=== PATIENT | male | born 1965 | race Caucasian/White ===

== ENCOUNTER 2016-12-25 21:51 | Inpatient (IN) | payer MEDICAID ==
[~2016-12-25] VITALS: Ht 170.2 cm; Wt 77.1 kg
--- NOTE | 2016-12-25 21:51 | NUR ---
Patient was BIBA and taken to bed 05 via gurney per EMS.
[2016-12-25 21:58] VITALS: BP 184/106
--- NOTE | 2016-12-25 22:07 | NUR ---
51Y/M BIBA W/C/O CHEST PAIN X 1 DAY. PER EMS; PT. HAS BEEN DRINKING FOR DAYS AND STATES STARTED HAVING PRESSURE CHEST PAIN THAT COMES AND GOES. ELEVATED BP 216/130, BS 377 ON SCENE. PT DENIES ANY MED HX.
--- NOTE | 2016-12-25 22:08 | NUR ---
ER MD NOTIFIED OF PT'S VS AND CONDITION. EKG DONE AT BEDSIDE.
[2016-12-25] MEDS ORDERED: ONDANSETRON 4 MG/2 ML VIAL IVP ONE (22:35)
[2016-12-25] MEDS ORDERED: NACL 0.9% 1,000 ML IV ONE (22:35)
[2016-12-25 22:49] LABS: HEMATOCRIT 46.5 % (36-52); HEMOGLOBIN 15.7 g/dL (12.0-18.0); MEAN CORPUSCULAR HEMOGLOBIN 31 pg (27-31); MEAN CORPUSCULAR HGB CONC 34 g/dL (33-37); MEAN CORPUSCULAR VOLUME 90 fL (80-94); PLATELET COUNT (AUTO) 308 K/uL (140-450); RED BLOOD CELL COUNT(AUTO) 5.16 MIL/uL (4.20-6.10); RED CELL DISTRIBUTION WIDTH 12.4 % (11.6-13.7); WHITE BLOOD COUNT (AUTO) 18.5 K/uL (4.8-10.8)
[2016-12-25] MEDS ORDERED: LORazepam 2 MG/ML VIAL IVP ONE (22:50)
[2016-12-25 22:52] LABS: ALBUMIN 2.6 g/dL (3.4-5.0); ANION GAP 16.8 (8-16); CALCIUM 6.9 mg/dL (8.5-10.1); CARBON DIOXIDE 22.2 mmol/L (21-32); CREATININE 1.1 mg/dL (0.7-1.3); TOTAL BILIRUBIN 1.9 mg/dL (0.0-1.0); TOTAL PROTEIN, SERUM 7.1 g/dL (6.4-8.2)
[2016-12-25 22:56] LABS: BAND % (MANUAL) 3 % (0-8); LYMPHOCYTES % (MANUAL) 7 % (20-46); MONOCYTES % (MANUAL) 3 % (5-12); NEUTROPHILS % (MANUAL) 87 (43-65)
--- NOTE | 2016-12-25 23:00 | NUR ---
NEW IN LINE 18 GH PLACED ON R FOREARM D/T IV DISLOGEMENT FRM L HAND. PT TOLERATED WELL.
[2016-12-25] MEDS ORDERED: ACETAMINOPHEN 325 MG TAB PO PRN (23:30)
[2016-12-25] MEDS ORDERED: MORPHINE SULFATE 2 MG/ML SYR IVP PRN (23:30)
[2016-12-25] MEDS ORDERED: HYDROcodone/APAP 5/325 MG 1 TAB TAB PO PRN (23:30)
[2016-12-25] MEDS ORDERED: DEXTROSE 50% 50 ML SYR IVP PRN (23:30)
--- NOTE | 2016-12-25 23:34 | NUR ---
Patient will be admitted to care of NIKOLAI. Admited to TELEMERY. Will go to [id number]. Belongings list completed. Report to CARYN FABIAN.
[2016-12-25 23:40] VITALS: BP 158/106
--- NOTE | 2016-12-25 23:40 | NUR ---
Admitted from ER, with chief complaint of CHEST PAIN, DX CHEST PAIN. 51 y/o, Male, DROWSY BUT AROUSABLE, ABLE TO VERBALIZE NEEDS. AOX2 TO NAME AND SITUATION. PT C/O DULL INTERMITTENT CHEST PAIN, REFUSES PAIN MED AT THIS TIME. COMPUTER GRAPHIC DESIGNER IN PLACE. SCDS IN PLACE. PT ABLE TO AMBULATE TO RESTROOM WITH STANDBY ASSIST. IV ACCESS TO RIGHT FOREARM 18G, WILL ADMINISTER IVF. oriented to call light, bed, phone,television, bathroom, smoking policy, visiting hours, procedures, ID bracelet on. Belongings list checked. ALL NEEDS MET. SAFETY MEASURES ENSURED. CALL LIGHT WITHIN REACH. WILL CONTINUE TO MONITOR.
[2016-12-26] VITALS (9 sets, daily range): BP systolic 109–173; BP diastolic 51–107
[2016-12-26] MEDS: NACL 0.9% 1,000 ML IV SCH ×3 (00:15→19:28)
[2016-12-26] MEDS: INSULIN LISPRO SLIDING SCALE 100 UNITS/ML VIAL SUBQ PRN ×2 (00:53→06:32)
--- NOTE | 2016-12-26 00:53 | NUR ---
BLOOD SUGAR 396, INSULIN COVERAGE ADMINISTERED WITH EDUCATION. PT VERBALIZED UNDERSTANDING, TOLERATED MED WELL. IVF INFUSING WELL. SAFETY MEASURES ENSURED. CALL LIGHT WITHIN REACH.
[2016-12-26] MEDS ORDERED: LOSARTAN 25 MG TAB PO SCH (03:53)
[2016-12-26] MEDS ORDERED: METOPROLOL 25 MG TAB PO SCH (03:53)
--- NOTE | 2016-12-26 03:54 | NUR ---
CALLED Dick JOHN MADE AWARE OF PT'S DX AND HX, AND CURRENT HIGH BP 166/107 AND 173/102, HR 92. MD ORDERED METOPROLOL 25MG BID PO WITH FIRST DOSE TO GIVE NOW AND LOSARTAN 50MG DAILY PO WITH FIRST DOSE TO GIVE NOW. ORDERS PENDING, WILL CARRY OUT.
[2016-12-26] MEDS: ONDANSETRON 4 MG/2 ML VIAL IVP PRN ×3 (04:17→19:57)
--- NOTE | 2016-12-26 04:17 | NUR ---
ADMINISTERED METOPROLOL 25MG PO NOW AND LOSARTAN 50MG PO NOW ORDERED DUE TO BP 173/102, HR 92. PT C/O PAIN. SEE PAIN ASSESSMENT. ADMINISTERED NORCO ORDERED. PT C/O NAUSEA. ADMINISTERED ZOFRAN WITH EDUCATION. PT VERBALIZED UNDERSTANDING, TOLERATED MEDS WELL. SAFETY MEASURES ENSURED. CALL LIGHT WITHIN REACH. WILL CONTINUE TO MONITOR.
[2016-12-26] MEDS: LORazepam 1 MG TAB PO SCH ×3 (05:18→20:12)
--- NOTE | 2016-12-26 05:18 | NUR ---
BP RECHECKED, 151/93 AND 158/100, HR 85. PT SITTING AT BEDSIDE, STATING "I FEEL BAD, I'M HAVING WITHDRAWALS." PT C/O RESTLESSNESS AND ANXIETY, MILD SHAKING AT HANDS NOTED. SCHEDULED ATIVAN PO ADMINISTERED WITH EDUCATION. PT VERBALIZED UNDERSTANDING, TOLERATED MED WELL. SAFETY MEASURES ENSURED. WILL CONTINUE TO MONITOR.
--- NOTE | 2016-12-26 05:25 | NUR ---
MADE AWARE BY FAST FOOD CASHIER THAT PT HAD VOMITING EPISODE AFTER ATIVAN PO WAS JUST ADMINISTERED. PT STILL RESTLESS AND FEELING ANXIOUS WITH MILD SHAKING. WILL ADMINISTER ATIVAN IV ORDERED.
[2016-12-26] MEDS: LORazepam 2 MG/ML VIAL IVP PRN ×2 (05:50→11:24)
[2016-12-26] MEDS: BLOOD GLUCOSE MONITORING 1 DEV DEV FS SCH ×4 (05:50→20:15)
--- NOTE | 2016-12-26 05:51 | NUR ---
PT STILL RESTLESS AND ANXIOUS, ADMINISTERED ATIVAN IV ORDERED. BLOOD SUGAR 210, WILL ADMINISTER INSULIN COVERAGE ORDERED.
[2016-12-26 06:27] LABS: HEMATOCRIT 41.8 % (36-52); HEMOGLOBIN 14.6 g/dL (12.0-18.0); MEAN CORPUSCULAR HEMOGLOBIN 31 pg (27-31); MEAN CORPUSCULAR HGB CONC 35 g/dL (33-37); MEAN CORPUSCULAR VOLUME 89 fL (80-94); PLATELET COUNT (AUTO) 248 K/uL (140-450); RED BLOOD CELL COUNT(AUTO) 4.68 MIL/uL (4.20-6.10); RED CELL DISTRIBUTION WIDTH 12.6 % (11.6-13.7); WHITE BLOOD COUNT (AUTO) 15.2 K/uL (4.8-10.8)
--- NOTE | 2016-12-26 06:38 | NUR ---
PATIENT HAS BEEN SCREENED AND CATEGORIZED HIGH NUTRITION RISK. PATIENT WILL BE SEEN WITHIN 1-2 DAYS OF ADMISSION. 12/25/16-12/26/16 ESDRAS BURNETT MS, RDN
--- NOTE | 2016-12-26 06:41 | NUR ---
PT SLEEPING BUT AROUSABLE. BLOOD SUGAR 210, INSULIN COVERAGE ADMINISTERED WITH EDUCATION. PT VERBALIZED UNDERSTANDING, TOLERATED MED WELL. BP RECHECKED, 144/95, HR 73. CONDITION STABLE. SAFETY MEASURES ENSURED. CALL LIGHT WITHIN REACH.
[2016-12-26 07:22] LABS: CALCIUM 6.8 mg/dL (8.5-10.1); CARBON DIOXIDE 23.8 mmol/L (21-32); POTASSIUM 3.8 mmol/L (3.5-5.1)
--- NOTE | 2016-12-26 07:26 | NUR ---
RECEIVED LAB RESULT FOR SODIUM 118. DR Dick BRAVO NOTIFIED. NO NEW ORDERS.
--- NOTE | 2016-12-26 07:32 | NUR ---
CONDITION STABLE. ENDORSED PLAN OF CARE TO AM NURSE.
--- NOTE | 2016-12-26 07:32 | NUR ---
RECEIVED PT REPORT AT BEDSIDE FROM NIGHT NURSE. PT IS DROWSY AND SHOWS NO S/S OF DISTRESS ON ROOM AIR. PT IS AOX3 AND DENIES PAIN AND SOB. PT SKIN IS INTACT. NOTED IV ON THE R FA WITH IVF'S INFUSING WELL. PT VERBALIZED UNDERSTANDING OF POC FOR TODAY. WILL REINFORCE POC SINCE PT IS DROWSY. PT AMB WITH ASSISTANCE TO THE RESTROOM. PT HAD A BM AND VOIDED. PT AMB WAS UNSTEADY. PT WAS EDUCATED ON USING THE CALL LIGHT IF HE NEEDED TO GET OOB TO USE THE RESTROOM. PT IS LAYING IN BED NOW WITH THE BED LOWERED AND CALL LIGHT WITHIN REACH. PT ON TELE MONITORING WELL.
[2016-12-26 07:36] LABS: NEUTROPHILS % (MANUAL) 86 (43-65)
[2016-12-26 07:37] LABS: BAND % (MANUAL) 4 % (0-8); EOSINOPHILS % (MANUAL) 1 % (0-4); LYMPHOCYTES % (MANUAL) 5 % (20-46); MONOCYTES % (MANUAL) 4 % (5-12)
--- NOTE | 2016-12-26 07:53 | NUR ---
RECEIVED LAB RESULTS OF TROPONIN 0.085. NOTIFIED Dick BRAVO. NO NEW ORDERS.
[2016-12-26 08:05] LABS: CREATINE KINASE MB 25.2 ng/mL (0-3.6)
[2016-12-26 08:59] LABS: MAGNESIUM 1.5 mg/dL (1.8-2.4); PHOSPHORUS 3.7 mg/dL (2.5-4.9)
[2016-12-26] MEDS: LOSARTAN 50 MG TAB PO SCH (09:05)
--- NOTE | 2016-12-26 09:05 | NUR ---
ADMINISTERED SCHEDULED MEDICATIONS. PT TOLERATED ACTIVITY WELL. PT C/O NAUSEA. ADMINISTERED PRN NAUSEA MEDICATION. PT IS IN BED AND SHOWS NO S/S OF DISTRESS ON ROOM AIR. WILL CONTINUE TO MONITOR.
[2016-12-26] MEDS: FOLIC ACID 1 MG TAB PO SCH (09:06)
[2016-12-26] MEDS: METOPROLOL 25 MG TAB PO SCH ×2 (09:06→20:15)
[2016-12-26] MEDS: THIAMINE 100 MG TAB PO SCH (09:06)
[2016-12-26] MEDS: MULTIVITAMIN 1 TAB PO SCH (09:06)
--- NOTE | 2016-12-26 10:16 | NUR ---
PT IS IN BED SLEEPING AND SHOWS NO S/S OF DISTRESS ON ROOM AIR.
--- NOTE | 2016-12-26 10:49 | NUR ---
12/26/16 RD INITIAL ASSESSMENT COMPLETED PLEASE REFER TO NUTRITION ASSESSMENT UNDER CARE ACTIVITY FOR ESTIMATED NUTRITIONAL NEEDS. RD RECOMMENDATIONS: 1. CONTINUE ON CURRENT DIET TOLERATED BY PT. 2. CONSULT RDN PRN. 3. RD WILL F/U 2-3 DAYS; HIGH RISK. ESDRAS BURNETT, MS, RDN
--- NOTE | 2016-12-26 10:49 | NUR ---
NOTIFIED DR. Dick BRAVO OF MAGNESIUM LEVEL 1.5. AWAITING ORDERS.
--- NOTE | 2016-12-26 11:41 | NUR ---
PT STATED HE DOES NOT FEEL WELL. PT STATED HE IS "SHAKY". ADMINISTERED ATIVAN 2 MG IVP. PT SHOWS NO S/S OF DISTRESS WILL CONTINUE TO MONITOR.
[2016-12-26] MEDS ORDERED: MAG SULF 2000 MG/WATER PREMIX 50 ML IV SCH (12:00)
[2016-12-26 13:13] LABS: BILIRUBIN,URINE NEGATIVE (NEGATIVE); BLOOD, URINE 3+ (NEGATIVE); COLOR,URINE YELLOW (YELLOW); LEUKOCYTE ESTERASE ,URINE NEGATIVE (NEGATIVE); NITRITE, URINE NEGATIVE (NEGATIVE); PH,URINE 6.5 (5.0-9.0); PROTEIN,URINE 3+ (NEGATIVE); UGLUCOSE 2+ (NEGATIVE); UROBILINOGEN,URINE 0.2 EU/dL (0.2 - 1)
[2016-12-26 13:19] LABS: AMPHETAMINE, URINE NEG. ng/ml (NEG <=1000); BARBITURATE, URINE NEG. ng/ml (NEG <=200); BENZODIAZEPINE, URINE NEG. ng/mL (NEG <=200); CANNABINOID, URINE NEG. ng/mL (NEG <=50); COCAINE, URINE NEG. ng/mL (NEG <=300); OPIATE, URINE NEG. ng/mL (NEG <=2000); PHENCYCLIDINE SCREEN,URINE NEG. ng/mL (NEG <=25)
[2016-12-26 13:22] LABS: APPEARANCE,URINE SLIGHTLY HAZY (CLEAR)
[2016-12-26 13:23] LABS: BACTERIA,URINE OCCASSIONAL /HPF (None Seen); RBC,URINE 3-10 (FEW) /HPF (0-5); SQUAMOUS EPITHELIAL CELL,UR 0-3 (FEW) /LPF (0-3 (FEW)); WBC,URINE 0-5 (RARE) /HPF (0-5)
--- NOTE | 2016-12-26 14:00 | NUR ---
ADMINISTERED SCHEDULED MEDICATIONS. PT IS AAOX4 AND SHOWS NO S/S OF DISTRESS ON ROOM AIR.
--- NOTE | 2016-12-26 15:31 | NUR ---
RECEIVED CRITICAL LAB RESULTS FOR TROPONIN 0.086 DR Dick BRAVO IS AWARE OF TRENDING DOWN TROPONIN LEVEL STATED NO NEED TO CONTACT HIM OF 0.001 DIFFERENCES. WILL CONTINUE TO MONITOR PT.
[2016-12-26 15:39] LABS: CREATINE KINASE MB 15.7 ng/mL (0-3.6)
--- NOTE | 2016-12-26 16:30 | NUR ---
PT IS IN ROOM AND STATES HE HAS NO PAIN AND SOB. PT STATES HE IS FEELING BETTER. PT'S BED IS LOWERED WITH CALL LIGHT WITHIN REACH. WILL CONTINUE TO MONITOR.
--- NOTE | 2016-12-26 17:35 | NUR ---
PT IS IN BED SLEEPING AND SHOWS NO S/S OF DISTRESS ON ROOM AIR. WILL CONTINUE TO MONITOR.
--- NOTE | 2016-12-26 19:28 | NUR ---
GAVE REPORT TO NIGHT NURSE AT BEDSIDE. PT ENDORSED IN STABLE CONDITION.
--- NOTE | 2016-12-26 19:29 | NUR ---
PATIENT IS CURRENTLY AWAKE ALERT ORIENTED RESTING IN BED DENIES ANY CHEST PAIN AT THIS TIME,PATIENT COMPLAINS OF FEELING UPSET STOMACH AND NAUSEATED WHEN HE SEES HIS FOOD.PATIENT DIDN'T EAT HIS DINNER TONIGHT.IVF INFUSING WELL IV SITE PATENT.PATIENT ABLE TO MAKE NEEDS KNOWN.CALL LIGHT WITHIN REACH.
--- NOTE | 2016-12-26 19:51 | NUR ---
FAMILY AT BEDSIDE WITH THE PATIENT.PATIENT RESTING IN BED.
--- NOTE | 2016-12-26 20:03 | NUR ---
Patient's Plan of Care was discussed and reviewed with BAIL ATTACHER: KALEB PAZ
[2016-12-26 22:33] LABS: CREATINE KINASE MB 10.5 ng/mL (0-3.6)
[2016-12-27] VITALS: BP 152/85
--- NOTE | 2016-12-27 00:02 | NUR ---
PATIENT IS CURRENTLY RESTING IN BED NO COMPLAINS OF CHEST PAIN NO COMPLAINS OF N/V AT THIS TIME.PATIENT REQUESTED FOR A BLANKET AND IT WAS GIVEN TO THE PATIENT ORDERED.WILL CONTINUE TO MONITOR.
[2016-12-27] MEDS: NACL 0.9% 1,000 ML IV SCH ×2 (00:29→16:15)
--- NOTE | 2016-12-27 02:57 | NUR ---
PATIENT SLEEPING COMFORTABLY IN BED IN NO DISTRESS WILL CONTINUE TO MONITOR.
[2016-12-27 04:54] VITALS: BP 151/75
[2016-12-27] MEDS: LORazepam 1 MG TAB PO SCH ×3 (05:26→20:33)
--- NOTE | 2016-12-27 05:27 | NUR ---
PT IS CURRENTLY RESTING IN BED WAS MEDICATED WITH ATIVAN.PATIENT DENIES CHEST PAIN, PATIENT DENIES SOB.NEEDS MET WILL CONTINUE TO MONITOR.
[2016-12-27] MEDS: BLOOD GLUCOSE MONITORING 1 DEV DEV FS SCH ×4 (05:52→20:33)
[2016-12-27] MEDS: INSULIN LISPRO SLIDING SCALE 100 UNITS/ML VIAL SUBQ PRN ×4 (05:54→22:13)
--- NOTE | 2016-12-27 06:23 | NUR ---
PATIENT STABLE RESTING IN BED IN NO DISTRESS.WILL CONTINUE TO MONITOR.
[2016-12-27 06:51] LABS: ANION GAP 8.6 (8-16); CALCIUM 6.7 mg/dL (8.5-10.1); CARBON DIOXIDE 25.7 mmol/L (21-32); CREATININE 0.9 mg/dL (0.7-1.3); HEMATOCRIT 40.2 % (36-52); HEMOGLOBIN 14.2 g/dL (12.0-18.0); MEAN CORPUSCULAR HEMOGLOBIN 32 pg (27-31); MEAN CORPUSCULAR HGB CONC 35 g/dL (33-37); MEAN CORPUSCULAR VOLUME 89 fL (80-94); PLATELET COUNT (AUTO) 178 K/uL (140-450); POTASSIUM 3.3 mmol/L (3.5-5.1); RED BLOOD CELL COUNT(AUTO) 4.51 MIL/uL (4.20-6.10); RED CELL DISTRIBUTION WIDTH 12.7 % (11.6-13.7)
[2016-12-27 06:53] LABS: CREATINE KINASE, TOTAL 421 U/L (39-308)
[2016-12-27 07:06] LABS: MAGNESIUM 2.1 mg/dL (1.8-2.4)
[2016-12-27 07:07] LABS: PHOSPHORUS 2.4 mg/dL (2.5-4.9)
--- NOTE | 2016-12-27 07:10 | NUR ---
PATIENT STABLE REPORT ENDORSED TO CARYN MCGRATH AT BEDSIDE.SHE WILL RESUME CARE OF THE PATIENT.
--- NOTE | 2016-12-27 07:10 | NUR ---
RECEIVED PT REPORT AT BEDSIDE FROM NIGHT NURSE. PT IS AAOX4 AND SHOWS NO S/S OF DISTRESS ON ROOM AIR. IV NOTED ON THE R FA WITH IVF'S INFUSING WELL. PT SKIN IS INTACT. PT STATED HE HAD A BM THIS MORNING. PT DENIES PAIN AND SOB. PT DENIES CHEST PAIN. PT IS WAS EDUCATED ON POC FOR TODAY AND VERBALIZED UNDERSTANDING. WILL CONTINUE TO MONITOR.
[2016-12-27 07:24] LABS: BAND % (MANUAL) 5 % (0-8); BASOPHILS % (MANUAL) 0 % (0-2); EOSINOPHILS % (MANUAL) 0 % (0-4); LYMPHOCYTES % (MANUAL) 6 % (20-46); MONOCYTES % (MANUAL) 5 % (5-12); NEUTROPHILS % (MANUAL) 84 (43-65); PLATELET ESTIMATE ADEQUATE
[2016-12-27 07:55] VITALS: BP 138/89
--- NOTE | 2016-12-27 08:08 | NUR ---
SPOKE WITH DR Lorenzo BRAVO REGARDING POTASSIUM 3.3. RECEIVED ORDERS 40 MEQ POTASSIUM PO ONCE.
[2016-12-27] MEDS ORDERED: POTASSIUM CHLORIDE 10 MEQ TABER PO SCH ×2 (08:10→11:00)
[2016-12-27] MEDS: ONDANSETRON 4 MG/2 ML VIAL IVP PRN ×3 (08:10→17:48)
[2016-12-27] MEDS: LORazepam 2 MG/ML VIAL IVP PRN ×2 (08:10→17:48)
[2016-12-27] MEDS: MULTIVITAMIN 1 TAB PO SCH (08:10)
[2016-12-27] MEDS: THIAMINE 100 MG TAB PO SCH (08:10)
[2016-12-27] MEDS: FOLIC ACID 1 MG TAB PO SCH (08:10)
[2016-12-27] MEDS: METOPROLOL 25 MG TAB PO SCH ×2 (08:11→20:34)
[2016-12-27] MEDS: LOSARTAN 50 MG TAB PO SCH (08:11)
--- NOTE | 2016-12-27 08:11 | NUR ---
PT IS SITTING UP AND C/O NAUSEA. PT WAS GIVEN PRN NAUSEA MEDICATION. PT ALSO C/O FEELING AGITATED. PT HAS PRN MEDICATION FOR AGITATION. WILL ADMINISTER. SCHEDULED MEDICATIONS WERE ADMINISTERED WELL. PT TOLERATED ACTIVITY WELL. WILL CONTINUE TO MONITOR.
--- NOTE | 2016-12-27 10:13 | NUR ---
PT IS WATCHING TV WITH NO C/O PAIN, CHEST PAIN, OR SOB. PT BED IS LOWERED WITH CALL LIGHT WITHIN REACH WILL CONTINUE TO MONITOR.
[2016-12-27] MEDS ORDERED: POTASSIUM PHOSPHATE 15 MM in NACL 0.9% 250 ML IV SCH (11:00)
[2016-12-27 12:00] VITALS: BP 149/92
--- NOTE | 2016-12-27 12:04 | NUR ---
ADMINISTERED SCHEDULED MEDICATIONS. PT TOLERATED ACTIVITY WELL. PT C/O NAUSEA WILL ADMINISTER PRN NAUSEA MEDICATION.
--- NOTE | 2016-12-27 14:00 | NUR ---
PT HAS FAMILY AT BEDSIDE. PT IS AAOX2 AND SHOWS NO S/S OF DISTRESS ON ROOM AIR. ADMINISTERED SCHEDULED MEDICATIONS. PT TOLERATED WELL. PT BED IS LOWERED WITH CALL LIGHT WITHIN REACH. WILL CONTINUE TO MONITOR. Addendum: 12/27/16 at 1657 by Blanca Barron RN WRONG PT
--- NOTE | 2016-12-27 15:50 | NUR ---
PT IS SLEEPING AND SHOWS NO S/S OF DISTRESS ON ROOM AIR.
[2016-12-27 16:00] VITALS: BP 150/90
--- NOTE | 2016-12-27 17:30 | NUR ---
PT IS EATING DINNER AND TOLERATING WELL. PT SHOWS NO S/S OF DISTRESS ON ROOM AIR.
--- NOTE | 2016-12-27 19:20 | NUR ---
GAVE PT REPORT AT BEDSIDE. PT ENDORSED IN STABLE CONDITION.
--- NOTE | 2016-12-27 19:30 | NUR ---
RECEIVED REPORT FROM DAY RN AT BEDSIDE, PATIENT IS AAOX4 ON ROOM AIR, NO SOB OR SIGN OF DISTRESS AT THIS TIME, IV TO RIGHT FA GOT TAKEN OUT AT PATIENT AMBULATED TO THE RESTROOM. TIP OF CATHETER WAS INTACT. WILL INSERT NEW IV. PT DENIES PAIN AT THIS TIME, SKIN INTACT, DISCUSSED PLAN OF CARE WITH PATIENT, PATIENT VERBALIZED UNDERSTANDING, CALL LIGHT WITHIN REACH. WILL CONTINUE TO MONITOR.
[2016-12-27 20:00] VITALS: BP 167/96
--- NOTE | 2016-12-27 20:36 | NUR ---
PM MEDS ADMINISTERED, PT TOLERATED WELL, CALL LIGHT WITHIN REACH. WILL CONTINUE TO MONITOR.
--- NOTE | 2016-12-27 20:55 | NUR ---
NEW IV STARTED TO LEFT HAND 22G PATENT AND INTACT, PATIENT TOLERATED WELL, CALL LIGHT WITHIN REACH. WILL CONTINUE TO MONITOR
--- NOTE | 2016-12-27 22:30 | NUR ---
PT SLEEPING, NO SOB OR SIGN OF DISTRESS, CALL LIGHT WITHIN REACH. WILL CONTINUE TO MONITOR.
[2016-12-28] VITALS: BP 150/95
--- NOTE | 2016-12-28 00:15 | NUR ---
VITAL SIGNS STABLE, NO SOB OR SIGN OF DISTRESS, CALL LIGHT WITHIN REACH. WILL CONTINUE TO MONITOR.
[2016-12-28] MEDS: NACL 0.9% 1,000 ML IV SCH (01:43)
--- NOTE | 2016-12-28 02:15 | NUR ---
PT SLEEPING, NO SIGN OF DISTRESS, WILL CONTINUE TO MONITOR.
[2016-12-28 04:00] VITALS: BP 150/96
--- NOTE | 2016-12-28 05:15 | NUR ---
VITAL SIGNS STABLE, NO SIGN OF DISTRESS, CALL LIGHT WITHIN REACH. WILL CONTINUE TO MONITOR.
[2016-12-28] MEDS: LORazepam 1 MG TAB PO SCH (05:25)
[2016-12-28 05:48] LABS: BASOPHILS # (AUTO) 0.1 K/uL (0.00-0.22); EOSINOPHILS # (AUTO) 0.1 K/uL (0-0.4); EOSINOPHILS % (AUTO) 1.5 % (0.0-4.0); HEMATOCRIT 40.4 % (36-52); HEMOGLOBIN 14.1 g/dL (12.0-18.0); LYMPHOCYTES # (AUTO) 1.1 K/uL (2.0-11.5); LYMPHOCYTES % (AUTO) 14.2 % (20.5-51.1); MEAN CORPUSCULAR HEMOGLOBIN 32 pg (27-31); MEAN CORPUSCULAR HGB CONC 35 g/dL (33-37); MEAN CORPUSCULAR VOLUME 90 fL (80-94); MONOCYTES # (AUTO) 0.7 K/uL (0.8-1.0); NEUTROPHILS % (AUTO) 74.3 % (42.2-75.2); PLATELET COUNT (AUTO) 177 K/uL (140-450); RED BLOOD CELL COUNT(AUTO) 4.48 MIL/uL (4.20-6.10); RED CELL DISTRIBUTION WIDTH 12.8 % (11.6-13.7)
[2016-12-28 06:13] LABS: ANION GAP 10.3 (8-16); CALCIUM 7.1 mg/dL (8.5-10.1); CARBON DIOXIDE 24.5 mmol/L (21-32); CREATININE 0.9 mg/dL (0.7-1.3); POTASSIUM 3.8 mmol/L (3.5-5.1)
[2016-12-28 06:19] LABS: MAGNESIUM 2.1 mg/dL (1.8-2.4); PHOSPHORUS 2.8 mg/dL (2.5-4.9)
[2016-12-28] MEDS: BLOOD GLUCOSE MONITORING 1 DEV DEV FS SCH (06:33)
--- NOTE | 2016-12-28 07:30 | NUR ---
ENDORSED PATIENT TO DAY RN AT BEDSIDE, PATIENT IN STABLE CONDITION
--- NOTE | 2016-12-28 07:30 | NUR ---
RECEIVED PT REPORT AT BEDSIDE FROM NIGHT NURSE. PT IS AAOX4 AND SHOWS NO S/S OF DISTRESS ON ROOM AIR. IV NOTED ON THE R H WITH IVF'S INFUSING WELL. PT SKIN IS INTACT. PT STATED HE HAD A BM THIS MORNING. PT DENIES PAIN AND SOB. PT DENIES CHEST PAIN. PT IS WAS EDUCATED ON POC FOR TODAY AND VERBALIZED UNDERSTANDING. WILL CONTINUE TO MONITOR.
[2016-12-28 08:00] VITALS: BP 182/100
--- NOTE | 2016-12-28 08:00 | NUR ---
PT BP IS 182/100 HR 78 PT DENIES CHEST PAIN AND SOB. PT STATES DIZZINESS AND NAUSEA AND FEELING AGITATED. WILL ADMINISTER SCHEDULE MEDICATIONS AND MEDICATION FOR NAUSEA AND AGITATION. PAGED DR Lorenzo BRAVO REGARDING PT BP.
[2016-12-28 08:30] VITALS: BP 188/120
--- NOTE | 2016-12-28 08:30 | NUR ---
PT BP WAS REASSESS PT BP WAS TAKE ON THE L ARM IT WAS 188/120. MD Lorenzo BRAVO WAS PAGED AGAIN.
--- NOTE | 2016-12-28 08:45 | NUR ---
ADMINISTERED SCHEDULED MEDICATIONS AND PRN NAUSEA AND PRN AGITATION MEDICATION. WILL REASSESS BP IN 15 MIN.
[2016-12-28] MEDS: LOSARTAN 50 MG TAB PO SCH (08:47)
[2016-12-28] MEDS: METOPROLOL 25 MG TAB PO SCH (08:49)
[2016-12-28] MEDS: THIAMINE 100 MG TAB PO SCH (08:49)
[2016-12-28] MEDS: FOLIC ACID 1 MG TAB PO SCH (08:49)
[2016-12-28] MEDS: MULTIVITAMIN 1 TAB PO SCH (08:49)
[2016-12-28] MEDS: LORazepam 2 MG/ML VIAL IVP PRN (08:50)
[2016-12-28] MEDS: ONDANSETRON 4 MG/2 ML VIAL IVP PRN (08:50)
[2016-12-28 09:00] VITALS: BP 162/103
--- NOTE | 2016-12-28 09:00 | NUR ---
REASSESSED BP WAS 162/103 HR 87. PT STATES HE FEELS WORSE THAN WHEN HE CAME IN. PT DENIES CHEST PAIN AND SOB. DR Lorenzo BRAVO IS ON UNIT AND AWARE OF BP AND PT CONTINUOUS SYMPTOMS. MD ORDERED NEW MEDICATIONS TO GIVE. WILL CONTINUE TO MONITOR.
[2016-12-28] MEDS ORDERED: LOSA50TA1 PO (09:14)
[2016-12-28] MEDS ORDERED: FOLI1TAB90 PO (09:14)
[2016-12-28] MEDS ORDERED: THIA-8 PO (09:14)
[2016-12-28] MEDS ORDERED: MULT-405 PO (09:14)
[2016-12-28] MEDS ORDERED: METO25TA PO (09:14)
[2016-12-28 09:15] VITALS: BP 171/102
--- NOTE | 2016-12-28 09:15 | NUR ---
ADMINISTERED NEW ORDERED MEDICATION PER DR. Lorenzo BRAVO. PT BP IS 171/102. MD Lorenzo BRAVO AWARE OF PT BP. PT DENIES CHEST PAIN AND SOB. PT SHOWS NO S/S OF DISTRESS ON ROOM AIR. PT BED IS LOWERED WITH CALL LIGHT WITHIN REACH. WILL REASSESS PT BP.
[2016-12-28] MEDS ORDERED: HYDROCHLOROTHIAZIDE 25 MG TAB PO SCH (09:25)
--- NOTE | 2016-12-28 11:11 | NUR ---
PATIENT BP CHECKED, BP-176/105, NOTIFIED MD. PATIENT INSISTED THAT HE WANTS TO GO HOME AND WILL SIGN AMA, DR. Lorenzo BRAVO MADE AWARE AND GIVE PRESCRIPTION. EXPLAINED TO THE PATIENT THE RISK AND CONSEQUENCES AND VERBALIZED UNDERSTANDING. NO C/O CHEST PAIN, DIZZINESS AND HEADACHE.
--- NOTE | 2016-12-28 11:20 | NUR ---
PER NHAN AQUINO RN PT WOULD LIKE TO GO HOME AND SIGN PAPERWORK FOR AMA. PT IS AWARE OF THE BENEFITS OF STAYING AT [facility] AND THE RISKS OF LEAVING THE HOSPITAL WITHOUT CONTINUATION OF CARE UNDER MD ORDERS. PT STATES HE DOES FEEL WORSE BEING AT THE HOSPITAL AND WOULD LIKE TO GO HOME. PT SIGNED AMA PAPERWORK. REMOVED IV ON THE RH WITH CANNULA STILL INTACT. REMOVED WRISTBANDS AND TELE BOX. PT LEFT UNIT IN WHEELCHAIR.
[2016-12-28] MEDS ORDERED: LOSARTAN 50 MG TAB PO SCH (21:00)
[2016-12-29] MEDS ORDERED: HYDROCHLOROTHIAZIDE 25 MG TAB PO SCH (09:00)
== END 2016-12-28 11:20 | disposition left against medical advice (07) | DRG 203 ==
LOC: MED 21:51 → MTU 23:37
PROVIDERS: ADMIT Internal Medicine Cardiovascular Disease; ATTEND Internal Medicine Cardiovascular Disease
DX: M94.0 Chondrocostal junction syndrome [Tietze] (principal); E43 Unspecified severe protein-calorie malnutrition; M62.82 Rhabdomyolysis; E87.1 Hypo-osmolality and hyponatremia; E83.39 Other disorders of phosphorus metabolism; E83.51 Hypocalcemia; I10 Essential (primary) hypertension; E11.9 Type 2 diabetes mellitus without complications; D72.829 Elevated white blood cell count, unspecified; F10.129 Alcohol abuse with intoxication, unspecified; E87.6 Hypokalemia; Z53.21 Procedure and treatment not carried out due to patient leaving prior to being seen by health care provider; Y90.9 Presence of alcohol in blood, level not specified
CPT/HCPCS: 36415; 71010; 80048; 80053; 80305; 81001; 82550; 82553; 82948; 83735; 84100; 84484; 85025; 85651; 86140; 87040; 87081; 87086; 93005; 96361; 96374; 96375; 99285; G0482; J1815; J2060; J2405; J3475; J7030; Q0092

== ENCOUNTER 2018-07-19 08:06 | Inpatient (IN) | payer MEDICAID, OTHER ==
[~2018-07-19] VITALS: Ht 167.6 cm; Wt 82.1 kg
[~2018-07-19 08:06] MED LIST: FOLI1TAB90 PO; LOSA50TA1 PO; METO25TA PO; MULT-405 PO; THIA-34 PO
[2018-07-19 08:21] VITALS: BP 166/84
--- NOTE | 2018-07-19 08:27 | NUR ---
C/O PROGRESSIVE ANXIETY OVER LAST 3 DAYS. HX--HTN, BPH, CHF, ANXIETY RX--NORVASC 10MG QD, CLONIDINE 0.3MG BID, ASA 81 QD, NIFEDIPINE 60MG BID, LISINOPRIL-HCTZ 20MG-25MG QD, VITAMIN B 0.8 HS, VITAMIN D3. DENIES N/V/D; SKIN IS PINK/WARM/DRY; AAOX4 WITH EVEN AND STEADY GAIT; LUNGS CLEAR BL; HR EVEN AND REGULAR; PT DENIES ANY FEVER, CP, SOB, OR COUGH AT THIS TIME; PATIENT STATES PAIN OF 0/10 AT THIS TIME. PATIENT POSITIONED FOR COMFORT; HOB ELEVATED; BEDRAILS UP X2; BED DOWN. ER MD MADE AWARE OF PT STATUS.
--- NOTE | 2018-07-19 08:57 | NUR ---
VITAL SIGNS ARE WITHIN NORMAL LIMITS. SPOKE WITH DR BAHENA. SODIUM 123L. NEW ORDERS FOR NS AT 75ML/HR. ALBUMIN 25% 25GM Q 8H FOR 24HR. Addendum: 07/19/18 at 2205 by Chanel Jurado RN WRONG TIME 2056
--- NOTE | 2018-07-19 09:53 | NUR ---
EKG AT BEDSIDE.
--- NOTE | 2018-07-19 09:56 | NUR ---
LAB AT BEDSIDE.
[2018-07-19 10:20] LABS: BASOPHILS % (AUTO) 0.5 % (0.0-2.0); EOSINOPHILS % (AUTO) 0.3 % (0.0-4.0); HEMATOCRIT 27.3 % (36-52); HEMOGLOBIN 9.6 g/dL (12.0-18.0); LYMPHOCYTES # (AUTO) 0.6 K/uL (2.0-11.5); LYMPHOCYTES % (AUTO) 7.9 % (20.5-51.1); MEAN CORPUSCULAR HEMOGLOBIN 30 pg (27-31); MEAN CORPUSCULAR HGB CONC 35 g/dL (33-37); MEAN CORPUSCULAR VOLUME 85.2 fL (80-94); MONOCYTES # (AUTO) 0.4 K/uL (0.8-1.0); MONOCYTES % (AUTO) 6.1 % (1.7-9.3); NEUTROPHILS # (AUTO) 5.9 K/uL (1.8-7.7); NEUTROPHILS % (AUTO) 85.2 % (42.2-75.2); PLATELET COUNT (AUTO) 183 K/uL (140-450); RED BLOOD CELL COUNT(AUTO) 3.21 MIL/uL (4.20-6.10); RED CELL DISTRIBUTION WIDTH 12.2 % (11.6-13.7)
[2018-07-19 10:34] LABS: ALBUMIN 2.5 g/dL (3.4-5.0); ANION GAP 14.8 (8-16); CARBON DIOXIDE 20.1 mmol/L (21-32); CREATININE 3.9 mg/dL (0.7-1.3); POTASSIUM 3.9 mmol/L (3.5-5.1); TOTAL BILIRUBIN 0.5 mg/dL (0.0-1.0)
[2018-07-19] MEDS ORDERED: NACL 0.9% 1,000 ML IV SCH (11:01)
[2018-07-19] MEDS ORDERED: ONDA4TAB PO (11:04)
[2018-07-19] MEDS ORDERED: ACETAMINOPHEN 325 MG TAB PO PRN (11:05)
[2018-07-19] MEDS ORDERED: HYDROcodone/APAP 7.5/325 MG 1 TAB PO PRN (11:05)
[2018-07-19] MEDS ORDERED: MORPHINE SULFATE 2 MG/ML SYR IVP PRN (11:05)
[2018-07-19] MEDS ORDERED: CLON0.3T23 PO (11:06)
[2018-07-19] MEDS ORDERED: AMLO10TA PO (11:07)
[2018-07-19] MEDS ORDERED: VITA1TAB44 PO (11:08)
[2018-07-19] MEDS ORDERED: TAMS0.4C96 PO (11:09)
--- NOTE | 2018-07-19 11:20 | NUR ---
PT TAKEN TO TELE FLOOR BY CARYN REEVES
[2018-07-19 11:35] VITALS: BP 184/93
--- NOTE | 2018-07-19 11:35 | NUR ---
RECEIVED BEDSIDE REPORT FROM COMMERCIAL UNDERWRITER NURSE. PATIENT IS AWAKE, ALERT AND ORIENTEDX4. NO SIGNS OF DISTRESS ON RA. PATIENT IS AMBULATORY. GAIT IS STEADY. SKIN IS INTACT BUT HAS DISCOLORATION THROUGHOUT BODY, STATES HE THOUGHT IT WAS BUG BITES AND THE DISCOLORATION STAYED. IV ON L WRIST 20G SL. CLEAN, DRY AND INTACT. ADMISSION QUESTIONS ANSWERED AT THIS TIME. MRSA SWAB DONE. TELE MONITOR IN PLACE. BED IN LOW POSITION. CALL LIGHT WITHIN REACH. WILL CONTINUE TO MONITOR
--- NOTE | 2018-07-19 11:41 | NUR ---
Patient will be admitted to care of DR RANDOLPH. Admited to TELE. Will go to room 107A. Belongings list completed. Report to IVAN RUBIN.
[2018-07-19] MEDS ORDERED: amLODIPine 5 MG TAB PO SCH (11:46)
[2018-07-19] MEDS ORDERED: cloNIDine 0.1 MG TAB PO SCH (11:47)
[2018-07-19 12:13] LABS: APPEARANCE,URINE CLEAR (CLEAR); BILIRUBIN,URINE NEGATIVE (NEGATIVE); BLOOD, URINE 2+ (NEGATIVE); COLOR,URINE YELLOW (YELLOW); LEUKOCYTE ESTERASE ,URINE NEGATIVE (NEGATIVE); NITRITE, URINE NEGATIVE (NEGATIVE); UGLUCOSE 1+ (NEGATIVE)
[2018-07-19 12:17] LABS: RBC,URINE 3-10 (FEW) /HPF (0-5); WBC,URINE 0-5 (RARE) /HPF (0-5)
[2018-07-19 12:18] LABS: COARSE GRANULAR CASTS,URINE 0-10 /LPF (None Seen)
[2018-07-19] MEDS ORDERED: LORazepam 0.5 MG TAB PO PRN (12:20)
[2018-07-19 12:21] LABS: BARBITURATE, URINE NEG. ng/ml (NEG <=200); BENZODIAZEPINE, URINE NEG. ng/mL (NEG <=200); CANNABINOID, URINE NEG. ng/mL (NEG <=50); COCAINE, URINE NEG. ng/mL (NEG <=300); OPIATE, URINE NEG. ng/mL (NEG <=2000); PHENCYCLIDINE SCREEN,URINE NEG. ng/mL (NEG <=25)
[2018-07-19 12:23] LABS: PROTHROMBIN TIME 9.7 secs (10.8-13.4)
[2018-07-19] MEDS ORDERED: LORazepam 0.5 MG TAB PO SCH (12:30)
[2018-07-19 12:31] LABS: CHOL/HDL RATIO 2.2 (1-4.5); MAGNESIUM 1.7 mg/dL (1.8-2.4); PHOSPHORUS 4.5 mg/dL (2.5-4.9); THYROID STIMULATING HORMONE 2.93 uIU/mL (0.34-3.74)
--- NOTE | 2018-07-19 12:50 | NUR ---
ADMINISTERED PRN ANXIETY MEDS. PATIENT TOLERATED WELL. WILL CONTINUE TO MONITOR
[2018-07-19] MEDS: cloNIDine 0.1 MG TAB PO SCH ×2 (13:00→21:39)
--- NOTE | 2018-07-19 13:00 | NUR ---
DR DE LA GARZA SAID OK TO HOLD B/P MED B/P 150/82
--- NOTE | 2018-07-19 13:07 | NUR ---
PATIENT HAS BEEN SCREENED AND CATEGORIZED HIGH NUTRITION RISK. PATIENT WILL BE SEEN WITHIN 1-2 DAYS OF ADMISSION. 07/19/18-07/20/[address]
[2018-07-19 13:32] VITALS: BP 150/82
--- NOTE | 2018-07-19 14:25 | NUR ---
HIM SENT TO [facility].
--- NOTE | 2018-07-19 14:44 | NUR ---
GAVE PATIENT NEW URINAL FOR ANOTHER URINE SAMPLE. PATIENT WILL TELL ME WHEN HE HAS URINE TO SEND TO LAB
[2018-07-19 15:05] LABS: ANION GAP 12.3 (8-16); CARBON DIOXIDE 22.1 mmol/L (21-32); CREATININE 3.8 mg/dL (0.7-1.3); POTASSIUM 4.4 mmol/L (3.5-5.1)
[2018-07-19] MEDS ORDERED: LORazepam 1 MG TAB PO SCH (15:40)
[2018-07-19] MEDS: TAMSULOSIN 0.4 MG CAP PO SCH (15:53)
--- NOTE | 2018-07-19 15:55 | NUR ---
URINE SAMPLE COLLECT. ADMINISTER MEDS ORDERED. WILL CONTINUE TO MONITOR. FAMILY AT BEDSIDE
[2018-07-19 16:00] VITALS: BP 147/78
[2018-07-19] MEDS ORDERED: MAGNESIUM OXIDE 400 MG TAB PO SCH (16:00)
--- NOTE | 2018-07-19 16:54 | NUR ---
PATIENT IS SLEEPING. NO SIGNS OF DISTRESS. WILL CONTINUE TO MONITOR THE PATIENT
--- NOTE | 2018-07-19 18:10 | NUR ---
PATIENT IS SLEEPING. NOT EATING HIS DINNER AT THIS TIME. WILL CONTINUE TO MONITOR THE PATIENT
--- NOTE | 2018-07-19 19:17 | NUR ---
GAVE BEDSIDE REPORT TO INFORMATION CLERK BROKERAGE NURSE. PATIENT ENDORSED IN STABLE CONDITION
--- NOTE | 2018-07-19 19:18 | NUR ---
RECEIVED BEDSIDE REPORT FROM IVAN RUBIN. PT IN STABLE CONDITION. A&OX4. FAMILY IS AT BEDSIDE. PT FLUID RESTRICTION OF 500ML. PT AWARE. SIGN ON DOOR. IV ON L WRIST 20 G INFUSING IVF PER ORDERS. SKIN INTACT HAS SOME DISCOLORATION ON BODY. NO OPEN WOUNDS. PT ABLE TO AMBULATE PER NURSE. ORDERS FROM DR BAHENA TO CALL IF SODIUM DECREASES AND HOLD FLUIDS. PT IS GETTING BMP Q 4H. FAMILY AT BEDSIDE PT NOT EATING DINNER. PLAN OF CARE WAS DISCUSSED. WILL CONTINUE TO MONITOR.
--- NOTE | 2018-07-19 19:35 | NUR ---
PER DAY SHIFT RN. PT HAD BMP DRAWN JUST NOW. AND SPOKE WITH DR BAHENA TO PAGED HIM WITH RESULTS.
[2018-07-19 19:49] LABS: ANION GAP 14.4 (8-16); CARBON DIOXIDE 20.6 mmol/L (21-32); CREATININE 3.8 mg/dL (0.7-1.3)
[2018-07-19 20:00] VITALS: BP 156/82
--- NOTE | 2018-07-19 20:57 | NUR ---
REPORTED SODIUM LEVEL [address] CALL[address] WILL CARRY OUT NEW ORDERS.
[2018-07-19] MEDS ORDERED: ALBUMIN HUMAN 25% 50 ML IV SCH (21:00)
[2018-07-19] MEDS: ALBUMIN HUMAN 25% 100 ML IV SCH (21:38)
--- NOTE | 2018-07-19 21:39 | NUR ---
VITAL SIGNS ARE WITHIN NORMAL LIMITS. DUE MEDICATIONS GIVEN. PT TOLERATED WELL.
[2018-07-19] MEDS: NACL 0.9% 1,000 ML IV SCH (21:40)
[2018-07-20] VITALS: BP 139/83
--- NOTE | 2018-07-20 | NUR ---
PT SLEEPING COMFORTABLY IN BED. IS EASILY AROUSABLE. VITAL SIGNS ARE WITHIN NORMAL LIMITS. ALL NEEDS MET AT THIS TIME.
[2018-07-20 00:46] LABS: ANION GAP 9.9 (8-16); CARBON DIOXIDE 21.9 mmol/L (21-32); CREATININE 3.9 mg/dL (0.7-1.3); POTASSIUM 3.8 mmol/L (3.5-5.1)
--- NOTE | 2018-07-20 00:53 | NUR ---
REPORTED SODIUM LEVEL OF [address] CALL[address] N0 CHANGE IN ORDERS. EXCEPT CALL HIM IF NEXT LEVEL IS LESS THAN 123 OR GREATER THAN 129. WILL CONTINUE TO MONITOR.
--- NOTE | 2018-07-20 03:04 | NUR ---
PT SLEEPING COMFORTABLY IN BED. NO S/S OF DISTRESS. CALL LIGHT WITHIN REACH.
[2018-07-20 04:11] VITALS: BP 141/81
[2018-07-20] MEDS: cloNIDine 0.1 MG TAB PO SCH ×3 (04:13→20:28)
[2018-07-20] MEDS: NACL 0.9% 1,000 ML IV SCH ×3 (04:17→16:20)
[2018-07-20] MEDS: ALBUMIN HUMAN 25% 100 ML IV SCH ×3 (04:19→21:15)
--- NOTE | 2018-07-20 04:30 | NUR ---
VITAL SIGNS ARE WITHIN NORMAL LIMITS. ALL NEEDS MET AT THIS TIME. WILL CONTINUE TO MONITOR.
[2018-07-20 04:36] LABS: ANION GAP 11.2 (8-16); CARBON DIOXIDE 21.7 mmol/L (21-32); CREATININE 3.9 mg/dL (0.7-1.3); POTASSIUM 3.9 mmol/L (3.5-5.1)
--- NOTE | 2018-07-20 06:17 | NUR ---
SPOKE DR BAHENA ABOUT PTS SODIUM LEVEL 125. NEW ORDER TO INCREASE IVF TO NS AT 100ML/HR. WILL FOLLOW THROUGH.
[2018-07-20 06:20] LABS: T4 (THYROXINE) 9.6 ug/dL (4.5-12.0)
--- NOTE | 2018-07-20 07:36 | NUR ---
ENDORSED TO DAY SHIFT RN. PT IS IN STABLE CONDITION.
--- NOTE | 2018-07-20 07:40 | NUR ---
RECEIVED PT FROM ROLL CHANGER NURSE, PT TIS AWAKE AND SEATED ON THE BED WITH SIDE RAILS UP AND CALL LIGHT WITHIN REACH, PT HAS AN IV LINE ON THE LEFT WRIST G.20 WITH NS AT 100ML/HR INFUSING. PT DENIES PAIN AND NO SIGN OF DISTRESS NOTED. WILL CONTINUE TO MONITOR PT.
[2018-07-20 08:00] VITALS: BP 142/85
[2018-07-20] MEDS: ONDANSETRON 4 MG/2 ML VIAL IM/IVP PRN (08:49)
[2018-07-20] MEDS: VIT-B COMP/VIT-C/FOLIC ACID 1 TAB PO SCH (08:49)
[2018-07-20] MEDS: amLODIPine 5 MG TAB PO SCH (08:50)
[2018-07-20] MEDS: LORazepam 1 MG TAB PO PRN (08:50)
--- NOTE | 2018-07-20 09:03 | NUR ---
PT IS AWAKE AND VERBALIZED SOB, O2 WAS PLACED AT 2L, DR. DE LA GARZA INFORMED, VITAL SIGNS TAKEN AND [id number] NORMAL LIMITS, ORAL AND IV MEDICATIONS WERE GIVEN AND PT TOLERATED IT. WILL MONITOR PT.
[2018-07-20 10:26] LABS: ANION GAP 13.1 (8-16); CARBON DIOXIDE 18.8 mmol/L (21-32); CREATININE 3.9 mg/dL (0.7-1.3); POTASSIUM 3.9 mmol/L (3.5-5.1)
[2018-07-20] MEDS ORDERED: FUROSEMIDE 20 MG/2 ML VIAL IVP SCH (11:30)
[2018-07-20 12:00] VITALS: BP 145/79
[2018-07-20 12:36] LABS: ANION GAP 11.1 (8-16); CREATININE 3.9 mg/dL (0.7-1.3); POTASSIUM 4.1 mmol/L (3.5-5.1)
--- NOTE | 2018-07-20 12:51 | NUR ---
07/20/18 RD INITIAL ASSESSMENT COMPLETED PLEASE REFER TO NUTRITION ASSESSMENT UNDER CARE ACTIVITY FOR ESTIMATED NUTRITIONAL NEEDS. 1. RECOMMEND 60 [address] PROTEIN DIET 2. RD PROVIDED RENAL DIET EDUCATION 3. RD TO FOLLOW-UP 3-5 DAYS, MODERATE RISK WARD BRITO, RD
--- NOTE | 2018-07-20 13:40 | NUR ---
PT IS AWAKE WITH SON ON THE BEDSIDE, ORAL MEDICATION GIVEN, V/S CHECKED, ALBUMIN IVPB GIVEN. NO SIGN OF DISTRESS NOTED, WILL MONITOR PT.
--- NOTE | 2018-07-20 15:20 | NUR ---
PT WAS CLEANED AND REPOSITIONED NOW AND MADE COMFORTABLE ON THE BED.
--- NOTE | 2018-07-20 15:23 | NUR ---
CM NOTE RECEIVED ORDER TO SCHEDULE PATIENT FOR OUTPATIENT FOLLOW UP APPOINTMENT WITH DR. BAHENA. PER FLORECITA OF DR. BAHENA'S CLINIC, THE PATIENT IS SET UP FOR OUTPATIENT FOLLOW UP APPOINTMENT ON JULY 27, 2018 3:15 PM AT THE CLINIC [place] [address] [place] [address] [place] [address]. FLORECITA REQUESTED FOR FACESHEET, H&P, NEPHRO CONSULT, LAB RESULTS AND LIST OF MEDS BE FAXED TO HER IN DR. BAHENA'S CLINIC [phone]. FAXED INFO. DR. DE LA GARZA MADE AWARE. I GAVE PATIENT A COPY OF HIS OUTPATIENT FOLLOW UP APPOINTMENT WITH DR. BAHENA. Addendum: 07/21/18 at 0857 by Nancy Romo PER FLORECITA OF DR. BAHENA'S CLINIC, DR. BAHENA WILL NOT BE IN THE CLINIC ON JULY 29, 2018 AND THERE IS NO AVAILABLE APPOINTMENT FOR JULY 28, 2018. DR DE LA GARZA MADE AWARE AND HE SAID THAT JULY 27, 2018 APPOINTMENT IS GOOD.
[2018-07-20 16:00] VITALS: BP 148/73
[2018-07-20] MEDS: TAMSULOSIN 0.4 MG CAP PO SCH (16:37)
--- NOTE | 2018-07-20 16:38 | NUR ---
PT IS ASLEEP, AWAKEN AND VITAL SIGN TAKEN AND IS WITHIN NORMAL LIMIT. ORAL MEDICATION WAS GIVEN AND PT TOLERATED IT. NO SIGN OF DISTRESS NOTED AND WILL CONTINUE TO MONITOR PT.
[2018-07-20 18:51] LABS: ANION GAP 10.5 (8-16); CARBON DIOXIDE 20.6 mmol/L (21-32); POTASSIUM 4.1 mmol/L (3.5-5.1)
[2018-07-20] MEDS: ALBUTEROL SULFATE/IPRATROPIU 3 ML SOL IH SCH (18:57)
--- NOTE | 2018-07-20 19:05 | NUR ---
RECEIVED ENDORSEMENT FROM REESE GROVES; PATIENT IS A&Ox4, ABLE TO MAKE NEEDS KNOWN. NO SOB OR DISTRESS NOTED. IV ON L WRIST, 20 GAUGE, INFUSING IVF PER ORDERS. SKIN INTACT. PT ABLE TO AMBULATE PER NURSE. PT IS GETTING BMP Q6H. FAMILY AT BEDSIDE. PLAN OF CARE WAS DISCUSSED. BED IN THE LOWEST POSITION, CALL LIGHT WITHIN REACH. INITIAL ASSESSMENT DONE, ALL SAFETY PRECAUTIONS MET. WILL CONTINUE TO MONITOR.
--- NOTE | 2018-07-20 19:15 | NUR ---
ENDORSED PT TO CARD CUTTER HELPER NURSE, TRUONG AND FRANK, FOR CONTINUITY OF CARE. PT IS STABLE AT THIS TIME.
[2018-07-20 20:00] VITALS: BP 139/81
--- NOTE | 2018-07-20 20:03 | NUR ---
GIVEN DUE MEDS, NO S/SX OF SOB OR DISTRESS NOTED. TOLERATED WELL, WILL CONTINUE TO MONITOR.
[2018-07-20] MEDS: FUROSEMIDE 20 MG/2 ML VIAL IVP SCH (21:14)
--- NOTE | 2018-07-20 22:11 | NUR ---
ROUNDS DONE. PATIENT ASLEEP, EYES CLOSED, VISIBLE CHEST RISE AND FALL NOTED. WILL CONTINUE TO MONITOR.
[2018-07-21] VITALS: BP 133/77
--- NOTE | 2018-07-21 00:12 | NUR ---
ROUNDS MADE. PATIENT ASLEEP, EYES CLOSED, VISIBLE CHEST RISE AND FALL NOTED. WILL CONTINUE TO MONITOR.
--- NOTE | 2018-07-21 01:55 | NUR ---
PT STATED HAVING SOB, PT SATURATION 86%, PUT PT ON 2LPM O2 VIA NC, SAT WENT UP TO 90% NOTIFIED DR. NATE DR ORDERED BREATHING TREATMENT, WILL CONTINUE WITH ORDERS AND MONITOR PT
[2018-07-21] MEDS: ALBUTEROL SULFATE/IPRATROPIU 3 ML SOL IH PRN ×2 (02:19→02:29)
[2018-07-21] MEDS: NACL 0.9% 1,000 ML IV SCH ×2 (02:20→12:20)
[2018-07-21] MEDS: LORazepam 1 MG TAB PO PRN ×2 (02:50→15:58)
[2018-07-21 04:00] VITALS: BP 127/72
--- NOTE | 2018-07-21 04:00 | NUR ---
VITALS DONE, ALL WITHIN NORMAL LIMITS. WILL CONTINUE TO MONITOR.
[2018-07-21 04:34] LABS: ALBUMIN 3.1 g/dL (3.4-5.0); ANION GAP 11.7 (8-16); CARBON DIOXIDE 21.2 mmol/L (21-32); MAGNESIUM 1.9 mg/dL (1.8-2.4); PHOSPHORUS 4.8 mg/dL (2.5-4.9); POTASSIUM 3.9 mmol/L (3.5-5.1); TOTAL BILIRUBIN 0.4 mg/dL (0.0-1.0)
[2018-07-21 04:48] LABS: CREATININE 4.3 mg/dL (0.7-1.3)
--- NOTE | 2018-07-21 04:48 | NUR ---
LAB CALLED FOR CRITICAL LAB VALUE CREATININE 4.3. MD SULLIVAN MADE AWARE, NO NEW ORDERS. WILL CONTINUE TO MONITOR.
[2018-07-21] MEDS: cloNIDine 0.1 MG TAB PO SCH ×3 (05:15→22:00)
[2018-07-21] MEDS: FUROSEMIDE 20 MG/2 ML VIAL IVP SCH (05:15)
[2018-07-21 05:40] LABS: EOSINOPHILS # (AUTO) 0.1 K/uL (0-0.4); EOSINOPHILS % (AUTO) 1.7 % (0.0-4.0); LYMPHOCYTES # (AUTO) 0.7 K/uL (2.0-11.5); MONOCYTES # (AUTO) 0.5 K/uL (0.8-1.0); RED BLOOD CELL COUNT(AUTO) 2.35 MIL/uL (4.20-6.10); WHITE BLOOD COUNT (AUTO) 8.4 K/uL (4.8-10.8)
[2018-07-21 06:16] LABS: BASOPHILS # (AUTO) 0.1 K/uL (0.00-0.22); BASOPHILS % (AUTO) 0.7 % (0.0-2.0); HEMOGLOBIN 7.1 g/dL (12.0-18.0); LYMPHOCYTES % (AUTO) 8.8 % (20.5-51.1); MEAN CORPUSCULAR HEMOGLOBIN 30 pg (27-31); MEAN CORPUSCULAR HGB CONC 35 g/dL (33-37); MEAN CORPUSCULAR VOLUME 86.9 fL (80-94); NEUTROPHILS % (AUTO) 82.8 % (42.2-75.2); PLATELET COUNT (AUTO) 143 K/uL (140-450); RED CELL DISTRIBUTION WIDTH 12.4 % (11.6-13.7)
--- NOTE | 2018-07-21 07:02 | NUR ---
LAB CALLED FOR CRITICAL LAB HEMATOCRIT 20.4, HEMOGLOBIN 7.1. DR. SULLIVAN MADE AWARE, NO NEW ORDERS.
[2018-07-21 07:03] LABS: HEMATOCRIT 20.4 % (36-52)
--- NOTE | 2018-07-21 07:05 | NUR ---
ENDORSED PATIENT TO AM SHIFT ZAINAB; PATIENT IN STABLE CONDITION.
--- NOTE | 2018-07-21 07:06 | NUR ---
RECEIVED BEDSIDE REPORT FROM RN FRANK AND TRUONG. PT STABLE, AWAKE, AND ALERT. DENIES PAIN. NO SOB OR ANY OTHER SIGNS OF DISTRESS NOTED. NO REDNESS, SWELLING, OR INFLAMMATION NOTED ON IV SITE, SALINE LOCKED. IV FLUIDS ON HOLD PER MD ORDER. BED IN LOW POSITION. CALL [facility] WITHIN REACH. SAFETY MEASURES IN PLACE. PLAN OF CARE REVIEWED.
--- NOTE | 2018-07-21 07:56 | NUR ---
AWAKE AND ALERT VERBALLY RESPONSIVE NO SOB NOTED ON SUPPLEMENTAL OXYGEN PATIENT WITH BREAKFAST TRAY REQUEST HHN THERAPY AT A LATER TIME
[2018-07-21 08:00] VITALS: BP 122/73
[2018-07-21] MEDS: ALBUTEROL SULFATE/IPRATROPIU 3 ML SOL IH SCH ×2 (08:21→19:36)
--- NOTE | 2018-07-21 08:21 | NUR ---
SATURATION 98% ON SUPPLEMENTAL OXYGEN AT 3 LPM VIA NC POST HHN THERAPY TITRATED FIO2 TO 2 LPM SHAHLA/RN NOTIFIED
[2018-07-21] MEDS: VIT-B COMP/VIT-C/FOLIC ACID 1 TAB PO SCH (08:49)
[2018-07-21] MEDS: amLODIPine 5 MG TAB PO SCH (08:49)
--- NOTE | 2018-07-21 08:49 | NUR ---
ADMINISTERED SCHEDULED MEDICATIONS. PT TOLERATED WELL. NO OTHER NEEDS AT THIS TIME.
--- NOTE | 2018-07-21 09:25 | NUR ---
DR. BAHENA AT THE BEDSIDE.
[2018-07-21] MEDS ORDERED: FUROSEMIDE 40 MG/4 ML VIAL IVP SCH ×2 (10:00→22:00)
[2018-07-21] MEDS ORDERED: FUROSEMIDE 100 MG in DEXTROSE 5% 100 ML IV SCH (11:30)
--- NOTE | 2018-07-21 12:50 | NUR ---
SPOKE WITH DR. BAHENA REGARDING PLAN OF CARE FOR PT.
[2018-07-21 13:26] LABS: BASOPHILS % (AUTO) 0.5 % (0.0-2.0); EOSINOPHILS % (AUTO) 0.2 % (0.0-4.0); HEMATOCRIT 22.8 % (36-52); HEMOGLOBIN 7.9 g/dL (12.0-18.0); LYMPHOCYTES # (AUTO) 0.5 K/uL (2.0-11.5); LYMPHOCYTES % (AUTO) 6.2 % (20.5-51.1); MEAN CORPUSCULAR HEMOGLOBIN 30 pg (27-31); MEAN CORPUSCULAR HGB CONC 35 g/dL (33-37); MEAN CORPUSCULAR VOLUME 87.2 fL (80-94); MONOCYTES # (AUTO) 0.4 K/uL (0.8-1.0); MONOCYTES % (AUTO) 5.7 % (1.7-9.3); NEUTROPHILS # (AUTO) 6.5 K/uL (1.8-7.7); NEUTROPHILS % (AUTO) 87.4 % (42.2-75.2); PLATELET COUNT (AUTO) 178 K/uL (140-450); RED BLOOD CELL COUNT(AUTO) 2.61 MIL/uL (4.20-6.10); RED CELL DISTRIBUTION WIDTH 12.3 % (11.6-13.7); WHITE BLOOD COUNT (AUTO) 7.4 K/uL (4.8-10.8)
--- NOTE | 2018-07-21 13:40 | NUR ---
ADMINISTERED SCHEDULED MEDICATIONS. PT TOLERATED WELL. NO OTHER NEEDS AT THIS TIME. FAMILY AT THE BEDSIDE.
[2018-07-21 13:48] LABS: ANION GAP 11.4 (8-16); CARBON DIOXIDE 22.6 mmol/L (21-32)
[2018-07-21 13:51] LABS: CREATININE 4.4 mg/dL (0.7-1.3)
[2018-07-21 14:14] VITALS: BP 131/78
[2018-07-21] MEDS ORDERED: FERROUS SULFATE 325 MG TABEC PO SCH (15:30)
[2018-07-21] MEDS: TAMSULOSIN 0.4 MG CAP PO SCH (15:57)
[2018-07-21 16:00] VITALS: BP 145/82
[2018-07-21] MEDS ORDERED: ACETAMINOPHEN 325 MG TAB PO SCH ×2 (16:00)
--- NOTE | 2018-07-21 16:00 | NUR ---
ADMINISTERED SCHEDULED MEDICATIONS. PT TOLERATED WELL. NO OTHER NEEDS AT THIS TIME.
--- NOTE | 2018-07-21 17:10 | NUR ---
INSERTED CONDOM CATHETER PER MD ORDER. PT TOLERATED WELL. NO OTHER NEEDS AT THIS TIME.
--- NOTE | 2018-07-21 18:20 | NUR ---
STARTED 1 UNIT OF PRBCS, VS WNL. INSTRUCTED PT ON REACTIONS TO OBSERVE DURING BLOOD TRANSFUSION. PT VERBALIZED UNDERSTANDING. FAMILY AT THE BEDSIDE.
--- NOTE | 2018-07-21 18:43 | NUR ---
NO BLOOD TRANSFUSION REACTION NOTED, VS WNL. PT DENIES ANY DISTRESS. NO OTHER NEEDS AT THIS TIME.
--- NOTE | 2018-07-21 19:25 | NUR ---
ENDORSED PT TO CARYN BARRAGAN FOR CONTINUITY OF CARE. PT STABLE, AWAKE, AND ALERT. FAMILY AT THE BEDSIDE.
--- NOTE | 2018-07-21 19:30 | NUR ---
PATIENT IS AWAKE, ALERT, RESPIRATION EVEN AND UNLABOR ON 2L OF O2 VIA NC. DENIES PAIN AND DISCOMFORT. IV IS PATENT AND INTACT. CONDOM CATHETER IS NOTED. SKIN IS WARM AND DRY. PLAN OF CARE WAS DISCUSS. BED IS IN LOW POSITION. CALL LIGHT WITHIN REACH.
[2018-07-21 20:00] VITALS: BP 137/76
--- NOTE | 2018-07-21 21:30 | NUR ---
DR. CUTLER PERFORMED DALTON CATH PLACEMENT AT BEDSIDE. PATIENT TOLERATED WELL. WILL CONTINUE TO MONITOR
--- NOTE | 2018-07-21 21:35 | NUR ---
PATIENT IS AWAKE, ALERT, RESPIRATION EVEN AND UNLABORED ON 2L OF O2. DENIES PAIN AND DISCOMFORT. VITAL SIGNS WITHIN THE NORMAL RANGE. BLOOD TRANSFUSION ENDED NO ADVERSE REACTION NOTED. BED IS IN LOW POSITION. CALL LIGHT WITHIN REACH.
--- NOTE | 2018-07-21 21:55 | NUR ---
HEPARIN GIVEN BY DR CUTLER FOR PROCEDURE JATINDER CATH INSERTION.
--- NOTE | 2018-07-21 22:00 | NUR ---
MEDS WERE GIVEN PER ORDER. PATIENT IS STABLE AT THIS MOMENT. CALL LIGHT WITHIN REACH.
[2018-07-22] VITALS: BP 141/60
--- NOTE | 2018-07-22 | NUR ---
PATIENT IS SLEEPING COMFORTABLY RESPIRATION EVEN AND UNLABORED ON 2L OF O2. NO DISTRESS NOTED. VITAL SIGNS WITHIN THE NORMAL RANGE. CALL LIGHT WITHIN REACH.
[2018-07-22 00:31] LABS: ANION GAP 8.7 (8-16); CARBON DIOXIDE 23.4 mmol/L (21-32); POTASSIUM 4.1 mmol/L (3.5-5.1)
[2018-07-22 00:56] LABS: CREATININE 4.5 mg/dL (0.7-1.3)
[2018-07-22 04:00] VITALS: BP 149/81
[2018-07-22] MEDS: cloNIDine 0.1 MG TAB PO SCH ×3 (04:23→20:23)
--- NOTE | 2018-07-22 04:23 | NUR ---
MEDS WERE GIVEN PER ORDER. VITAL SIGNS WITHIN THE NORMAL RANGE. NO DISTRESS NOTED. CALL LIGHT WITHIN REACH.
[2018-07-22 06:25] LABS: BASOPHILS % (AUTO) 0.4 % (0.0-2.0); EOSINOPHILS # (AUTO) 0.3 K/uL (0-0.4); HEMATOCRIT 23.6 % (36-52); HEMOGLOBIN 8.2 g/dL (12.0-18.0); LYMPHOCYTES # (AUTO) 0.7 K/uL (2.0-11.5); LYMPHOCYTES % (AUTO) 7.8 % (20.5-51.1); MEAN CORPUSCULAR HEMOGLOBIN 31 pg (27-31); MEAN CORPUSCULAR HGB CONC 35 g/dL (33-37); MEAN CORPUSCULAR VOLUME 87.5 fL (80-94); MONOCYTES # (AUTO) 0.7 K/uL (0.8-1.0); MONOCYTES % (AUTO) 7.5 % (1.7-9.3); NEUTROPHILS # (AUTO) 7.5 K/uL (1.8-7.7); NEUTROPHILS % (AUTO) 81.3 % (42.2-75.2); PLATELET COUNT (AUTO) 147 K/uL (140-450); RED CELL DISTRIBUTION WIDTH 12.1 % (11.6-13.7); WHITE BLOOD COUNT (AUTO) 9.2 K/uL (4.8-10.8)
[2018-07-22 06:32] LABS: ANION GAP 10.6 (8-16); CARBON DIOXIDE 21.9 mmol/L (21-32); POTASSIUM 4.5 mmol/L (3.5-5.1)
--- NOTE | 2018-07-22 07:10 | NUR ---
RECEIVED PT REPORT AT BEDSIDE FROM MANAGER PRACTICE NURSE. PT IS ASLEEP AT THIS TIME, NO S/S OF ACUTE DISTRESS, SOB, OE C/C OF PAIN NOTED. PT IS NOTED TO BE ON 2 L O2 NC. SKIN IS INTACT. LE'S ARE NOT EDEMATOUS AT THIS TIME. DALTON CATH NOTED ON THE R SIDE NECK. IV SITE NOTED ON THE R FA 20 G, SALINE LOCK. PT IS ON 800 ML/DAY FLUID RESTRICTION. PT IS AWARE ABOUT PROVIDING STOOL SAMPLE FOR OCCULT BLOOD TEST. FALL PRECAUTIONS IN PLACE, CALL LIGHT WITHIN REACH. WILL CONT TO MONITOR PT.
[2018-07-22 07:16] LABS: CREATININE 4.5 mg/dL (0.7-1.3)
[2018-07-22] MEDS: LORazepam 1 MG TAB PO PRN ×2 (07:18→15:25)
--- NOTE | 2018-07-22 07:18 | NUR ---
PT STATED FEELING ANXIOUS AND RESTLESS, ATIVAN ORDERED ADMINISTER, PT TOLERATED WELL, NO DISTRESS NOTED, CALL LIGHT WITHIN REACH, WILL CONTINUE TO MONITOR.
--- NOTE | 2018-07-22 07:33 | NUR ---
ENDORSED PATIENT TO AM NURSE FOR CONTINUITY OF CARE. PATIENT IS STABLE AT THIS TIME
[2018-07-22 08:00] VITALS: BP 146/82
[2018-07-22 08:25] LABS: FERRITIN 408 ng/mL (30-400); FOLIC ACID > 20.00 ng/mL (>3.0)
[2018-07-22] MEDS: ALBUTEROL SULFATE/IPRATROPIU 3 ML SOL IH SCH ×2 (08:38→21:04)
[2018-07-22 09:10] LABS: HEPATITIS A ANTIBODY IGM Negative (Negative); HEPATITIS B CORE AB TOTAL Negative (Negative); HEPATITIS B SURFACE ANTIBODY Non Reactive (.); HEPATITIS B SURFACE ANTIGEN Negative (Negative)
[2018-07-22 09:10] LABS: ANTI DOUBLE STRANDED DNA AB 7 IU/mL (0-9)
[2018-07-22] MEDS: FERROUS SULFATE 325 MG TABEC PO SCH (09:23)
[2018-07-22] MEDS: amLODIPine 5 MG TAB PO SCH (09:24)
[2018-07-22] MEDS: VIT-B COMP/VIT-C/FOLIC ACID 1 TAB PO SCH (09:24)
--- NOTE | 2018-07-22 09:46 | NUR ---
DIALYSIS NURSE SANTOSH RECEIVED UPDATED DIALYSIS ORDER FROM DR MENARD FOR TODAY AND TOMORROW. WILL FOLLOW UP.
[2018-07-22 10:09] LABS: TRANSFERRIN 129 mg/dL (200-370)
[2018-07-22 10:09] LABS: ANTI-NUCLEAR ANTIBODY,DIRECT Positive (Negative)
--- NOTE | 2018-07-22 11:06 | NUR ---
PT RECEIVING DIALYSIS AT THIS TIME.
[2018-07-22 11:38] VITALS: BP 148/81
--- NOTE | 2018-07-22 12:48 | NUR ---
5000 UNITS OF HEPARIN FLUSHED THROUGH EACH DALTON CATH PORT.
[2018-07-22 13:08] LABS: CARBON DIOXIDE 29.7 mmol/L (21-32); CREATININE 3.2 mg/dL (0.7-1.3); POTASSIUM 3.7 mmol/L (3.5-5.1)
[2018-07-22 16:00] VITALS: BP 158/85
[2018-07-22] MEDS: FUROSEMIDE 40 MG TAB PO SCH (16:26)
[2018-07-22] MEDS: TAMSULOSIN 0.4 MG CAP PO SCH (16:27)
--- NOTE | 2018-07-22 16:38 | NUR ---
PT'S TEMP IS NOTED TO BE 100.2. COOLING MEASURES IN PLACE. COOLING THE ROOM DOWN, PLACED ONE SHEET OVER THE PATIENT FOR COMFORT. WILL NOTIFY MD AND CONTINUE TO MONITOR PT.
--- NOTE | 2018-07-22 17:18 | NUR ---
TEMP IS 100.3 AT THIS TIME. ADMINISTERED PRN TYLENOL 650 MG FOR FEVER Addendum: 07/22/18 at 1737 by Sheyla Henley RN MD IS AWARE OF PT'S ELEVATED TEMP.
--- NOTE | 2018-07-22 18:26 | NUR ---
RECHECKED PT'S TEMP, 99.5 AT THIS TIME (ORAL TEMP)
[2018-07-22 18:56] LABS: ANION GAP 3.2 (8-16); CARBON DIOXIDE 30.8 mmol/L (21-32); CREATININE 3.5 mg/dL (0.7-1.3)
--- NOTE | 2018-07-22 19:15 | NUR ---
PT ENDORSED TO PAN RECLAIM PROCESSOR IN STABLE CONDITION.
--- NOTE | 2018-07-22 19:40 | NUR ---
PATIENT IS AWAKE, ALERT, RESPIRATION EVEN AND UNLABORED ON O2 2L VIA NC. NO DISTRESS NOTED. DENIES PAIN. SKIN IS WARM AND DRY. FAMILY IS AT BEDSIDE. ON CONTINUE FLUID RESTRICTION 800ML/DAY PATIENT IS AWARE. PLAN OF CARE WAS DISCUSSED. BED IS IN LOW POSITION. CALL LIGHT WITHIN REACH. WILL CONTINUE TO MONITOR.
[2018-07-22 20:00] VITALS: BP 158/88
--- NOTE | 2018-07-22 20:25 | NUR ---
PATIENT IS AWAKE, ALERT, RESPIRATION EVEN AND UNLABORED ON O2 2L VIA NC. DENIES PAIN. VITAL SIGNS WITHIN THE NORMAL RANGE. MEDS WERE GIVEN PER ORDER. FAMILY AT BEDSIDE. CALL LIGHT WITHIN REACH. WILL CONTINUE TO MONITOR.
[2018-07-22] MEDS: DOCUSATE SODIUM 100 MG GELCAP PO PRN (20:27)
[2018-07-22] MEDS ORDERED: PNEUMOCOCCAL VACCINE 23 MCG/0.5 ML VIAL IMVAC SCH (22:45)
[2018-07-22] MEDS ORDERED: INFLUENZA VIRUS VACCINE QUAD 0.5 ML SYR IMVAC PRN (22:45)
[2018-07-23] VITALS: BP 148/87
--- NOTE | 2018-07-23 | NUR ---
PATIENT IS SLEEPING COMFORTABLY. NO DISTRESS NOTED. VITAL SINGS STABLE. CALL LIGHT WITHIN REACH. WILL CONTINUE TO MONITOR.
[2018-07-23 04:00] VITALS: BP 155/85
[2018-07-23] MEDS: cloNIDine 0.1 MG TAB PO SCH ×3 (04:58→21:16)
[2018-07-23] MEDS: ALBUTEROL SULFATE/IPRATROPIU 3 ML SOL IH SCH ×2 (07:03→18:55)
--- NOTE | 2018-07-23 07:31 | NUR ---
ENDORSED PATIENT TO [facility] NURSE FOR CONTINUITY OF CARE. PATIENT IS STABLE IS AT THIS TIME.
--- NOTE | 2018-07-23 07:33 | NUR ---
RECEIVED BEDSIDE REPORT FROM PRESIDENT COMMERCIAL BANK NURSE. PATIENT IS AOX4. DENIES OF PAIN. C/O DRY MOUTH. ICE CHIPS PROVIDED. NO SIGNS OF DISTRESS WITH 2L/MIN VIA NC. IV ON R FA 20G SALINE LOCK, NO INFUSING AT THIS TIME. IV SITE DRY AND CLEAN. PATIENT IS ABLE TO AMBULATE. URANAL PROVIDED. SKIN INTACT, DRY AND CLEAN. PATIENT IS ON RENAL DIET WITH 800ML/DAY FLUID RESTRICTION. RESPIRATION IS EVEN AND UNLABORED, CLEAR ON AUSCULTATION. REVIEW PLAN OF CARE WITH PATIENT, PATIENT VERBALIZED UNDERSTANDING. WILL CONTINUE TO MONITOR.
[2018-07-23 07:37] LABS: BASOPHILS # (AUTO) 0.1 K/uL (0.00-0.22); BASOPHILS % (AUTO) 0.6 % (0.0-2.0); EOSINOPHILS # (AUTO) 0.5 K/uL (0-0.4); LYMPHOCYTES # (AUTO) 0.8 K/uL (2.0-11.5); LYMPHOCYTES % (AUTO) 7.1 % (20.5-51.1); MEAN CORPUSCULAR HEMOGLOBIN 30 pg (27-31); MEAN CORPUSCULAR HGB CONC 35 g/dL (33-37); MEAN CORPUSCULAR VOLUME 87.2 fL (80-94); MONOCYTES # (AUTO) 0.8 K/uL (0.8-1.0); MONOCYTES % (AUTO) 7.6 % (1.7-9.3); NEUTROPHILS # (AUTO) 8.6 K/uL (1.8-7.7); NEUTROPHILS % (AUTO) 79.7 % (42.2-75.2); PLATELET COUNT (AUTO) 179 K/uL (140-450); RED BLOOD CELL COUNT(AUTO) 2.64 MIL/uL (4.20-6.10); RED CELL DISTRIBUTION WIDTH 12.1 % (11.6-13.7); WHITE BLOOD COUNT (AUTO) 10.7 K/uL (4.8-10.8)
[2018-07-23 07:51] LABS: ALBUMIN 2.6 g/dL (3.4-5.0); ANION GAP 7.9 (8-16); CARBON DIOXIDE 29.2 mmol/L (21-32); CREATININE 3.8 mg/dL (0.7-1.3); MAGNESIUM 1.8 mg/dL (1.8-2.4); PHOSPHORUS 4.2 mg/dL (2.5-4.9); POTASSIUM 4.1 mmol/L (3.5-5.1); TOTAL BILIRUBIN 0.5 mg/dL (0.0-1.0)
[2018-07-23 08:00] VITALS: BP 153/82
--- NOTE | 2018-07-23 08:11 | NUR ---
DIALYSIS MILA POLLACK RN NOTIFIED THAT DIALYSIS ORDER HAS BEEN PLACED FOR PATIENT.
--- NOTE | 2018-07-23 08:12 | NUR ---
DR RAYO AT BEDSIDE AND TALKED TO THE PATIENT.
[2018-07-23] MEDS: FERROUS SULFATE 325 MG TABEC PO SCH (08:38)
[2018-07-23] MEDS: VIT-B COMP/VIT-C/FOLIC ACID 1 TAB PO SCH (08:39)
[2018-07-23] MEDS: SPIRONOLACTONE 25 MG TAB PO SCH ×2 (08:42→16:00)
[2018-07-23] MEDS: FUROSEMIDE 40 MG TAB PO SCH ×2 (08:43→16:00)
[2018-07-23] MEDS: amLODIPine 5 MG TAB PO SCH ×2 (08:44→15:59)
[2018-07-23] MEDS: METOLAZONE 5 MG TAB PO SCH ×2 (08:44→16:00)
--- NOTE | 2018-07-23 08:47 | NUR ---
ADMINISTERED MEDS PER MD ORDER. HELD BP MEDS AND SPIRONLACTONE, LASIX, AND METOLOZONE DUE TO DIALYSIS. PATIENT TOLERATED MEDS WELL. PATIENT IS EATING HIS BREAKFAST AT THIS TIME.
--- NOTE | 2018-07-23 10:55 | NUR ---
DIALYSIS NURSE AT BEDSIDE.
[2018-07-23 12:00] VITALS: BP 168/86
--- NOTE | 2018-07-23 12:20 | NUR ---
PATIENT IS DOING DIALYSIS.
[2018-07-23] MEDS: LORazepam 1 MG TAB PO PRN (15:59)
[2018-07-23 16:00] VITALS: BP 164/86
[2018-07-23] MEDS: TAMSULOSIN 0.4 MG CAP PO SCH (16:01)
--- NOTE | 2018-07-23 16:07 | NUR ---
PER DR MONSALVE, OK TO GIVE AM BP MEDS NOW FOR CONTINUING INCREASED BP. MEDS GIVEN NOW, ATIVAN ALSO GIVEN FOR C/O ANXIETY, PT SITTING QUIETLY TALKING WITH SON, WILL CONTINUE TO MONIOTOR.
--- NOTE | 2018-07-23 18:15 | NUR ---
PATIENT IS SITTING UP ON BED EATING DINNER AND FAMILY AT BEDSIDE. NO SIGNS OF DISTRESS NOTED. WILL CONTINUE TO MONITOR.
--- NOTE | 2018-07-23 19:10 | NUR ---
ENDORSED PATIENT TO PROMOTIONS ASSISTANT SALES MARKETING NURSE FOR CONTINUITY OF CARE. PATIENT IS IN STABLE CONDITION. SON IS AT BEDSIDE AT THIS TIME.
--- NOTE | 2018-07-23 19:11 | NUR ---
RECEIVED REPORT FROM SHIFT RN. PT IS A&OX4. RESPIRATIONS ARE EQUAL AND UNLABORED. DENIES ANY PAIN. IV ON R FA 20G. R DALTON CATH HM TODAY 1000ML WAS REMOVED PER NURSE. PLAN OF CARE WAS DISCUSSED WITH PT AND SON. ALL QUESTIONS ANSWERED. SAFETY MEASURES IN PLACE. FLUID RESTRICTION OF 800ML/DAY. CALL LIGHT WITHIN REACH. WILL CONTINUE TO MONITOR.
--- NOTE | 2018-07-23 21:16 | NUR ---
DUE MEDICATIONS ADMINISTERED. WILL CONTINUE TO MONITOR.
[2018-07-23 23:48] VITALS: BP 157/94
--- NOTE | 2018-07-24 | NUR ---
VS WITHIN NORMAL LIMITS. ALL NEEDS MET AT THIS TIME. WILL CONTINUE TO MONITOR
--- NOTE | 2018-07-24 02:16 | NUR ---
PT SLEEPING. RESPIRATIONS ARE EQUAL AND UNLABORED. CALL LIGHT WITHIN REACH.
[2018-07-24] MEDS: cloNIDine 0.1 MG TAB PO SCH ×3 (04:13→20:04)
--- NOTE | 2018-07-24 04:13 | NUR ---
DUE MEDICATION ADMINISTERED. PT TOLERATED WELL. ALL NEEDS MET AT THIS TIME. CALL LIGHT WITHIN REACH
[2018-07-24] MEDS: ALBUTEROL SULFATE/IPRATROPIU 3 ML SOL IH SCH ×2 (06:48→18:20)
--- NOTE | 2018-07-24 06:48 | NUR ---
PT REFUSED BREATHING TX PT STATED HE WANTED TO SLEEP NO SIGNS OF DISTRESS AT THIS TIME TOLD PT TO CALL WHEN HE WANTED A BREATHING TX
[2018-07-24 07:16] LABS: ANION GAP 7.5 (8-16); CARBON DIOXIDE 30.5 mmol/L (21-32); CREATININE 3.4 mg/dL (0.7-1.3)
--- NOTE | 2018-07-24 07:20 | NUR ---
ENDORSED TO DAY SHIFT RN. PT IS IN STABLE CONDITION.
[2018-07-24 07:28] LABS: MAGNESIUM 1.7 mg/dL (1.8-2.4); PHOSPHORUS 3.5 mg/dL (2.5-4.9)
[2018-07-24 07:48] LABS: BASOPHILS # (AUTO) 0.1 K/uL (0.00-0.22); BASOPHILS % (AUTO) 0.7 % (0.0-2.0); EOSINOPHILS # (AUTO) 0.5 K/uL (0-0.4); EOSINOPHILS % (AUTO) 5.5 % (0.0-4.0); HEMATOCRIT 24.7 % (36-52); HEMOGLOBIN 8.6 g/dL (12.0-18.0); LYMPHOCYTES # (AUTO) 0.7 K/uL (2.0-11.5); LYMPHOCYTES % (AUTO) 8.2 % (20.5-51.1); MEAN CORPUSCULAR HEMOGLOBIN 31 pg (27-31); MEAN CORPUSCULAR HGB CONC 35 g/dL (33-37); MONOCYTES # (AUTO) 0.8 K/uL (0.8-1.0); MONOCYTES % (AUTO) 8.4 % (1.7-9.3); NEUTROPHILS % (AUTO) 77.2 % (42.2-75.2); PLATELET COUNT (AUTO) 163 K/uL (140-450)
[2018-07-24 08:00] VITALS: BP 154/89
[2018-07-24] MEDS: ONDANSETRON 4 MG/2 ML VIAL IM/IVP PRN (08:14)
[2018-07-24] MEDS: METOLAZONE 5 MG TAB PO SCH (08:18)
[2018-07-24] MEDS: FUROSEMIDE 40 MG TAB PO SCH ×2 (08:18→16:44)
[2018-07-24] MEDS: VIT-B COMP/VIT-C/FOLIC ACID 1 TAB PO SCH (08:19)
[2018-07-24] MEDS: FERROUS SULFATE 325 MG TABEC PO SCH (08:19)
[2018-07-24] MEDS: SPIRONOLACTONE 25 MG TAB PO SCH (08:19)
[2018-07-24] MEDS: amLODIPine 5 MG TAB PO SCH (08:19)
[2018-07-24] MEDS: DOCUSATE SODIUM 100 MG GELCAP PO PRN (08:20)
--- NOTE | 2018-07-24 09:45 | NUR ---
PATIENT ASLEEP IN BED. NO S/S OF DISTRESS NOTED
[2018-07-24] MEDS ORDERED: MAGNESIUM OXIDE 400 MG TAB PO SCH (10:30)
--- NOTE | 2018-07-24 11:15 | NUR ---
PATIENT AMBULATED AROUND THE UNIT. NO S/S OF DISTRESS NOTED
[2018-07-24] MEDS ORDERED: PANTOPRAZOLE 40 MG TABEC PO SCH (12:30)
[2018-07-24 16:00] VITALS: BP 145/81
[2018-07-24] MEDS: TAMSULOSIN 0.4 MG CAP PO SCH (16:45)
[2018-07-24] MEDS: NYSTATIN POW 100 MU/GM 15 GM BTL TP SCH ×2 (16:45→20:04)
[2018-07-24] MEDS ORDERED: MINERAL OIL 135 ML ENEM RC PRN (16:55)
--- NOTE | 2018-07-24 17:00 | NUR ---
MADE DR MONSALVE AWARE OF PATIENT'S C/O FEELING FULL. ORDERS RECEIVED
[2018-07-24] MEDS ORDERED: BISACODYL 10 MG SUPP RC ONE (18:19)
[2018-07-24] MEDS ORDERED: BISACODYL 10 MG SUPP RC SCH (18:30)
--- NOTE | 2018-07-24 19:20 | NUR ---
PATIENT REPORT GIVEN AT BEDSIDE. PATIENT ENDORSED IN STABLE CONDITION. PATIENT'S SON AT BEDSIDE
--- NOTE | 2018-07-24 19:21 | NUR ---
RECEIVED REPORT FROM DAY SHIFT RN. PT IS A&OX4. RESPIRATIONS ARE EQUAL AND UNLABORED. DENIES ANY PAIN. IV ON R FA 20G SALINE LOCK.. R DALTON CATH HD Y ON 07/23 1000ML WAS REMOVED PER NURSE. PLAN OF CARE WAS DISCUSSED WITH PT AND SON. ALL QUESTIONS ANSWERED. SAFETY MEASURES IN PLACE. FLUID RESTRICTION OF 800ML/DAY. PT HAS COMPLAIN OF CONSTIPATION. WILL F/U WITH MINERAL ENEMA. CALL LIGHT WITHIN REACH. WILL CONTINUE TO MONITOR.
[2018-07-24] MEDS: PANTOPRAZOLE 40 MG TABEC PO SCH (20:03)
--- NOTE | 2018-07-24 20:06 | NUR ---
DUE MEDICATIONS GIVEN. ENEMA ADMINISTERED. PT TOLERATED WELL. INFORMED PT OF NEED FOR STOOL SAMPLE. HE VERBALIZED UNDERSTANDING. CALL LIGHT WITHIN REACH. ALL SAFETY MEASURES ARE IN PLACE. WILL CONTINUE TO MONITOR.
[2018-07-24] MEDS ORDERED: NYSTATIN POW 100 MU/GM 15 GM BTL TP SCH (21:00)
--- NOTE | 2018-07-24 22:48 | NUR ---
PT SLEEPING. NO S/S OF DISTRESS. HE HAD ONE BM: SMALL BROWN STOOL EARLIER. WILL CONTINUE TO MONITOR.
[2018-07-24 23:35] VITALS: BP 138/80
--- NOTE | 2018-07-24 23:36 | NUR ---
VITAL SIGNS ARE WITHIN NORMAL LIMITS. ALL NEEDS MET AT THIS TIME. WILL CONTINUE TO MONITOR.
[2018-07-25] MEDS: LORazepam 1 MG TAB PO PRN (00:29)
--- NOTE | 2018-07-25 00:29 | NUR ---
PT WITH SMALL HARD BOWEL MOVEMENT. STOOL OCCULT SENT TO LAB. ATIVAN ADMINISTERED FOR ANXIETY. CALL LIGHT WITHIN REACH. WILL CONTINUE TO MONITOR.
--- NOTE | 2018-07-25 02:00 | NUR ---
PT SLEEPING. NO S/S OF DISTRESS. CALL LIGHT WITHIN REACH.
--- NOTE | 2018-07-25 03:39 | NUR ---
1900 PT REFUSED HHNTX AT THIS TIME. PT HAS CLEAR BREATH SOUNDS. NO SOB NOTED
[2018-07-25] MEDS: cloNIDine 0.1 MG TAB PO SCH ×3 (04:16→21:16)
--- NOTE | 2018-07-25 04:16 | NUR ---
DUE MEDICATIONS GIVEN. PT TOLERATED WELL. WILL CONTINUE TO MONITOR.
[2018-07-25] MEDS: ALBUTEROL SULFATE/IPRATROPIU 3 ML SOL IH SCH ×2 (06:55→19:30)
--- NOTE | 2018-07-25 06:55 | NUR ---
PT REFUSED BREATHING TX NO SIGNS OF DISTRESS NOTED TOLD PT IF HE WANTED TX TO CALL FOR RT
--- NOTE | 2018-07-25 07:13 | NUR ---
ENDORSED TO DAY SHIFT RN. PT IS IN STABLE CONDITION. CALL LIGHT WITHIN REACH.
[2018-07-25 07:15] LABS: BASOPHILS # (AUTO) 0.1 K/uL (0.00-0.22); BASOPHILS % (AUTO) 0.7 % (0.0-2.0); EOSINOPHILS # (AUTO) 0.6 K/uL (0-0.4); EOSINOPHILS % (AUTO) 8.7 % (0.0-4.0); HEMATOCRIT 23.6 % (36-52); HEMOGLOBIN 8.2 g/dL (12.0-18.0); LYMPHOCYTES # (AUTO) 0.7 K/uL (2.0-11.5); LYMPHOCYTES % (AUTO) 9.6 % (20.5-51.1); MEAN CORPUSCULAR HEMOGLOBIN 30 pg (27-31); MEAN CORPUSCULAR HGB CONC 35 g/dL (33-37); MEAN CORPUSCULAR VOLUME 87.6 fL (80-94); MONOCYTES # (AUTO) 0.7 K/uL (0.8-1.0); NEUTROPHILS # (AUTO) 5.4 K/uL (1.8-7.7); PLATELET COUNT (AUTO) 158 K/uL (140-450); RED CELL DISTRIBUTION WIDTH 11.9 % (11.6-13.7); WHITE BLOOD COUNT (AUTO) 7.5 K/uL (4.8-10.8)
[2018-07-25 07:27] LABS: ANION GAP 11.2 (8-16); CARBON DIOXIDE 28.8 mmol/L (21-32)
[2018-07-25 07:28] LABS: MAGNESIUM 1.7 mg/dL (1.8-2.4); PHOSPHORUS 3.9 mg/dL (2.5-4.9)
[2018-07-25 07:36] LABS: CREATININE 4.4 mg/dL (0.7-1.3)
[2018-07-25 08:00] VITALS: BP 152/80
--- NOTE | 2018-07-25 08:14 | NUR ---
SPOKE WITH DR MENARD. PER DR MENARD, PATIENT NEEDS TO HAVE DIALYSIS TODAY. DR BOB PUT IN ORDERS. DR MENARD WANTED TO KNOW IF DR CUTLER WILL BE PLACING TUNNELLED CATH SINCE PATIENT IS STILL IN THE HOSPITAL. ATTENDING NOTIFIED.
--- NOTE | 2018-07-25 08:27 | NUR ---
SPOKE WITH ALAN FROM [facility]. TEL [phone]. PER ALAN, PATIENT'S DOCUMENTS NEED TO BE SENT VIA FAX TO START ADMISSION. FAX NUMBER [phone]. JACKSPOOLER ROXANNA ESTEVEZ
--- NOTE | 2018-07-25 08:28 | NUR ---
SPOKE WITH HD NURSE, MILA POLLACK AND INFORMED HER ABOUT THE DIALYSIS ORDERED FOR THE PATIENT
[2018-07-25] MEDS: METOLAZONE 5 MG TAB PO SCH (09:00)
[2018-07-25] MEDS: amLODIPine 5 MG TAB PO SCH (09:00)
[2018-07-25] MEDS: NYSTATIN POW 100 MU/GM 15 GM BTL TP SCH ×2 (09:00→21:00)
[2018-07-25] MEDS: FUROSEMIDE 40 MG TAB PO SCH ×2 (09:00→17:00)
[2018-07-25] MEDS: SPIRONOLACTONE 25 MG TAB PO SCH (09:00)
[2018-07-25] MEDS ORDERED: MAGNESIUM OXIDE 400 MG TAB PO SCH (09:52)
[2018-07-25] MEDS ORDERED: ceFAZolin 1,000 MG VIAL ONE (10:40)
[2018-07-25] MEDS ORDERED: LIDOCAINE/EPI 1% 1:100000 20 ML VIAL INJ ONE (10:40)
[2018-07-25] MEDS ORDERED: BUPIVACAINE-MPF 0.5% 30 ML VIAL INJ ONE (10:41)
[2018-07-25] MEDS ORDERED: BUPIVACAINE-MPF/EPI 0.5% 30 ML VIAL INJ ONE (10:45)
[2018-07-25] MEDS ORDERED: LIDOCAINE 1% 500 MG/50 ML VIAL ONE (10:45)
[2018-07-25] MEDS ORDERED: MIDAZOLAM 2 MG/2 ML VIAL ONE (10:46)
[2018-07-25] MEDS ORDERED: fentaNYL 0.05 MG/ML VIAL ONE (10:47)
[2018-07-25] MEDS ORDERED: NACL 0.9% 1,000 ML IV SCH (11:06)
[2018-07-25] MEDS ORDERED: ONDANSETRON 4 MG/2 ML VIAL IVP PRN (11:10)
[2018-07-25] MEDS ORDERED: MORPHINE SULFATE 2 MG/ML SYR IVP PRN (11:45)
[2018-07-25] MEDS ORDERED: HYDROmorphone 1 MG/ML AMP IVP PRN (11:45)
[2018-07-25] MEDS ORDERED: HYDROcodone/APAP 5/325 MG 1 TAB TAB PO PRN (11:45)
[2018-07-25] MEDS ORDERED: MORPHINE SULFATE 4 MG/ML SYR IV PRN (11:45)
[2018-07-25] MEDS ORDERED: ONDANSETRON 4 MG/2 ML VIAL IV PRN (11:45)
--- NOTE | 2018-07-25 12:10 | NUR ---
PT BACK IN THE UNIT S/P TUNNELED CATHETER PLACEMENT. CATHETER NOTED ON THE RIGHT UPPER CHEST. DRESSING CLEAN DRY AND INTACT. NO S/S OF DISTRESS. TEMP 97.4 BP 150/82 HR 80 O2 SAT 93% ON ROOM AIR
--- NOTE | 2018-07-25 12:33 | NUR ---
SPOKE WITH OMER FROM [facility], . SHE ASKED ME TO FAX THE INFORMATION TO HER, AND TO MARYSE TANGIER [phone], WHICH I DID.
[2018-07-25] MEDS: FERROUS SULFATE 325 MG TABEC PO SCH (12:56)
[2018-07-25] MEDS: VIT-B COMP/VIT-C/FOLIC ACID 1 TAB PO SCH (12:56)
[2018-07-25] MEDS: PANTOPRAZOLE 40 MG TABEC PO SCH ×2 (12:57→21:15)
[2018-07-25] MEDS: SODIUM PHOS / POTASSIUM PHOS 1 PKT PDR PO SCH ×2 (12:57→21:16)
[2018-07-25] MEDS: DOCUSATE SODIUM 100 MG GELCAP PO PRN (12:57)
--- NOTE | 2018-07-25 14:11 | NUR ---
07/25/18 RD INITIAL ASSESSMENT COMPLETED PLEASE REFER TO NUTRITION ASSESSMENT UNDER CARE ACTIVITY FOR ESTIMATED NUTRITIONAL NEEDS. 1. CONTINUE RENAL DIET 2. CONTINUE NEPRO WITH MEALS 3. RD FOLLOWED UP ON RENAL DIET EDUCATION 4. RD TO FOLLOW-UP 5-7 DAYS, LOW RISK WARD BRITO, RD
[2018-07-25] MEDS: TAMSULOSIN 0.4 MG CAP PO SCH (16:30)
--- NOTE | 2018-07-25 19:30 | NUR ---
RECEIVED BEDSIDE REPORT FROM DAY SHIFT RN. PATIENT IN BED, HD NURSE AT BEDSIDE, PATIENT RECEIVING HD. FAMILY AT BEDSIDE, QUESTIONS ANSWERED BP 186/92. WILL GIVE CLONIDINE. NYSTATIN POWDER NOT AVAILABLE. EXPLAINED TO PATIENT, PATIENT STATED OKAY, CHARGE NURSE ANN ESTEVEZ. ALL DUE MEDICATIONS GIVEN BY DAY SHIFT NURSE EXCEPT BP MEDS DUE TO HD. PATIENT C/O HAVING DIFFICULTY HAVING BM, EXPLAINED COLACE WAS ALREADY GIVEN AND CAN HAVE AGAIN TOMORROW IF WANTED. OFFERED PRUNE JUICE PATIENT STATED OKAY. WILL CONTINUE TO MONITOR.
--- NOTE | 2018-07-25 21:15 | NUR ---
1.5 OUTPUT FROM HD, TUNNELED CATH DRESSING CHANGED. RIGHT FA 20G IV DRESSING CLEAN.
--- NOTE | 2018-07-25 21:30 | NUR ---
DUE MEDICATIONS GIVEN PATIENT TOLERATED WELL. GAVE PRUNE JUICE.
[2018-07-25 23:59] VITALS: BP 150/88
--- NOTE | 2018-07-26 | NUR ---
V/S TAKEN BP 150/88 HR 69. PT AMBULATED TO RESTROOM, STEADY GAIT.
--- NOTE | 2018-07-26 01:45 | NUR ---
PATIENT SLEEPING IN BED, NO SIGNS OF DISTRESS, CALL LIGHT WITHIN REACH, WILL CONTINUE TO MONITOR.
[2018-07-26] MEDS: LORazepam 1 MG TAB PO PRN (03:04)
--- NOTE | 2018-07-26 03:04 | NUR ---
PATIENT C/O ANXIETY, MEDICATED WITH ATIVAN. V/S STABLE.
--- NOTE | 2018-07-26 04:20 | NUR ---
PATIENT SLEEPING IN BED, NO SIGNS OF ANXIETY, CALL LIGHT WITHIN REACH, WILL CONTINUE TO MONITOR.
--- NOTE | 2018-07-26 04:49 | NUR ---
SPOKE WITH DR MONSALVE REGARDING DIET ORDER, DR STATED SHE WILL ASK THE DAY SHIFT TEAM TO PUT IN ORDER. DR AWARE THAT PATIENT RECEIVED A RENAL TRY FOR DINNER.
--- NOTE | 2018-07-26 05:30 | NUR ---
BP 155/95 HR 77. DUE CLONIDINE GIVEN WILL REASSESS BP.
[2018-07-26] MEDS: cloNIDine 0.1 MG TAB PO SCH ×3 (05:34→21:32)
[2018-07-26 07:01] LABS: BASOPHILS % (AUTO) 0.4 % (0.0-2.0); EOSINOPHILS # (AUTO) 0.4 K/uL (0-0.4); EOSINOPHILS % (AUTO) 4.5 % (0.0-4.0); HEMOGLOBIN 8.3 g/dL (12.0-18.0); LYMPHOCYTES # (AUTO) 0.6 K/uL (2.0-11.5); LYMPHOCYTES % (AUTO) 6.7 % (20.5-51.1); MEAN CORPUSCULAR HEMOGLOBIN 30 pg (27-31); MEAN CORPUSCULAR HGB CONC 35 g/dL (33-37); MEAN CORPUSCULAR VOLUME 87.4 fL (80-94); MONOCYTES # (AUTO) 0.6 K/uL (0.8-1.0); MONOCYTES % (AUTO) 7.1 % (1.7-9.3); NEUTROPHILS # (AUTO) 6.8 K/uL (1.8-7.7); NEUTROPHILS % (AUTO) 81.3 % (42.2-75.2); PLATELET COUNT (AUTO) 162 K/uL (140-450); RED BLOOD CELL COUNT(AUTO) 2.74 MIL/uL (4.20-6.10); RED CELL DISTRIBUTION WIDTH 11.7 % (11.6-13.7); WHITE BLOOD COUNT (AUTO) 8.3 K/uL (4.8-10.8)
[2018-07-26] MEDS: ALBUTEROL SULFATE/IPRATROPIU 3 ML SOL IH SCH ×2 (07:22→19:30)
[2018-07-26 07:23] LABS: ALBUMIN 2.3 g/dL (3.4-5.0); CREATININE 3.3 mg/dL (0.7-1.3); MAGNESIUM 1.7 mg/dL (1.8-2.4); PHOSPHORUS 2.7 mg/dL (2.5-4.9); TOTAL BILIRUBIN 0.4 mg/dL (0.0-1.0)
--- NOTE | 2018-07-26 07:26 | NUR ---
ENDORSED PATIENT TO DAY SHIFT NURSE, PATIENT STABLE.
--- NOTE | 2018-07-26 07:30 | NUR ---
RECEIVED REPORT FROM NURSE ANGUIANO. PT AWAKE ALERT ORIENTED, ABLE TO COMMUNICATE NEEDS. PT DENIES SOB, PAIN, N/V , NO S/S OF ACUTE DISTRESS NOTED. CALL LIGHT AND SAFETY MEASURES IN PLACE, WILL CONTINUE TO MONITOR.
[2018-07-26 08:00] VITALS: BP 161/86
[2018-07-26] MEDS ORDERED: BISACODYL 10 MG SUPP RC SCH (08:18)
[2018-07-26 08:19] LABS: ANION GAP 8.9 (8-16); CARBON DIOXIDE 29.5 mmol/L (21-32); POTASSIUM 3.4 mmol/L (3.5-5.1)
[2018-07-26] MEDS: FERROUS SULFATE 325 MG TABEC PO SCH (08:35)
[2018-07-26] MEDS: SPIRONOLACTONE 25 MG TAB PO SCH (08:36)
[2018-07-26] MEDS: FUROSEMIDE 40 MG TAB PO SCH ×2 (08:37→16:14)
[2018-07-26] MEDS: SODIUM PHOS / POTASSIUM PHOS 1 PKT PDR PO SCH ×2 (08:38→21:33)
[2018-07-26] MEDS: amLODIPine 5 MG TAB PO SCH (08:38)
[2018-07-26] MEDS: MAGNESIUM OXIDE 400 MG TAB PO SCH ×2 (08:38→21:32)
[2018-07-26] MEDS: VIT-B COMP/VIT-C/FOLIC ACID 1 TAB PO SCH (08:38)
[2018-07-26] MEDS: METOLAZONE 5 MG TAB PO SCH (08:39)
[2018-07-26] MEDS: PANTOPRAZOLE 40 MG TABEC PO SCH ×2 (08:39→21:33)
[2018-07-26] MEDS: NYSTATIN POW 100 MU/GM 15 GM BTL TP SCH ×2 (08:42→21:33)
--- NOTE | 2018-07-26 09:53 | NUR ---
RECEIVED A CALL FROM OMER FROM [facility]. THE PATIENT HAS A CHAIR TIME. WEDNESDAY, WEDNESDAY AND WEDNESDAY AT 2P.M. AT [facility] [address] [facility] [address] PHONE [phone] Deangelo MENARD. PATIENT TO START THIS Wednesday07/28/18 . TO BE THERE AT 1P.M. TO FILL OUT FORMS. PATIENT TO BRING ID AND INSURANCE CARD. I INFORM DR. DAVID
[2018-07-26] MEDS ORDERED: MAGNESIUM OXIDE 400 MG TAB PO SCH (10:21)
[2018-07-26] MEDS ORDERED: POTASSIUM CHLORIDE 10 MEQ TABER PO SCH (10:22)
--- NOTE | 2018-07-26 10:30 | NUR ---
PT REMAINS ALERT ORIENTED, ABLE TO COMMUNICATE NEEDS. PT TOLERATED BREAKFAST, DENIES SOB, PAIN, N/V , NO S/S OF ACUTE DISTRESS NOTED. CALL LIGHT AND SAFETY MEASURES IN PLACE, WILL CONTINUE TO MONITOR.
--- NOTE | 2018-07-26 10:41 | NUR ---
GAVE PATIENT SCHEDULE FOR HD. AT [facility].
[2018-07-26] MEDS ORDERED: TAMS0.4C96 PO (11:02)
[2018-07-26] MEDS ORDERED: FURO40TA9 PO (11:02)
[2018-07-26] MEDS ORDERED: SPIR25TA PO (11:02)
[2018-07-26] MEDS ORDERED: METO5TAB9 PO (11:02)
[2018-07-26] MEDS ORDERED: CLON0.1T42 PO (11:04)
[2018-07-26] MEDS ORDERED: AMLO5TAB6 PO (11:04)
[2018-07-26] MEDS ORDERED: FER325 PO (11:04)
[2018-07-26] MEDS ORDERED: ASCO500T45 PO (11:05)
--- NOTE | 2018-07-26 13:30 | NUR ---
PT REMAINS AWAKE ALERT ORIENTED, ABLE TO COMMUNICATE NEEDS. PT DENIES SOB, PAIN, NV, TOLERATED LUNCH WELL. NO S/S OF ACUTE DISTRESS NOTED. CALL LIGHT AND SAFETY MEASURES IN PLACE, WILL CONTINUE TO MONITOR.
[2018-07-26 14:54] LABS: ANION GAP 4.8 (8-16); CARBON DIOXIDE 31.9 mmol/L (21-32); CREATININE 3.6 mg/dL (0.7-1.3); POTASSIUM 3.7 mmol/L (3.5-5.1)
--- NOTE | 2018-07-26 15:37 | NUR ---
SPOKE WITH PATIENT EARLIER. HE SEEMED CONCERNED ABOUT THE MEDICAL. I CALLED ALAN AT [facility] AND ASKED HER IF THEY CHECKED THE MEDICAL ELIGIBILITY. SHE CHECK AND CALLED ME BACK AND SAID THAT THE PATIENT HAD NO MEDICAL ELIGIBILITY. I CALLED [facility] IN ADMITTING TO CHECK. SHE SAID THERE WAS NO ELIGIBILTIY FOR MEDICAL FOR THIS PATIENT AT THIS TIME, BUT HE DID HAVE [facility]ICAL [facility]P [facility] IN JUNE. I INFORMED DR. DURON. I DID TELL THE PATIENT HE WILL NOT BE DISCHARGED UNTIL THE MEDICAL IS CONFIRMED. I SPOKE WITH ALAN AT [facility], , AND SHE SAID ALL THEY NEED IS THE CASE NUMBER FOR MEDICAL FOR THEM TO ACCEPT THE PATIENT.
[2018-07-26 16:00] VITALS: BP 152/83
--- NOTE | 2018-07-26 16:09 | NUR ---
CALLED [facility] AND CANCELED THE APPOINTMENT FOR TOMORROW, Jul. NEW APPOINTMENT MADE FOR Jul AT 3:15P.M. AT [address] [facility] [place] [address] PHONE [phone]. GAVE APPOINTMENT TO PATIENT.
[2018-07-26] MEDS: TAMSULOSIN 0.4 MG CAP PO SCH (16:13)
--- NOTE | 2018-07-26 16:30 | NUR ---
PT REMAINS AWAKE ALERT ORIENTED, ABLE TO COMMUNICATE NEEDS. FAMILY AT BEDSIDE. PT DENIES SOB, PAIN, NV. NO S/S OF ACUTE DISTRESS NOTED. CALL LIGHT AND SAFETY MEASURES IN PLACE, WILL CONTINUE TO MONITOR.
--- NOTE | 2018-07-26 19:15 | NUR ---
RELIEVED BEDSIDE REPORT FROM DAY SHIFT RN, PATIENT IN BED, SLEEPING, ON RA, NO SIGNS OF ACUTE DISTRESS.
--- NOTE | 2018-07-26 19:17 | NUR ---
PT REMAINS AWAKE ALERT ORIENTED, ABLE TO COMMUNICATE NEEDS. PT DENIES SOB, PAIN, NV. NO S/S OF ACUTE DISTRESS NOTED TOLERATED DINNER WELL. CALL LIGHT AND SAFETY MEASURES IN PLACE REPORT ENDORSED TO ONCOMING NURSE ANNMARIE.
--- NOTE | 2018-07-26 20:10 | NUR ---
PATIENT STATED HE FEELS GOOD AND DOES NOT WANT HHN TREATMENT. NO SIGNS OF RESP. DISTRESS NOTED
--- NOTE | 2018-07-26 21:32 | NUR ---
BP 151/81 DUE MEDICATIONS GIVEN. PATIENT REQUESTED COLACE TO HAVE A SOFTER BM, MEDICATED WITH COLACE.
[2018-07-26] MEDS: DOCUSATE SODIUM 100 MG GELCAP PO PRN (21:33)
--- NOTE | 2018-07-26 22:00 | NUR ---
ENDORSED PATIENT TO YASMEEN ANDINO FOR CONTINUITY OF CARE. Patient's Plan of Care was discussed and reviewed with ISABEL andino
--- NOTE | 2018-07-26 22:01 | NUR ---
RECD. RESTING IN BED, AWAKE, A/OX4. RESPIRATION EVEN AND UNLABORED. IV SALINE LOCK AT THE RIGHT FOREARM G22, PATENT AND INTACT. DIALYSIS TUNNELED CATH AT THE RIGHT UPPER CHEST WITH DRESSING DRY AND INTACT. DENIES PAIN 0/10.
[2018-07-27] VITALS: BP 151/83
--- NOTE | 2018-07-27 | NUR ---
SLEEPING COMFORTABLY IN BED.
[2018-07-27] MEDS: cloNIDine 0.1 MG TAB PO SCH ×4 (05:36→21:10)
[2018-07-27 06:08] LABS: BASOPHILS % (AUTO) 0.7 % (0.0-2.0); EOSINOPHILS # (AUTO) 0.7 K/uL (0-0.4); EOSINOPHILS % (AUTO) 9.7 % (0.0-4.0); HEMATOCRIT 22.8 % (36-52); HEMOGLOBIN 7.9 g/dL (12.0-18.0); LYMPHOCYTES # (AUTO) 0.8 K/uL (2.0-11.5); LYMPHOCYTES % (AUTO) 11.1 % (20.5-51.1); MEAN CORPUSCULAR HEMOGLOBIN 30 pg (27-31); MEAN CORPUSCULAR HGB CONC 35 g/dL (33-37); MEAN CORPUSCULAR VOLUME 87.2 fL (80-94); MONOCYTES # (AUTO) 0.6 K/uL (0.8-1.0); MONOCYTES % (AUTO) 8.6 % (1.7-9.3); NEUTROPHILS # (AUTO) 5.1 K/uL (1.8-7.7); NEUTROPHILS % (AUTO) 69.9 % (42.2-75.2); PLATELET COUNT (AUTO) 154 K/uL (140-450); RED BLOOD CELL COUNT(AUTO) 2.61 MIL/uL (4.20-6.10); RED CELL DISTRIBUTION WIDTH 11.9 % (11.6-13.7); WHITE BLOOD COUNT (AUTO) 7.3 K/uL (4.8-10.8)
[2018-07-27 06:19] LABS: ANION GAP 4.8 (8-16); POTASSIUM 3.8 mmol/L (3.5-5.1)
[2018-07-27 06:25] LABS: MAGNESIUM 1.8 mg/dL (1.8-2.4); PHOSPHORUS 3.3 mg/dL (2.5-4.9)
[2018-07-27] MEDS: ALBUTEROL SULFATE/IPRATROPIU 3 ML SOL IH SCH ×2 (07:30→19:30)
--- NOTE | 2018-07-27 07:30 | NUR ---
ABLE TO SLEEP WELL, ENDORSED TO AM SHIFT NURSE FOR CONTINUITY OF CARE.
--- NOTE | 2018-07-27 07:41 | NUR ---
AWAKE AND ALERT NO SOB NOTED GOOD CHEST RISE ASSESSMENT DONE REFUSED HHN THERAPY PATIENT STATES "I'M FINE I DON'T NEED IT" YANG/RN NOTIFIED
[2018-07-27 08:00] VITALS: BP 159/85
[2018-07-27] MEDS: FUROSEMIDE 40 MG TAB PO SCH ×2 (09:00→17:27)
[2018-07-27] MEDS: amLODIPine 5 MG TAB PO SCH (09:00)
[2018-07-27] MEDS: METOLAZONE 5 MG TAB PO SCH (09:00)
[2018-07-27] MEDS: SPIRONOLACTONE 25 MG TAB PO SCH (09:00)
[2018-07-27] MEDS: MAGNESIUM OXIDE 400 MG TAB PO SCH ×2 (09:00→13:59)
[2018-07-27] MEDS: VIT-B COMP/VIT-C/FOLIC ACID 1 TAB PO SCH ×2 (09:48→13:59)
[2018-07-27] MEDS: PANTOPRAZOLE 40 MG TABEC PO SCH ×2 (09:48→21:11)
[2018-07-27] MEDS: DOCUSATE SODIUM 100 MG GELCAP PO PRN ×2 (09:48→13:59)
[2018-07-27] MEDS: FERROUS SULFATE 325 MG TABEC PO SCH ×2 (09:48→13:58)
[2018-07-27] MEDS: SODIUM PHOS / POTASSIUM PHOS 1 PKT PDR PO SCH ×3 (09:49→21:08)
--- NOTE | 2018-07-27 09:52 | NUR ---
PATIENT REFUSES TO TAKE SCHEDULED MEDICATIONS AT THIS TIME. PATIENT REQUESTS TO TAKE HIS MEDICATIONS AFTER HEMODIALYSIS
--- NOTE | 2018-07-27 11:17 | NUR ---
HEMODIALYSIS IN PROGRESS. PATIENT AWAKE IN BED. NO S/S OF DISTRESS NOTED
--- NOTE | 2018-07-27 13:30 | NUR ---
HD DONE. 1500ML OUTPUT. PATIENT AWAKE IN BED. NO S/S OF DISTRESS NOTED. WILL CONTINUE TO MONITOR
--- NOTE | 2018-07-27 14:22 | NUR ---
YASMIN NOTE RECEIVED FAX OF PATIENT INSURABILITY ASSESSMENT FORM FROM [facility]. [facility] PH# [phone] REQUESTED TO ASK PATIENT REGARDING QUESTIONS ON THE PATIENT INSURABILITY ASSESSMENT FORM AND TO HAVE PATIENT ANSWER IN THE BEST OF HIS ABILITY AND TO FAX THE PATIENT INSURABILITY ASSESSMENT FORM BACK TO [facility]. FAXED PATIENT INSURABILITY ASSESSMENT FORM BACK TO [facility] ATTN: ALAN. YASMIN ESTEVEZ.
[2018-07-27] MEDS: NYSTATIN POW 100 MU/GM 15 GM BTL TP SCH ×2 (17:24→21:12)
[2018-07-27] MEDS: TAMSULOSIN 0.4 MG CAP PO SCH (17:26)
[2018-07-27 17:32] VITALS: BP 155/86
--- NOTE | 2018-07-27 19:20 | NUR ---
PATIENT REPORT GIVEN AT BEDSIDE. PATIENT ENDORSED IN STABLE CONDITION
--- NOTE | 2018-07-27 20:00 | NUR ---
Patient's Plan of Care was discussed and reviewed with PATENT LEATHER SORTER: THU MATUTE LVN.
--- NOTE | 2018-07-27 21:10 | NUR ---
MEDICATED WITH CATAPRES 0.2 MG. PO ORDERED, BP -160/86, HR -78.
--- NOTE | 2018-07-27 22:40 | NUR ---
BP CHECKED - 166/90, HR -74. INFORMED DR. ANDRADE. ADVISED TO CHECK BP AGAIN AFTER AND HOUR AND INFORM HER.
[2018-07-27] MEDS ORDERED: SIMETHICONE 80 MG TAB.CHEW PO PRN (22:45)
[2018-07-28] VITALS: BP 160/66
--- NOTE | 2018-07-28 01:30 | NUR ---
CHECKED PATIENT, SLEEPING COMFORTABLY IN BED.
[2018-07-28] MEDS: cloNIDine 0.1 MG TAB PO SCH ×3 (05:16→20:02)
[2018-07-28] MEDS: LORazepam 1 MG TAB PO PRN (05:17)
--- NOTE | 2018-07-28 05:17 | NUR ---
WITH ANXIETY, MEDICATED WITH ATIVAN 1 MG. PO ORDERED.
--- NOTE | 2018-07-28 06:40 | NUR ---
AWAKE, NO ANXIETY. BP CHECKED - 175/89, HR -71, INFORMED DR. KILGORE AND DR. DAVID, PATIENT BP IS NOT RESPONDING TO CATAPRES GIVEN AT 0512. NO NEW ORDER MADE, STATED BP OF PATIENT HAS BEEN LIKE THAT ALL THE TIME. WILL ENDORSE TO AM NURSE FOR MONITORING.
--- NOTE | 2018-07-28 07:14 | NUR ---
SLEEPING IN BED, ENDORSED TO AM SHIFT NURSE FOR MONITORING OF BP AND CONTINUITY OF CARE.
--- NOTE | 2018-07-28 07:15 | NUR ---
RECEIVED BEDSIDE REPORT FROM CARYN ANDINO. PT SLEEPING, BUT EASILY AROUSABLE. NO SIGNS OF DISTRESS NOTED. NO REDNESS, SWELLING, OR INFLAMMATION NOTED ON IV SITE. CALL DE LUNA WITHIN REACH. SAFETY MEASURES IN PLACE. PLAN OF CARE REVIEWED.
[2018-07-28 07:29] LABS: BASOPHILS # (AUTO) 0.1 K/uL (0.00-0.22); BASOPHILS % (AUTO) 0.7 % (0.0-2.0); EOSINOPHILS # (AUTO) 0.3 K/uL (0-0.4); EOSINOPHILS % (AUTO) 4.5 % (0.0-4.0); HEMATOCRIT 24.6 % (36-52); HEMOGLOBIN 8.6 g/dL (12.0-18.0); LYMPHOCYTES # (AUTO) 0.7 K/uL (2.0-11.5); LYMPHOCYTES % (AUTO) 9.5 % (20.5-51.1); MEAN CORPUSCULAR HEMOGLOBIN 30 pg (27-31); MEAN CORPUSCULAR HGB CONC 35 g/dL (33-37); MEAN CORPUSCULAR VOLUME 87.1 fL (80-94); MONOCYTES # (AUTO) 0.5 K/uL (0.8-1.0); MONOCYTES % (AUTO) 6.9 % (1.7-9.3); NEUTROPHILS # (AUTO) 5.7 K/uL (1.8-7.7); NEUTROPHILS % (AUTO) 78.4 % (42.2-75.2); PLATELET COUNT (AUTO) 173 K/uL (140-450); RED BLOOD CELL COUNT(AUTO) 2.82 MIL/uL (4.20-6.10); RED CELL DISTRIBUTION WIDTH 12.1 % (11.6-13.7); WHITE BLOOD COUNT (AUTO) 7.3 K/uL (4.8-10.8)
[2018-07-28] MEDS: ALBUTEROL SULFATE/IPRATROPIU 3 ML SOL IH SCH (07:30)
--- NOTE | 2018-07-28 07:55 | NUR ---
RECEIVED PATIENT ON ROOM AIR, PULSE OX SAT 98%. PATIENT REFUSED BREATHING TX. PATIENT STATES TO BE "FEELING FINE. HAVING NO TROUBLE BREATHING AND DOES NOT NEED A BREATHING TREATMENT." BREATH SOUNDS CLEAR. NO SOB NOTED. NO RESPIRATORY DISTRESS AT THIS TIME. WILL CONTINUE TO MONITOR.
[2018-07-28 08:00] VITALS: BP 171/74
[2018-07-28 08:11] LABS: ANION GAP 8.5 (8-16); POTASSIUM 3.5 mmol/L (3.5-5.1)
[2018-07-28 08:15] LABS: MAGNESIUM 1.7 mg/dL (1.8-2.4); PHOSPHORUS 2.5 mg/dL (2.5-4.9)
--- NOTE | 2018-07-28 08:33 | NUR ---
Called Susan from [facility] and informed her that insurance is still pending. Susan requesting a copy of the pt's green card.
--- NOTE | 2018-07-28 08:36 | NUR ---
Informed pt that [facility] is requesting a copy of his green card. Pt stated "my green card is already ". Pt will tell his sister to bring a copy of his green card".
--- NOTE | 2018-07-28 08:39 | NUR ---
Informed Susan from [employer] that the pt's green card is already . We will fax a copy of the green card to Susan once we get it from the pt.
[2018-07-28] MEDS: amLODIPine 5 MG TAB PO SCH (08:46)
[2018-07-28] MEDS: VIT-B COMP/VIT-C/FOLIC ACID 1 TAB PO SCH (08:46)
[2018-07-28] MEDS: SODIUM PHOS / POTASSIUM PHOS 1 PKT PDR PO SCH ×2 (08:47→20:03)
[2018-07-28] MEDS: METOLAZONE 5 MG TAB PO SCH (08:47)
[2018-07-28] MEDS: FERROUS SULFATE 325 MG TABEC PO SCH (08:47)
[2018-07-28] MEDS: FUROSEMIDE 40 MG TAB PO SCH ×2 (08:48→17:27)
[2018-07-28] MEDS: PANTOPRAZOLE 40 MG TABEC PO SCH ×2 (08:48→20:03)
[2018-07-28] MEDS: MAGNESIUM OXIDE 400 MG TAB PO SCH (08:48)
[2018-07-28] MEDS: SPIRONOLACTONE 25 MG TAB PO SCH (08:49)
[2018-07-28] MEDS: NYSTATIN POW 100 MU/GM 15 GM BTL TP SCH ×2 (08:50→20:04)
--- NOTE | 2018-07-28 08:50 | NUR ---
BP DOWN TO 168/89. ADMINISTERED SCHEDULED MEDICATIONS. PT TOLERATED WELL. WILL RECHECK BP.
--- NOTE | 2018-07-28 09:45 | NUR ---
RECHECKED BP DOWN TO 154/86, HR 75. PT STABLE, AWAKE, AND ALERT.
--- NOTE | 2018-07-28 12:23 | NUR ---
ADMINISTERED SCHEDULED MEDICATION. PT TOLERATED WELL. NO OTHER NEEDS AT THIS TIME.
--- NOTE | 2018-07-28 15:40 | NUR ---
PT STABLE, AWAKE, AND ALERT. FAMILY AT THE BEDSIDE. NO OTHER NEEDS AT THIS TIME.
[2018-07-28 16:00] VITALS: BP 138/78
[2018-07-28] MEDS: TAMSULOSIN 0.4 MG CAP PO SCH (17:26)
--- NOTE | 2018-07-28 17:26 | NUR ---
ADMINISTERED SCHEDULED MEDICATIONS. PT TOLERATED WELL. NO OTHER NEEDS AT THIS TIME.
[2018-07-28] MEDS ORDERED: POLYETHYLENE GLYCOL 17 GM/PKT PO SCH (18:00)
[2018-07-28] MEDS ORDERED: BISACODYL 10 MG SUPP RC SCH (18:00)
--- NOTE | 2018-07-28 19:20 | NUR ---
RECEIVED BEDSIDE REPORT FROM RN SHAHLA LAMB, PATIENT IN BED, FAMILY AT BEDSIDE. UPPER RIGHT ARM TUNNELED CATH, DRESSING INTACT, RIGHT FA 20G, SL, DRESSING INTACT. PATIENT AAOX4, NO SIGNS OF ACUTE DISTRESS. PATIENT REQUESTED COLACE FOR RECENT HARD STOOLS. WILL GIVE COLACE WILL SCHEDULED MEDICATIONS. BP 168/90 HR 84. WILL GIVE CLONIDINE. FAMILY AT BEDSIDE QUESTIONS ANSWERED WILL CONTINUE TO MONITOR.
--- NOTE | 2018-07-28 19:20 | NUR ---
ENDORSED PT TO RN SUMMER FOR CONTINUITY OF CARE. PT STABLE, AWAKE, AND ALERT.
[2018-07-28] MEDS: DOCUSATE SODIUM 100 MG GELCAP PO PRN (20:03)
--- NOTE | 2018-07-28 20:03 | NUR ---
DUE MEDICATIONS GIVEN, PATIENT TOLERATED WELL. WILL CONTINUE TO MONITOR BP.
[2018-07-28] MEDS ORDERED: ENALAPRILAT 2.5 MG/2 ML VIAL IVP ONE (23:10)
--- NOTE | 2018-07-28 23:25 | NUR ---
SPOKE WITH RESIDENTS, EXPLAINED BP 180/90 HR 64. WILL GIVE VASOTEC ACCORDING TO MD ORDER.
[2018-07-29] VITALS: BP 180/90
--- NOTE | 2018-07-29 00:30 | NUR ---
RE CHECKED BP 180/90 HR 64 WILL GIVE LABETALOL 10 MG. PATIENT ON TELE MONITOR. DR STATED ALSO OKAY TO GIVE ATIVAN.
[2018-07-29] MEDS ORDERED: LABETALOL 100 MG/20 ML VIAL IV ONE (00:50)
[2018-07-29] MEDS ORDERED: LABETALOL 100 MG/20 ML VIAL ONE (01:08)
[2018-07-29] MEDS: LORazepam 1 MG TAB PO PRN (01:13)
--- NOTE | 2018-07-29 02:14 | NUR ---
BP 168/88 HR 70 WILL CONTINUE TO MONITOR.
--- NOTE | 2018-07-29 04:00 | NUR ---
PATIENT ASLEEP IN BED NO SIGNS OF DISTRESS, WILL CONTINUE TO MONITOR.
[2018-07-29] MEDS: cloNIDine 0.1 MG TAB PO SCH ×3 (05:26→20:42)
--- NOTE | 2018-07-29 05:28 | NUR ---
DUE CLONIDINE GIVEN BP 168/88 WILL REASSESS BP
[2018-07-29 06:12] LABS: BASOPHILS % (AUTO) 0.4 % (0.0-2.0); EOSINOPHILS # (AUTO) 0.1 K/uL (0-0.4); EOSINOPHILS % (AUTO) 1.2 % (0.0-4.0); HEMATOCRIT 23.4 % (36-52); HEMOGLOBIN 8.1 g/dL (12.0-18.0); LYMPHOCYTES # (AUTO) 0.6 K/uL (2.0-11.5); LYMPHOCYTES % (AUTO) 5.6 % (20.5-51.1); MEAN CORPUSCULAR HEMOGLOBIN 30 pg (27-31); MEAN CORPUSCULAR HGB CONC 35 g/dL (33-37); MEAN CORPUSCULAR VOLUME 86.8 fL (80-94); MONOCYTES # (AUTO) 0.6 K/uL (0.8-1.0); MONOCYTES % (AUTO) 5.4 % (1.7-9.3); NEUTROPHILS # (AUTO) 9.3 K/uL (1.8-7.7); NEUTROPHILS % (AUTO) 87.4 % (42.2-75.2); PLATELET COUNT (AUTO) 176 K/uL (140-450); RED CELL DISTRIBUTION WIDTH 11.8 % (11.6-13.7); WHITE BLOOD COUNT (AUTO) 10.7 K/uL (4.8-10.8)
[2018-07-29 06:38] LABS: ANION GAP 4.8 (8-16); CARBON DIOXIDE 31.8 mmol/L (21-32); CREATININE 3.9 mg/dL (0.7-1.3); POTASSIUM 3.6 mmol/L (3.5-5.1)
[2018-07-29 06:44] LABS: MAGNESIUM 1.8 mg/dL (1.8-2.4); PHOSPHORUS 3.2 mg/dL (2.5-4.9)
--- NOTE | 2018-07-29 07:05 | NUR ---
RECEIVED BEDSIDE REPORT FROM RN SUMMER. PT SLEEPING BUT EASILY AROUSABLE. NO SIGNS OF DISTRESS NOTED. NO REDNESS, SWELLING, OR INFLAMMATION NOTED ON IV SITE, SALINE LOCKED. CALL DE LU[facility] WITHIN REACH. SAFETY MEASURES IN PLACE. PLAN OF CARE REVIEWED.
--- NOTE | 2018-07-29 07:15 | NUR ---
ENDORSED PATIENT TO DAY SHIFT NURSE, PATIENT STABLE.
[2018-07-29 08:00] VITALS: BP 170/91
[2018-07-29] MEDS: FERROUS SULFATE 325 MG TABEC PO SCH (08:00)
[2018-07-29] MEDS: SPIRONOLACTONE 25 MG TAB PO SCH ×2 (09:00→11:07)
[2018-07-29] MEDS: VIT-B COMP/VIT-C/FOLIC ACID 1 TAB PO SCH (09:00)
[2018-07-29] MEDS: amLODIPine 5 MG TAB PO SCH ×2 (09:00→11:08)
[2018-07-29] MEDS: PANTOPRAZOLE 40 MG TABEC PO SCH ×2 (09:00→20:42)
[2018-07-29] MEDS: FUROSEMIDE 40 MG TAB PO SCH ×2 (09:00→17:00)
[2018-07-29] MEDS: METOLAZONE 5 MG TAB PO SCH (09:00)
[2018-07-29] MEDS: SODIUM PHOS / POTASSIUM PHOS 1 PKT PDR PO SCH ×3 (09:00→20:42)
[2018-07-29] MEDS: MAGNESIUM OXIDE 400 MG TAB PO SCH ×2 (09:00→11:07)
--- NOTE | 2018-07-29 09:30 | NUR ---
SCHEDULED MEDICATIONS NON-ADMINISTERED D/T HEMODIALYSIS.
--- NOTE | 2018-07-29 11:10 | NUR ---
ADMINISTERED SCHEDULED AMLODIPINE , ALDACTONE, MAGNESIUM OXIDE, AND PHOSNAK. PER DIALYSIS NURSE OLYA, BP UP TO 180/88 HR 83.
[2018-07-29] MEDS: BISACODYL 10 MG SUPP RC SCH ×2 (11:30→14:10)
--- NOTE | 2018-07-29 12:48 | NUR ---
HEMODIALYSIS DONE, PER DIALYSIS NURSE OLYA, 1.7L FLUIDS TAKEN OUT. BP 166/85, SCHEDULED CLONIDINE ADMINISTERED. PT TOLERATED WELL.
--- NOTE | 2018-07-29 14:16 | NUR ---
RECHECKED BP AFTER CLONIDINE WAS ADMINISTERED, BP DOWN TO 156/78, HR 85.
--- NOTE | 2018-07-29 15:50 | NUR ---
SPOKE WITH DIRECTOR REVENUE NELI REGARDING PT'S PLAN OF CARE.
[2018-07-29 16:00] VITALS: BP 157/86
--- NOTE | 2018-07-29 16:28 | NUR ---
LATE ENTRY CALLED ALAN SERRA, AT [phone]. I ASKED ABOUT WHETHER THE PATIENT WAS OKAY TO BE DISCHARGED AND TO START OP DIALYSIS. SHE SAID THAT SHE WAS WAITING TO HEAR FROM MAURICIO AT [facility], . I SAW THE PATIENT TODAY AND FAXED THE NEW FACE SHEET AND COPY OF SOCIAL SECURITY CARE, DRIVERS LICENSE AND RESIDENT CARD TO BOTH ALAN AT [facility], AND TO [facility], . I CALLED LATER AND SPOKE WITH MAURICIO, AND SHE SAID SHE WOULD LOOK AT THE INFORMATION. I ALSO INFORMED HER THAT THIS PATIENT HAD HCLS. SHE SAID THEY DON'T HAVE ANYONE OVER THE WEEKEND AND SHE WOULD SEE WHAT SHE COULD DO TODAY. I CALLED ALAN AT [facility] AND SAID IF EVERYTHING IS SET, TO CALL THE FLOOR . ALAN SAID THERE IS NOTHING SHE COULD DO UNTIL SHE HEARS FROM [facility]. Addendum: 07/29/18 at 1640 by Marily De La Rosa CM I ALSO CALLED [facility] THIS MORNING ABOUT THIS PATIENT, ASKING ABOUT THE STATUS OF INSURANCE. Addendum: 07/29/18 at 1648 by Marily De La Rosa CM I CALLED EDWIN FROM [facility] ABOUT THE PATIENT'S SOCIAL SECURITY CARD, ID,ETC. HE SAID TO CALL THE SISTER, Nupur DAVIS, OR OFFICE, . I CALLED AND LEFT SEVERAL MESSAGES, NO CALL BACK. I CALLED [facility] EARLY THIS AM [facility]
[2018-07-29] MEDS: TAMSULOSIN 0.4 MG CAP PO SCH (16:59)
--- NOTE | 2018-07-29 17:02 | NUR ---
ADMINISTERED SCHEDULED MEDICATIONS. PT TOLERATED WELL. NO OTHER NEEDS AT THIS TIME.
--- NOTE | 2018-07-29 19:26 | NUR ---
ENDORSED PT TO CARYN JUAREZ FOR CONTINUITY OF CARE. PT STABLE, AWAKE, AND ALERT.
--- NOTE | 2018-07-29 19:27 | NUR ---
RECEIVED REPORT FROM SHAHLA LAMB FOR CONTINUITY OF CARE, PT IN STABLE CONDITION.
--- NOTE | 2018-07-29 20:00 | NUR ---
PT IN BED RESTING WITH EYES CLOSED, BUT AROUSABLE TO NAME. PT HAS INTACT DALTON CATH ON RIGHT SUB-CLAVICAL. PT HAS R F/A 20 GUAGE INTACT AND SALINE LOCKED. PT IS ON STRICT I AND O. V/S FOLLOWS T 99.6 P 83 R 18 B/P 159/86 02 96% ON R/A. PT DENIES PAIN. PT HAD A BM, BUT HE SAID THAT HE STILL FEELS CONSTIPATED. PT REMINDED THAT HE WAS GIVEN COLACE ORDERED AND THAT HE HAS TO ALLOW TIME FOR THE MEDICATION TO WORK. PT ALSO HAS 4 0Z PRUNE JUICE AT BEDSIDE. PT REMINDED THAT HE IS ON RESTRICTION BUT THAT HE MAY HAVE THE PRUNE JUICE IF HE WANTS . PT ENCOURAGE TO USE URINAL SO THAT I AND O COULD BE MORE ACCURATE.
--- NOTE | 2018-07-29 21:00 | NUR ---
PT GIVEN DUE BLOOD PRESSURE PILLS AND NUTRA-PHOS IN 8 0Z GLASS OF WATER. WILL REASSESS THE B/P FOR EFFECTIVENESS.
--- NOTE | 2018-07-29 23:30 | NUR ---
PT IN BED NO S/S OF PAIN OR DISTRESS NOTED. PT DENIES PAIN AT THIS TIME. RE-EVALUATION OF B/P WAS P 84 B/P 162/91. DR. DELACRUZ MADE AWARE OF PT BLOOD PRESSURE, AND SHE SAID TO CONTINUE TO MONITOR B/P.
[2018-07-30] VITALS: BP 162/91
--- NOTE | 2018-07-30 | NUR ---
PT IN BED NO S/S OF PAIN OR DISTRESS NOTED. PT DID NOT CONSUME PRUNE JUICE HE SAID THAT HE DIDNT NEED IT. PT DID C/O OF DRY MOUTH AND WAS GIVEN 1/2 CUP OF ICE CHIP. V/S FOLLOWS T 97.8 P 78 R 20 B/P 162/91 02 95% ON R/A. DR. DELACRUZ MADE AWARE OF B/P REASSESSMENT, NO NEW ORDERS BUT TO CONTINUE TO MONITOR B/P DURING SHIFT. WILL RE-EVALUATE B/P LATER.
--- NOTE | 2018-07-30 05:00 | NUR ---
CLONIDINE 0.3MG DUE AT THIS TIME. GIVEN TO PT AND WILL REEVALUATE B/P BEFORE THE END OF SHIFT.
[2018-07-30] MEDS: cloNIDine 0.1 MG TAB PO SCH ×3 (05:10→20:24)
--- NOTE | 2018-07-30 06:50 | NUR ---
REASSESSMENT OF B/P IS 163/89. WILL ENDORSE TO NEXT SHIFT.
[2018-07-30 07:18] LABS: BASOPHILS % (AUTO) 0.7 % (0.0-2.0); EOSINOPHILS # (AUTO) 0.1 K/uL (0-0.4); EOSINOPHILS % (AUTO) 2.4 % (0.0-4.0); HEMATOCRIT 23.6 % (36-52); LYMPHOCYTES # (AUTO) 0.8 K/uL (2.0-11.5); LYMPHOCYTES % (AUTO) 14.4 % (20.5-51.1); MEAN CORPUSCULAR HEMOGLOBIN 30 pg (27-31); MEAN CORPUSCULAR HGB CONC 34 g/dL (33-37); MEAN CORPUSCULAR VOLUME 87.2 fL (80-94); MONOCYTES # (AUTO) 0.6 K/uL (0.8-1.0); MONOCYTES % (AUTO) 10.7 % (1.7-9.3); NEUTROPHILS % (AUTO) 71.8 % (42.2-75.2); PLATELET COUNT (AUTO) 168 K/uL (140-450); RED CELL DISTRIBUTION WIDTH 11.8 % (11.6-13.7); WHITE BLOOD COUNT (AUTO) 5.6 K/uL (4.8-10.8)
--- NOTE | 2018-07-30 07:20 | NUR ---
ENDORSED CARE TO SHAHLA LAMB RN AT BEDSIDE FOR CONTINUITY OF CARE, PT IN STABLE CONDITION.
--- NOTE | 2018-07-30 07:21 | NUR ---
RECEIVED BEDSIDE REPORT FROM CARYN JUAREZ. PT STABLE, AWAKE, AND ALERT. NO SIGNS OF DISTRESS NOTED. NO REDNESS SWELLING OR INFLAMMATION NOTED ON IV SITE. DENIES PAIN. CALL DE LUNA WITHIN REACH. SAFETY MEASURES IN PLACE. PLAN OF CARE REVIEWED.
[2018-07-30 07:23] LABS: ANION GAP 2.9 (8-16); CARBON DIOXIDE 32.4 mmol/L (21-32); CREATININE 3.2 mg/dL (0.7-1.3); POTASSIUM 3.3 mmol/L (3.5-5.1)
[2018-07-30 07:30] LABS: MAGNESIUM 1.6 mg/dL (1.8-2.4); PHOSPHORUS 2.9 mg/dL (2.5-4.9)
[2018-07-30 08:00] VITALS: BP 160/85
[2018-07-30] MEDS: amLODIPine 5 MG TAB PO SCH (08:24)
[2018-07-30] MEDS: METOLAZONE 5 MG TAB PO SCH (08:24)
[2018-07-30] MEDS: VIT-B COMP/VIT-C/FOLIC ACID 1 TAB PO SCH (08:24)
[2018-07-30] MEDS: SODIUM PHOS / POTASSIUM PHOS 1 PKT PDR PO SCH ×2 (08:24→20:24)
[2018-07-30] MEDS: SPIRONOLACTONE 25 MG TAB PO SCH (08:25)
[2018-07-30] MEDS: FUROSEMIDE 40 MG TAB PO SCH ×2 (08:25→16:27)
--- NOTE | 2018-07-30 08:25 | NUR ---
ADMINISTERED SCHEDULED MEDICATIONS. PT TOLERATED WELL. NO OTHER NEEDS AT THIS TIME.
[2018-07-30] MEDS: PANTOPRAZOLE 40 MG TABEC PO SCH ×2 (08:26→20:24)
[2018-07-30] MEDS: FERROUS SULFATE 325 MG TABEC PO SCH (08:26)
[2018-07-30] MEDS: MAGNESIUM OXIDE 400 MG TAB PO SCH (08:26)
--- NOTE | 2018-07-30 10:15 | NUR ---
PT STABLE, AWAKE, AND ALERT. NO NEEDS AT THIS TIME. FAMILY AT THE BEDSIDE.
[2018-07-30] MEDS ORDERED: MAG SULF 2000 MG/WATER PREMIX 50 ML IV SCH (11:00)
--- NOTE | 2018-07-30 12:44 | NUR ---
ADMINISTERED SCHEDULED CLONIDINE, BP 136/74 HR 75. WILL RE-CHECK BP AND HR.
--- NOTE | 2018-07-30 13:58 | NUR ---
RE-INSERTED PERIPHERAL IV ON LEFT HAND 22G. IV PATENT, INTACT, NO REDNESS, SWELLING, OR INFLAMMATION NOTED.
--- NOTE | 2018-07-30 14:14 | NUR ---
RECHECKED BP AFTER CLONIDINE ADMIN., BP DOWN TO 126/84 HR 74.
[2018-07-30 16:00] VITALS: BP 148/79
[2018-07-30] MEDS: TAMSULOSIN 0.4 MG CAP PO SCH (16:26)
--- NOTE | 2018-07-30 16:29 | NUR ---
ADMINISTERED SCHEDULED MEDICATIONS. PT TOLERATED WELL. NO OTHER NEEDS AT THIS TIME.
--- NOTE | 2018-07-30 19:10 | NUR ---
ENDORSED PATIENT TO ASSISTANT HAIRSTYLIST NURSE FOR CONTINUITY OF CARE. PT STABLE, AWAKE, AND ALERT.
--- NOTE | 2018-07-30 19:11 | NUR ---
RECD. RESTING IN BED, AWAKE, A/OX4. RESPIRATION EVEN AND UNLABORED. IV SALINE LOCK AT THE LEFT HAND G22, PATENT AND INTACT. DIALYSIS CATH AT THE RIGHT UPPER CHEST COVERED WITH DRESSING, DRY AND INTACT. PLAN OF CARE FOR THE SHIFT DISCUSSED. VERBALIZED UNDERSTANDING. DENIES PAIN 0/10.
--- NOTE | 2018-07-30 20:25 | NUR ---
DUE PO MEDICATIONS GIVEN.
--- NOTE | 2018-07-30 21:16 | NUR ---
COMPLAINT OF UNABLE TO PASS GAS COMPLETELY, FEEL BLOATED, MEDICATED WITH MYLICON ORDERED.
--- NOTE | 2018-07-30 23:30 | NUR ---
STILL AWAKE, SEEMS WORRIED BUT REFUSED TO TAKE ATIVAN PO, STATED "I WILL TRY TO SLEEP, I DON'T WANT TO GET USED TO TAKING PILLS".
[2018-07-31] VITALS: BP 146/84
--- NOTE | 2018-07-31 01:00 | NUR ---
STATED HE WAS ABLE TO PASSED GAS WHEN HE AMBULATED TO BR TO VOID.
--- NOTE | 2018-07-31 03:00 | NUR ---
SLEEPING COMFORTABLY IN BED.
[2018-07-31] MEDS: cloNIDine 0.1 MG TAB PO SCH ×3 (04:58→21:12)
--- NOTE | 2018-07-31 07:15 | NUR ---
ENDORSED TO AM NURSE FOR CONTINUITY OF CARE.
--- NOTE | 2018-07-31 07:16 | NUR ---
RECEIVED BEDSIDE REPORT FROM HUMAN PROJECTILE NURSE. PATIENT IS AWAKE, ALERT AND ORIENTEDX4. NO SIGNS OF DISTRESS ON RA. PATIENT IS AMBULATORY. SKIN IS INTACT. DALTON CATH ON RU CHEST. CLEAN, DRY AND INTACT. IV ON L HAND 22G SL. CLEAN, DRY AND INTACT. FLUID RESTRICTIONS IN PLACE. PATIENT CONTINENT. BED IN LOW POSITION. CALL LIGHT WITHIN REACH. WILL CONTINUE TO MONITOR THE PATIENT.
[2018-07-31 08:00] VITALS: BP 159/86
[2018-07-31 08:04] LABS: BASOPHILS % (AUTO) 0.4 % (0.0-2.0); EOSINOPHILS # (AUTO) 0.4 K/uL (0-0.4); EOSINOPHILS % (AUTO) 4.4 % (0.0-4.0); HEMATOCRIT 23.8 % (36-52); HEMOGLOBIN 8.3 g/dL (12.0-18.0); LYMPHOCYTES # (AUTO) 0.7 K/uL (2.0-11.5); MEAN CORPUSCULAR HEMOGLOBIN 30 pg (27-31); MEAN CORPUSCULAR HGB CONC 35 g/dL (33-37); MEAN CORPUSCULAR VOLUME 85.7 fL (80-94); MONOCYTES # (AUTO) 0.6 K/uL (0.8-1.0); MONOCYTES % (AUTO) 6.8 % (1.7-9.3); NEUTROPHILS # (AUTO) 6.9 K/uL (1.8-7.7); NEUTROPHILS % (AUTO) 80.4 % (42.2-75.2); PLATELET COUNT (AUTO) 186 K/uL (140-450); RED BLOOD CELL COUNT(AUTO) 2.78 MIL/uL (4.20-6.10); RED CELL DISTRIBUTION WIDTH 12.1 % (11.6-13.7); WHITE BLOOD COUNT (AUTO) 8.6 K/uL (4.8-10.8)
[2018-07-31 08:15] LABS: ANION GAP 5.2 (8-16); CARBON DIOXIDE 31.2 mmol/L (21-32); POTASSIUM 3.4 mmol/L (3.5-5.1)
[2018-07-31 08:17] LABS: CREATININE 4.1 mg/dL (0.7-1.3)
[2018-07-31 08:18] LABS: MAGNESIUM 1.9 mg/dL (1.8-2.4); PHOSPHORUS 3.5 mg/dL (2.5-4.9)
[2018-07-31] MEDS: FERROUS SULFATE 325 MG TABEC PO SCH (10:00)
[2018-07-31] MEDS: amLODIPine 5 MG TAB PO SCH (10:00)
[2018-07-31] MEDS: FUROSEMIDE 40 MG TAB PO SCH ×2 (10:00→17:11)
[2018-07-31] MEDS: METOLAZONE 5 MG TAB PO SCH (10:01)
[2018-07-31] MEDS: PANTOPRAZOLE 40 MG TABEC PO SCH ×2 (10:01→21:12)
[2018-07-31] MEDS: VIT-B COMP/VIT-C/FOLIC ACID 1 TAB PO SCH (10:01)
[2018-07-31] MEDS: MAGNESIUM OXIDE 400 MG TAB PO SCH (10:01)
[2018-07-31] MEDS: SODIUM PHOS / POTASSIUM PHOS 1 PKT PDR PO SCH ×2 (10:02→21:12)
[2018-07-31] MEDS: SPIRONOLACTONE 25 MG TAB PO SCH (10:02)
--- NOTE | 2018-07-31 10:05 | NUR ---
ADMINISTERED MEDS. PATIENT TOLERATED WELL. WILL CONTINUE TO MONITOR THE PATIENT
[2018-07-31] MEDS ORDERED: POTASSIUM CHLORIDE 10 MEQ TABER PO SCH (11:00)
--- NOTE | 2018-07-31 12:03 | NUR ---
ADMINISTERED MEDS. PATIENT TOLERATED WELL. NO SIGNS OF DISTRESS. BED IN LOW POSITION. CALL LIGHT WITHIN REACH.
[2018-07-31 13:30] VITALS: BP 141/83
--- NOTE | 2018-07-31 14:00 | NUR ---
PATIENT FAMILY AT BEDSIDE. NO SIGNS OF DISTRESS. WILL CONTINUE TO MONITOR
[2018-07-31 16:00] VITALS: BP 142/79
--- NOTE | 2018-07-31 16:00 | NUR ---
VITALS WNL. WILL CONTINUE TO MONITOR
[2018-07-31] MEDS: TAMSULOSIN 0.4 MG CAP PO SCH (17:11)
[2018-07-31] MEDS: DOCUSATE SODIUM 100 MG GELCAP PO PRN (17:13)
--- NOTE | 2018-07-31 17:13 | NUR ---
ADMINISTERED MEDS. PATIENT TOLERATED WELL. NO SIGNS OF DISTRESS. GAVE PRN CONSTIPATION MED. PATIENT TOLERATED WELL.
--- NOTE | 2018-07-31 19:00 | NUR ---
GAVE BEDSIDE REPORT FROM MANAGER RENEWABLE ENERGY NURSE. PATIENT ENDORSED IN STABLE CONDITION
--- NOTE | 2018-07-31 19:01 | NUR ---
RECD. RESTING IN BED, AWAKE, A/OX4. WATCHING TV. RESPIRATION EVEN AND UNLABORED. IV SALINE LOCK AT THE LEFT HAND G22, PATENT AND INTACT. WITH RIGHT UPPER CHEST TUNNEL CATHETER FOR DIALYSIS, DRESSING DRY AND INTACT. PLAN OF CARE FOR THE SHIFT DISCUSSED. VERBALIZED UNDERSTANDING. DENIES PAIN 0/10.
--- NOTE | 2018-07-31 20:00 | NUR ---
Patient's Plan of Care was discussed and reviewed with HEBREW TEACHER: THU MATUTE
--- NOTE | 2018-07-31 21:30 | NUR ---
SLEEPING COMFORTABLY IN BED.
[2018-08-01] VITALS: BP 158/88
--- NOTE | 2018-08-01 04:00 | NUR ---
MADE AWARE OF DIALYSIS TODAY. VERBALIZED UNDERSTANDING.
[2018-08-01] MEDS: cloNIDine 0.1 MG TAB PO SCH ×3 (05:40→20:47)
--- NOTE | 2018-08-01 06:00 | NUR ---
VOIDING WELL, NO BM, LAST IS 07/29/18. INFORMED DR. NATE KISER IS NOT WORKING FOR PATIENT. OPRUNE JUICE GIVEN. WILL ENDORSE TO AM NURSE FOR CONTINUITY OF CARE.
[2018-08-01 07:20] LABS: BASOPHILS % (AUTO) 0.5 % (0.0-2.0); EOSINOPHILS # (AUTO) 0.4 K/uL (0-0.4); EOSINOPHILS % (AUTO) 4.8 % (0.0-4.0); HEMATOCRIT 22.7 % (36-52); LYMPHOCYTES # (AUTO) 0.8 K/uL (2.0-11.5); LYMPHOCYTES % (AUTO) 10.2 % (20.5-51.1); MEAN CORPUSCULAR HEMOGLOBIN 30 pg (27-31); MEAN CORPUSCULAR HGB CONC 35 g/dL (33-37); MEAN CORPUSCULAR VOLUME 85.5 fL (80-94); MONOCYTES # (AUTO) 0.6 K/uL (0.8-1.0); MONOCYTES % (AUTO) 7.9 % (1.7-9.3); NEUTROPHILS # (AUTO) 5.9 K/uL (1.8-7.7); NEUTROPHILS % (AUTO) 76.6 % (42.2-75.2); PLATELET COUNT (AUTO) 188 K/uL (140-450); RED BLOOD CELL COUNT(AUTO) 2.66 MIL/uL (4.20-6.10); RED CELL DISTRIBUTION WIDTH 12.1 % (11.6-13.7); WHITE BLOOD COUNT (AUTO) 7.7 K/uL (4.8-10.8)
--- NOTE | 2018-08-01 07:25 | NUR ---
RECEIVED PT FROM REFERRAL NURSE NURSE, PT IS AWAKE AND LYING ON THE BED SIDE RAILS UP AND CALL LIGHT WITHIN REACH, PT HAS AN IV LINE ON THE LEFT HAND G. 22 ON SALINE LOCK AND A RT UPPER CHEST IJ TUNNEL CATHETER FOR HEMODIALYSIS ACCESS. PT DENIES PAIN AND NO SOB NOTED. WILL CONTINUE TO MONITOR PT.
[2018-08-01 07:38] LABS: PHOSPHORUS 4.6 mg/dL (2.5-4.9)
[2018-08-01 08:00] VITALS: BP 139/82
--- NOTE | 2018-08-01 08:00 | NUR ---
PT IS AWAKE AND JUST FINISHED EATING HIS BREAKFAST, VITAL SIGNS TAKEN AND IS WITHIN NORMAL LIMIT. NO SIGN OF DISTRESS NOTED AND WILL CONTINUE TO MONITOR PT.
[2018-08-01 08:04] LABS: ANION GAP 11.3 (8-16); CARBON DIOXIDE 29.4 mmol/L (21-32); POTASSIUM 3.7 mmol/L (3.5-5.1)
[2018-08-01 08:06] LABS: CREATININE 4.6 mg/dL (0.7-1.3)
[2018-08-01] MEDS: FUROSEMIDE 40 MG TAB PO SCH ×2 (09:00→16:42)
[2018-08-01] MEDS: amLODIPine 5 MG TAB PO SCH (09:00)
--- NOTE | 2018-08-01 09:35 | NUR ---
DIALYSIS WAS STARTED TO PT NOW. NO SIGN OF DISTRESS NOTED TO PT.
[2018-08-01] MEDS: SODIUM PHOS / POTASSIUM PHOS 1 PKT PDR PO SCH ×2 (09:38→20:47)
[2018-08-01] MEDS: VIT-B COMP/VIT-C/FOLIC ACID 1 TAB PO SCH (09:39)
[2018-08-01] MEDS: PANTOPRAZOLE 40 MG TABEC PO SCH ×2 (09:39→20:46)
[2018-08-01] MEDS: MAGNESIUM OXIDE 400 MG TAB PO SCH (09:39)
[2018-08-01] MEDS: FERROUS SULFATE 325 MG TABEC PO SCH (09:40)
[2018-08-01] MEDS: METOLAZONE 5 MG TAB PO SCH (09:43)
[2018-08-01] MEDS: SPIRONOLACTONE 25 MG TAB PO SCH (09:44)
[2018-08-01] MEDS ORDERED: SIMETHICONE 80 MG TAB.CHEW PO SCH (10:00)
--- NOTE | 2018-08-01 12:45 | NUR ---
DIALYSIS WAS FINISHED NOW AND OUTPUT WAS 1 LITER, NO SIGN OF DISTRESS NOTED AND PT'S BP IS 156/56, PULSE IS 85. WILL MONITOR PT.
--- NOTE | 2018-08-01 13:17 | NUR ---
PT IS AWAKE AND ASSISTED TO THE BATHROOM, ORAL MEDICATIONS WERE GIVEN AND PT TOLERATED IT, VITAL SIGNS TAKEN AND IS WITHIN NORMAL, NO SIGN OF DISTRESS NOTED AND WILL CONTINUE TO MONITOR PT.
--- NOTE | 2018-08-01 15:08 | NUR ---
08/01/18 RD FOLLOW UP COMPLETED PLEASE REFER TO NUTRITION ASSESSMENT UNDER CARE ACTIVITY FOR ESTIMATED NUTRITIONAL NEEDS. RD RECOMMENDATIONS: 1. CONTINUE RENAL DIET 2. CONTINUE NEPRO WITH MEALS 3. RD FOLLOWED UP ON RENAL DIET EDUCATION 4. RD TO FOLLOW-UP 5-7 DAYS, LOW RISK WARD BRITO, RD
[2018-08-01 16:00] VITALS: BP 164/91
--- NOTE | 2018-08-01 16:05 | NUR ---
PT IS AWAKE AND SEATED ON THE BED WITH SON ON THE BEDSIDE, VITAL SIGNS TAKEN AND BP IS 164/91, PULSE IS 77, DR. KILGORE WAS INFORMED OF THE PT'S BP RESULT.
[2018-08-01] MEDS: TAMSULOSIN 0.4 MG CAP PO SCH (16:42)
--- NOTE | 2018-08-01 16:45 | NUR ---
PT IS AWAKE LYING ON THE BED WITH SON ON THE BEDSIDE, ORAL MEDICATIONS GIVEN AND PT TOLERATED IT. NO SIGN OF DISTRESS NOTED AND WILL MONITOR PT.
--- NOTE | 2018-08-01 19:25 | NUR ---
ENDORSED PT TO LAWNMOWER REPAIR MECHANIC NURSE KATELIN FOR CONTINUITY OF CARE. PT IS STABLE AT THIS TIME.
--- NOTE | 2018-08-01 21:30 | NUR ---
RECEIVED PT FROM PM SHIFT NURSE-PREVIOUS RN FOR CONTINUITY OF CARE. PT IS AWAKE, OX4 PT IS MEDSURG AND AMBULATORY, PT HAS AN IV LINE ON THE LEFT HAND G. 22 ON SALINE LOCK AND A RT UPPER CHEST IJ TUNNEL CATHETER FOR HEMODIALYSIS ACCESS. PT BP WAS HIGH PER PREVIOUS NURSE AT 150/79. PREVIOUS NURSE SAID SHE RECENTLY GAVE CATAPRESS FOR REASSESSMENT AT 2217. WILL CONTINUE TO MONITOR
--- NOTE | 2018-08-01 22:17 | NUR ---
PT BP WAS REASSESSED= 161/91. DR. DELACRUZ INFORMED. SHE SAID TO MONITOR PT, AND REPORT IF SBP >180. WILL CONTINUE TO MONITOR
--- NOTE | 2018-08-01 23:46 | NUR ---
PT SLEEPING NO COMPLAINTS AT THIS TIME
[2018-08-02] VITALS: BP 161/87
--- NOTE | 2018-08-02 05:00 | NUR ---
GIVEN CATAPRES ROUTINE. BP WAS 161/87, 72. WILL REASSESS LATER
[2018-08-02] MEDS: cloNIDine 0.1 MG TAB PO SCH ×3 (05:39→20:11)
[2018-08-02 06:39] LABS: ANION GAP 9.4 (8-16); CARBON DIOXIDE 31.6 mmol/L (21-32); CREATININE 3.4 mg/dL (0.7-1.3)
[2018-08-02 06:54] LABS: MAGNESIUM 1.8 mg/dL (1.8-2.4); PHOSPHORUS 3.7 mg/dL (2.5-4.9)
--- NOTE | 2018-08-02 07:05 | NUR ---
08/01/18 LATE ENTRY. SPOKE WITH ALAN AT [facility]. STILL WAITING FOR CASE NUMBER FROM MEDICAL.
[2018-08-02 07:07] LABS: BASOPHILS # (AUTO) 0.1 K/uL (0.00-0.22); EOSINOPHILS # (AUTO) 0.3 K/uL (0-0.4); EOSINOPHILS % (AUTO) 5.3 % (0.0-4.0); HEMATOCRIT 22.4 % (36-52); HEMOGLOBIN 7.8 g/dL (12.0-18.0); LYMPHOCYTES # (AUTO) 0.8 K/uL (2.0-11.5); LYMPHOCYTES % (AUTO) 13.9 % (20.5-51.1); MEAN CORPUSCULAR HEMOGLOBIN 30 pg (27-31); MEAN CORPUSCULAR HGB CONC 35 g/dL (33-37); MEAN CORPUSCULAR VOLUME 86.6 fL (80-94); MONOCYTES # (AUTO) 0.6 K/uL (0.8-1.0); MONOCYTES % (AUTO) 9.9 % (1.7-9.3); NEUTROPHILS # (AUTO) 4.2 K/uL (1.8-7.7); NEUTROPHILS % (AUTO) 69.9 % (42.2-75.2); PLATELET COUNT (AUTO) 192 K/uL (140-450); RED BLOOD CELL COUNT(AUTO) 2.59 MIL/uL (4.20-6.10); RED CELL DISTRIBUTION WIDTH 12.1 % (11.6-13.7); WHITE BLOOD COUNT (AUTO) 6.1 K/uL (4.8-10.8)
--- NOTE | 2018-08-02 07:30 | NUR ---
RECEIVED PT FROM MACHINE HEEL BUILDER FLORECITA, PT IS AWAKE AND LYING ON THE BED WITH SIDE RAILS UP AND CALL LIGHT WITHIN REACH, BED IN LOW POSITION, PT HAS A RT UPPER CHEST IJ TUNNEL CATHETER FOR HEMODIALYSIS AND A PERIPHERAL LINE ON THE LEFT HAND G. 22 ON SALINE LOCK, PT IS ON RESTRICTED FLUID OF 800ML/DAY, PT IS AWARE AND VERBALIZED UNDERSTANDING. PT DENEIS PAIN AND NO SOB NOTED. WILL CONTINUE TO MONITOR PT.
--- NOTE | 2018-08-02 07:38 | NUR ---
REASSESSED PT'S BP WITH NEXT SHIFT NURSE. STILL AT 162/87, HR 73.
--- NOTE | 2018-08-02 07:39 | NUR ---
ENDORSED TO NEXT SHIFT FOR CONTINUITY OF CARE
[2018-08-02 08:00] VITALS: BP 162/87
[2018-08-02] MEDS: PANTOPRAZOLE 40 MG TABEC PO SCH ×2 (08:21→20:10)
[2018-08-02] MEDS: SODIUM PHOS / POTASSIUM PHOS 1 PKT PDR PO SCH ×2 (08:21→20:10)
[2018-08-02] MEDS: FUROSEMIDE 40 MG TAB PO SCH ×2 (08:21→16:45)
[2018-08-02] MEDS: METOLAZONE 5 MG TAB PO SCH (08:21)
[2018-08-02] MEDS: amLODIPine 5 MG TAB PO SCH (08:22)
[2018-08-02] MEDS: SPIRONOLACTONE 25 MG TAB PO SCH (08:22)
[2018-08-02] MEDS: FERROUS SULFATE 325 MG TABEC PO SCH (08:22)
[2018-08-02] MEDS: VIT-B COMP/VIT-C/FOLIC ACID 1 TAB PO SCH (08:22)
[2018-08-02] MEDS: MAGNESIUM OXIDE 400 MG TAB PO SCH (08:23)
--- NOTE | 2018-08-02 08:24 | NUR ---
PT IS AWAKE AND STANDING IN FRONT OF THE SINK AND SHAVING, PT WAS ASSISTED TO CHANGE GOWN, VITAL SIGNS TAKEN AND BP IS 162/87 AND PULSE IS 73, O2 SATURATION IS 98% AND RESPIRATION IS 16/MIN. ORAL MEDICATIONS GIVEN AND PT TOLERATED IT.NO SIGN OF DISTRESS NOTED AND PT VERBALIZED NO PAIN. WILL MONITOR PT.
--- NOTE | 2018-08-02 08:35 | NUR ---
PT IS AWAKE AND SEATED ON THE BED WITH BREAKFAST TRAY ON THE BEDSIDE, VITAL SIGNS TAKEN AND BP IS 158/88, PULSE IS73, O2 SATURATION IS 98% AND RESPIRATION IS 18/MIN, NO SIGN OF DISTRESS NOTED AND PT DENIES ANY PAIN. WILL MONITOR PT.
--- NOTE | 2018-08-02 09:30 | NUR ---
P.T. NOTES RECEIVED P.T. ORDER TO EVALUATE AND ENCOURAGE TO INCREASE AMBULATION. PATIENT HAS BEEN INDEPENDENTLY WALKING INSIDE THE ROOM AND ALONG THE HALLWAY WHILE PUSHING HIS IV POLE. NO P.T. EVAL NEEDED AT THIS TIME SINCE HE HAS BEEN UP AND ABOUT INSIDE HIS ROOM AND IN THE HALLWAY.
--- NOTE | 2018-08-02 11:00 | NUR ---
PT VERBALIZED HIS UNDERSTANDING AND APPRECIATION TOWARDS THE TEACHINGS BEING GIVEN TO HIM REGARDING TO FEEL BETTER AND THINGS TO AVOID TO AVOID GETTING ANXIOUS AND TIRED.
--- NOTE | 2018-08-02 11:35 | NUR ---
SPOKE WITH EDWIN FROM [facility]. HE SAID HE SPOKE WITH THE ADMITTING FROM [facility]. HE IS STILL WAITING FOR MEDICAL CASE NUMBER.
--- NOTE | 2018-08-02 13:30 | NUR ---
SINCE PATIENT IS STILL IN THE HOSPITAL, I CALL DR. BAHENA'S OFFICE, [phone] AND SPOKE WITH JEANNIE. I CANCELED THE PATIENT'S APPOINTMENT FOR TOMORROW AT 3:15P.M. I INFORMED YANELI RUBIN TO INFORM THE PATIENT.
--- NOTE | 2018-08-02 13:35 | NUR ---
INFORMED PT THAT NELI HOFFMAN CALLED AND SAID THAT THE APPOINTMENT SET UP FOR FF-UP WITH DR. BAHENA FOR THE PT WAS CANCELLED SINCE HE IS STILL CONFINED, PT VERBALIZED UNDERSTANDING.
[2018-08-02 16:00] VITALS: BP 155/85
[2018-08-02] MEDS: TAMSULOSIN 0.4 MG CAP PO SCH (16:44)
--- NOTE | 2018-08-02 16:47 | NUR ---
PT IS AWAKE AND SEATED ON THE BED, VITAL SIGNS TAKEN AND IS WITHIN NORMAL LIMIT, PT DENEIS PAIN AND VERBALIZED THAT HE AMBULATES INSIDE THE ROOM TOLERATED HE CAN. ORAL MEDICATIONS WERE GIVEN AND PT TOLERATED IT. NO SIGN OF DISTRESS NOTED. WILL MONITOR PT.
--- NOTE | 2018-08-02 18:49 | NUR ---
PT IS AWAKE AND LYING ON THE BED, WATCHING TV, NO SIGN OF DISTRESS NOTED AND RESPIRATION EVEN.
--- NOTE | 2018-08-02 19:28 | NUR ---
ENDORSED PT TO ELASTIC ATTACHER OVERLOCK NURSEKATELIN FOR CONTINUITY OF CARE, PT IS STABLE AT THIS TIME.
--- NOTE | 2018-08-02 19:29 | NUR ---
RECEIVED REPORT FROM DAY SHIFT RN. PT IS A&OX4. RESPIRATIONS ARE EQUAL AND UNLABORED. DENIES ANY PAIN. IV ON R FA 20G SALINE LOCK. R DALTON CATH HD MWF. HD YESTERDAY 1,000ML OUTPUT. HAS STRICT I&O. FLUID RESTRICTION OF 800ML/DAY. ORDER FOR HD TOMORROW. PT IS AMBULATORY. PLAN OF CARE WAS DISCUSSED WITH PATIENT. PT VERBALIZED UNDERSTANDING. SAFETY MEASURES ARE IN PLACE. WILL CONTINUE TO MONITOR.
--- NOTE | 2018-08-02 20:11 | NUR ---
DUE MEDICATIONS WERE GIVEN. PT TOLERATED WELL. ALL NEEDS MET AT THIS TIME. WILL CONTINUE TO MONITOR.
--- NOTE | 2018-08-02 22:00 | NUR ---
OLD IV IS INFILTRATED. NEW IV STARTED ON LEFT WRIST 20G SALINE LOCK. PT TOLERATED WELL. WILL CONTINUE TO MONITOR.
--- NOTE | 2018-08-03 | NUR ---
VITAL SIGNS ARE WITHIN NORMAL LIMITS. PT RESTING COMFORTABLY IN BED. NO S/S OF DISTRESS. CALL LIGHT WITHIN REACH.
[2018-08-03 00:06] VITALS: BP 157/85
--- NOTE | 2018-08-03 02:00 | NUR ---
PT SLEEPING COMFORTABLY IN BED. CALL LIGHT WITHIN REACH.
[2018-08-03] MEDS: cloNIDine 0.1 MG TAB PO SCH ×2 (05:00→13:38)
--- NOTE | 2018-08-03 05:00 | NUR ---
CATAPRES ADMINISTERED PER ORDERS. WILL REASSESS PTS B/P. CALL LIGHT WITHIN REACH.
--- NOTE | 2018-08-03 07:18 | NUR ---
RECEIVED PT REPORT FROM SUMMER NANNY NURSE. PT IS AWAKE AND ALERT, NO S/S OF ACUTE DISTRESS NOTED. NO SOB. PT ON ROOM AIR, SKIN INTACT. IV SITE NOTED ON THE L WRIST, 20 G, SALINE LOCKED. PT IS ON FLUID RESTRICTION 800 ML/DAY. DALTON CATH NOTED ON THE R CHEST FOR DIALYSIS. PT IS SCHEDULED TO HAVE DIALYSIS THIS MORNING. CALL LIGHT WITHIN REACH, WILL CONTINUE TO MONITOR PT.
--- NOTE | 2018-08-03 07:25 | NUR ---
ENDORSED PT TO DAY SHIFT RN. PT IS IN STABLE CONDITION.
[2018-08-03 08:00] VITALS: BP 165/91
--- NOTE | 2018-08-03 08:54 | NUR ---
Follow up appointment with Dr. Antoine on 08/17/18 at 1530 at [facility] [id number]. Instructed pt he or one of his family needs to sampler pickup labs slips from the clinic and lab works needs to be done before his appt day. Pt with verbal understanding. Informed Deangelo Henley RN pt already has a F/U appt. with Dr. Antoine.
[2018-08-03] MEDS: amLODIPine 5 MG TAB PO SCH (09:00)
[2018-08-03] MEDS: METOLAZONE 5 MG TAB PO SCH (09:00)
[2018-08-03] MEDS ORDERED: VIT-B COMP/VIT-C/FOLIC ACID 1 TAB PO SCH (09:00)
[2018-08-03] MEDS: FUROSEMIDE 40 MG TAB PO SCH (09:00)
[2018-08-03] MEDS: SODIUM PHOS / POTASSIUM PHOS 1 PKT PDR PO SCH (09:35)
[2018-08-03] MEDS: PANTOPRAZOLE 40 MG TABEC PO SCH (09:36)
[2018-08-03] MEDS: MAGNESIUM OXIDE 400 MG TAB PO SCH (09:36)
[2018-08-03] MEDS: FERROUS SULFATE 325 MG TABEC PO SCH (09:36)
[2018-08-03] MEDS: SPIRONOLACTONE 25 MG TAB PO SCH (09:37)
[2018-08-03] MEDS ORDERED: CLON0.1T42 PO (09:57)
[2018-08-03] MEDS ORDERED: AMLO5TAB6 PO (10:01)
[2018-08-03 10:36] LABS: ANION GAP 10.1 (8-16); CARBON DIOXIDE 30.6 mmol/L (21-32); POTASSIUM 3.7 mmol/L (3.5-5.1)
[2018-08-03 10:40] LABS: MAGNESIUM 1.9 mg/dL (1.8-2.4); PHOSPHORUS 4.8 mg/dL (2.5-4.9)
[2018-08-03 10:45] LABS: CREATININE 4.3 mg/dL (0.7-1.3)
--- NOTE | 2018-08-03 11:13 | NUR ---
Appt cancelled with Dr. Atnoine for 08/17/18 @ 2640.
--- NOTE | 2018-08-03 11:26 | NUR ---
Informed pt that his follow up appointment for next week with has been cancelled and the Dr.s in the dialysis clinic will see him there.
--- NOTE | 2018-08-03 11:38 | NUR ---
Informed pt that his dialysis appt with [facility] is tomorrow at 2:00 P.M. but he needs to be there by 1:00 p.m. Pt with verbal understanding.
--- NOTE | 2018-08-03 11:39 | NUR ---
921 RECEIVED A CALL FROM ALAN AT [facility] AND SHE STATED THAT PATIENT HAS BEEN CLEARED FINANCIALLY TO GO TO OUTPATIENT CLINIC FOR HD AND SHE WILL CONFIRM THE DAYS AND TIME AND CALL BACK. 1050 PER ALAN PATIENT IS SCHEDULED FOR ,SAT AT 1400 AND CAN BEGIN TOMORROW AND TO INFORM PATIENT THAT FOR THE FIRST VISIT TOMORROW HE SHOULD ARRIVE AT [facility] AT 1300. PER ALAN PATIENTS NEPHROLOGY GROUP SEES THEIR PATIENTS WEEKLY AT THE DIALYSIS CLINIC.
--- NOTE | 2018-08-03 12:30 | NUR ---
PT WANTS TO GO HOME, DIALYSIS CANCELLED FOR TODAY. PER DR MENARD, PT CAN DISCHARGE TODAY AND BE DIALYZED TOMORROW AT [facility].
[2018-08-03 16:32] VITALS: BP 157/87
--- NOTE | 2018-08-03 17:05 | NUR ---
PT HAS DC'D. PT WAS GIVEN DISCHARGE INSTRUCTIONS TO WHICH HE VERBALIZED UNDERSTANDING. SIGNATURES OBTAINED. WRIST BAND AND IV SITE REMOVED. PT WAS GIVEN FLU VACCINE UPON DC. PT LEFT IN STABLE CONDITION WITH ALL HIS BELONGINGS, WITH HIS SON.
== END 2018-08-03 17:05 | disposition home or self-care (01) | DRG 682 ==
LOC: MED 08:06 → MTU 11:01
PROVIDERS: ADMIT General Practice; ATTEND General Practice
PROC: 02HV33Z Insertion of Infusion Device into Superior Vena Cava, Percutaneous Approach (ICD-10-PCS; principal; 2018-07-21)
PROC: B548ZZA Ultrasonography of Superior Vena Cava, Guidance (ICD-10-PCS; 2018-07-21)
PROC: 30233N1 Transfusion of Nonautologous Red Blood Cells into Peripheral Vein, Percutaneous Approach (ICD-10-PCS; 2018-07-21)
PROC: 5A1D70Z Performance of Urinary Filtration, Intermittent, Less than 6 Hours Per Day (ICD-10-PCS; 2018-07-21)
PROC: 5A1D70Z Performance of Urinary Filtration, Intermittent, Less than 6 Hours Per Day (ICD-10-PCS; 2018-07-22)
PROC: 5A1D70Z Performance of Urinary Filtration, Intermittent, Less than 6 Hours Per Day (ICD-10-PCS; 2018-07-23)
PROC: 02PYX3Z Removal of Infusion Device from Great Vessel, External Approach (ICD-10-PCS; 2018-07-25)
PROC: 02HV33Z Insertion of Infusion Device into Superior Vena Cava, Percutaneous Approach (ICD-10-PCS; 2018-07-25)
PROC: B5181ZA Fluoroscopy of Superior Vena Cava using Low Osmolar Contrast, Guidance (ICD-10-PCS; 2018-07-25)
PROC: 5A1D70Z Performance of Urinary Filtration, Intermittent, Less than 6 Hours Per Day (ICD-10-PCS; 2018-07-25)
PROC: 5A1D70Z Performance of Urinary Filtration, Intermittent, Less than 6 Hours Per Day (ICD-10-PCS; 2018-07-27)
PROC: 5A1D70Z Performance of Urinary Filtration, Intermittent, Less than 6 Hours Per Day (ICD-10-PCS; 2018-07-29)
PROC: 5A1D70Z Performance of Urinary Filtration, Intermittent, Less than 6 Hours Per Day (ICD-10-PCS; 2018-08-01)
PROC: 3E02340 Introduction of Influenza Vaccine into Muscle, Percutaneous Approach (ICD-10-PCS; 2018-08-03)
PROC: 5A1D70Z Performance of Urinary Filtration, Intermittent, Less than 6 Hours Per Day (ICD-10-PCS; 2018-08-03)
DX: N17.0 Acute kidney failure with tubular necrosis (principal); G93.41 Metabolic encephalopathy; E43 Unspecified severe protein-calorie malnutrition; I50.43 Acute on chronic combined systolic (congestive) and diastolic (congestive) heart failure; E87.1 Hypo-osmolality and hyponatremia; I13.0 Hypertensive heart and chronic kidney disease with heart failure and stage 1 through stage 4 chronic kidney disease, or unspecified chronic kidney disease; I42.0 Dilated cardiomyopathy; N04.9 Nephrotic syndrome with unspecified morphologic changes; D64.9 Anemia, unspecified; E83.42 Hypomagnesemia; K74.60 Unspecified cirrhosis of liver; E88.09 Other disorders of plasma-protein metabolism, not elsewhere classified; F41.9 Anxiety disorder, unspecified; N40.0 Benign prostatic hyperplasia without lower urinary tract symptoms; I34.0 Nonrheumatic mitral (valve) insufficiency; K59.00 Constipation, unspecified; F41.0 Panic disorder [episodic paroxysmal anxiety]; F41.1 Generalized anxiety disorder; F32.9 Major depressive disorder, single episode, unspecified; N18.9 Chronic kidney disease, unspecified; Z68.30 Body mass index [BMI] 30.0-30.9, adult; Z23 Encounter for immunization; Z79.899 Other long term (current) drug therapy
CPT/HCPCS: 36415; 70450; 71045; 74018; 76770; 80048; 80053; 80305; 81001; 82140; 82272; 82533; 82570; 82607; 82728; 82746; 83036; 83540; 83605; 83690; 83735; 83880; 83930; 83935; 84100; 84133; 84157; 84165; 84295; 84300; 84436; 84443; 84479; 85025; 85045; 85610; 85730; 86038; 86160; 86592; 86704; 86706; 86708; 86709; 86803; 86886; 86900; 86901; 86920; 87081; 87340; 90658; 90732; 90935; 93005; 94640; 97110; 97116; 97530; 99285; C1750; J0690; J1644; J1940; J2001; J2250; J2270; J2405; J3010; J3475; J3490; J7030; J7060; J7620; P9016; P9046; Q0092

== ENCOUNTER 2018-08-24 22:39 | Emergency (ER) | payer MEDICAID, OTHER ==
[~2018-08-24] VITALS: Ht 170.2 cm; Wt 76.7 kg
[~2018-08-24 22:39] MED LIST changes: +AMLO5TAB6 PO; +ASCO500T45 PO; +CLON0.1T42 PO; +FER325 PO; -FOLI1TAB90 PO; +FURO40TA9 PO; -LOSA50TA1 PO; -METO25TA PO; +METO5TAB9 PO; -MULT-405 PO; +SPIR25TA PO; +TAMS0.4C96 PO; -THIA-34 PO; +VITA1TAB44 PO
[2018-08-24 22:48] VITALS: BP 153/87
--- NOTE | 2018-08-24 22:52 | NUR ---
TO ED 09 WITH STEADY GAIT.
--- NOTE | 2018-08-24 22:58 | NUR ---
BIB SELF WITH SON AT BEDSIDE. CO SUDDEN ONSET OF SEEING BLACK SPOTS TO LEFT EYE. NO PAIN OR OTHER NEURO DEFICIENCIES REPORTED. PT IS A/O X 4. SPEECH IS CLEAR AND AUDIBLE. NO FACIAL DROOPING PRESENT. PERRLA MANUELITO. PT REPORTS BEING HOSPITALIZED AT [place] 3 WEEKS AGO FOR STAGE 5 CHRONIC KIDNEY DISEASE X 2 1/2 WEEKS. PT REPORTS HX OF HTN AND KIDNEY DISEASE. MADE AWARE.
--- NOTE | 2018-08-24 23:06 | NUR ---
DR. BONE EVALUATING PT AT BEDSIDE.
--- NOTE | 2018-08-24 23:27 | NUR ---
Patient discharged with v/s stable. Written and verbal after care instructions given and explained. Patient verbalized understanding. Ambulatory with steady gait. All questions addressed prior to discharge. Advised to follow up with [facility].
[2018-08-24 23:31] VITALS: BP 153/84
== END 2018-08-24 23:27 | disposition home or self-care (01) ==
LOC: MED 22:39
DX: H43.392 Other vitreous opacities, left eye (principal); I12.0 Hypertensive chronic kidney disease with stage 5 chronic kidney disease or end stage renal disease; N18.6 End stage renal disease; Z79.899 Other long term (current) drug therapy
CPT/HCPCS: 99283

== ENCOUNTER 2018-12-25 11:38 | Inpatient (IN) | payer MEDICAID, OTHER ==
[~2018-12-25] VITALS: Ht 170.2 cm; Wt 66.7 kg
[2018-12-25 11:53] VITALS: BP 173/105
--- NOTE | 2018-12-25 12:10 | NUR ---
C/O HIGH BP, LAST HOME RECORDING 187/103 THIS MORNING. PT C/O HEADACHE/BLURRY VISION AND SLIGHT CP X 1 WEEK, NON RADIATING 3/10 AND TIGHT. PT RECEIVED DIALYSIS T//WED, LAST RECEIVED YESTERDAY. SHUNT TO L FOREARM, DALTON CATH TO R SHOULDER. BED IN LOW POSITION, SIDE RAIL UP X1, SON AT BEDSIDE.
[2018-12-25] MEDS ORDERED: ACETAMINOPHEN EXTRA STRENGTH 500 MG TAB PO ONE (12:25)
[2018-12-25] MEDS ORDERED: METOCLOPRAMIDE 10 MG/2 ML INJ VIAL IVP ONE (12:25)
[2018-12-25] MEDS ORDERED: LABETALOL 100 MG/20 ML VIAL IVP ONE (12:25)
[2018-12-25 13:06] LABS: BASOPHILS % (AUTO) 1.1 % (0.0-2.0); EOSINOPHILS # (AUTO) 0.1 K/uL (0-0.4); EOSINOPHILS % (AUTO) 3.3 % (0.0-4.0); HEMATOCRIT 26.5 % (36-52); HEMOGLOBIN 9.2 g/dL (12.0-18.0); LYMPHOCYTES # (AUTO) 0.4 K/uL (2.0-11.5); LYMPHOCYTES % (AUTO) 12.3 % (20.5-51.1); MEAN CORPUSCULAR HEMOGLOBIN 31 pg (27-31); MEAN CORPUSCULAR HGB CONC 35 g/dL (33-37); MEAN CORPUSCULAR VOLUME 88.1 fL (80-94); MONOCYTES # (AUTO) 0.3 K/uL (0.8-1.0); MONOCYTES % (AUTO) 9.4 % (1.7-9.3); NEUTROPHILS # (AUTO) 2.5 K/uL (1.8-7.7); NEUTROPHILS % (AUTO) 73.9 % (42.2-75.2); PLATELET COUNT (AUTO) 96 K/uL (140-450); WHITE BLOOD COUNT (AUTO) 3.4 K/uL (4.8-10.8)
[2018-12-25 13:13] LABS: ANION GAP 10.3 (8-16); CARBON DIOXIDE 33.1 mmol/L (21-32); POTASSIUM 4.4 mmol/L (3.5-5.1)
[2018-12-25 13:14] LABS: PROTHROMBIN TIME 10.7 secs (10.8-13.4)
[2018-12-25 13:15] LABS: CREATININE 5.7 mg/dL (0.7-1.3)
[2018-12-25 13:16] LABS: ALBUMIN 3.1 g/dL (3.4-5.0); TOTAL BILIRUBIN 0.8 mg/dL (0.0-1.0)
--- NOTE | 2018-12-25 13:30 | NUR ---
PT TAKEN TO CT VIA BED
--- NOTE | 2018-12-25 13:41 | NUR ---
PT RETURNED FROM CT VIA BED
--- NOTE | 2018-12-25 14:02 | NUR ---
PT IN BED RESTING FAMILY MEMBER AT BEDSIDE.
[2018-12-25] MEDS ORDERED: ASPIRIN 325 MG TAB PO ONE (14:10)
[2018-12-25] MEDS ORDERED: HEPARIN PER PHARMACY MC PRN (14:25)
--- NOTE | 2018-12-25 14:33 | NUR ---
CALLED PHARMACY FOR HEPARIN.
[2018-12-25] MEDS ORDERED: ALBUTEROL 0.083% 2.5 MG/3 ML NEBU INH PRN (14:40)
[2018-12-25] MEDS ORDERED: MORPHINE SULFATE 4 MG/ML SYR IVP PRN (14:40)
[2018-12-25] MEDS ORDERED: ACETAMINOPHEN 325 MG TAB PO PRN (14:40)
[2018-12-25] MEDS: hePARIN / DEXT 5% PREMIX 250 ML IV SCH (15:08)
--- NOTE | 2018-12-25 15:35 | NUR ---
Patient will be admitted to care of DR. DOBSON. Admited to TELEMETRY. Will go to room 126B. Belongings list completed. Report to CARYN LUNA.
[2018-12-25 16:00] VITALS: BP 160/89
--- NOTE | 2018-12-25 16:00 | NUR ---
RECEIVED PT REPORT FROM JEREMY (HE GOT REPORT FORM THE ED NURSE). PT IS AWAKE AND ALERT, NO S/S OF ACUTE DISTRESS, NO CHEST PAIN REPORTED. PT IS ON ROOM AIR, SKIN INTACT. TWO HD SHUNTS NOTED: L FA AV FISTULA, AND R UPPER CHEST DALTON CATH. IV SITE IS ON THE R AC 20 G, INFUSING HEPARIN 800 UNITS/HR. DR BRAVO TO SEE PT. PT IS AMBULATORY AND NOT A FALL RISK. CALL LIGHT IS WITHIN REACH, WILL CONTINUE TO MONITOR.
--- NOTE | 2018-12-25 17:43 | NUR ---
MILA POLLACK IS AWARE OF PT'S ORDER FOR DIALYSIS TODAY.
--- NOTE | 2018-12-25 18:19 | NUR ---
PT CONSENT OBTAINED FOR HEMODIALYSIS
[2018-12-25] MEDS: TAMSULOSIN 0.4 MG CAP PO SCH (18:20)
[2018-12-25] MEDS: FUROSEMIDE 40 MG TAB PO SCH (18:21)
--- NOTE | 2018-12-25 19:06 | NUR ---
PT'S CURRENT TROPONIN LEVEL IS 0.158; DR BRAVO NOTIFIED. HE SAID TO CALL HIM AGAIN IF TROPONIN LEVEL IS 2 OR ABOVE.
--- NOTE | 2018-12-25 19:10 | NUR ---
RECEIVED PT IN STABLE CONDITION FROM AM NURSE FROM CONTINUITY OF CARE. AWAKE,ALERT AND ORIENTED X4. ON TELE MONITOR. AMBULATORY. NO C/O ANY DISCOMFORT NOR PAIN NOTED. HAS HEPARIN DRIP INFUSING ON THE RT AC #20 . ON HD WITH ACCESS ON THE LT LOWER ARM AV SHUNT AND RT UPPER CHEST DALTON CATH WITH DRESSING INTACT. PLAN OF CARE DISCUSSED WITH PT/FAMILY AND VERBALIZED UNDERSTANDING. BED ON LOW POSITION. CALL LIGHT PLACED WITHIN REACH. WILL CONTINUE TO MONITOR.
--- NOTE | 2018-12-25 19:30 | NUR ---
ENDORSED PT TO BLOW TORCH BURNER NURSE IN STABLE CONDITION.
--- NOTE | 2018-12-25 19:50 | NUR ---
MILA,HD NURSE CAME IN FOR PT HD. WILL PROVIDE LAB RESULTS AND 2L NS IV FLUIDS PER REQUEST TO BE USED FOR DIALYSIS.
[2018-12-25 19:59] VITALS: BP 173/95
--- NOTE | 2018-12-25 20:30 | NUR ---
HD STILL GOING ON. HD NURSE THE ORDER IS TO REMOVE FLUIDS FROM THE BODY. PT IS IN STABLE CONDITION. WILL CONTINUE TO MONITOR.
--- NOTE | 2018-12-25 21:05 | NUR ---
BLOOD WAS DRAWN FOR PTT . WILL FOLLOW UP RESULT .
--- NOTE | 2018-12-25 22:02 | NUR ---
LAB CALLED FOR RESULT OF TROPONIN 0,149 AND PTT 52.8 RESULT OF TROPONIN TRENDING DOWN AND WITH HEPARIN PROTOCOL ,NO CHANGE ON THE PRESENT RATE. WILL ORDER NEXT PTT W/C WILL BE 0300. CARYN AMBROSE CHARGE AWARE. Addendum: 12/25/18 at 2212 by Mirela Lemus RN TROPONIN RESULT 0.149
[2018-12-25 22:30] VITALS: BP 164/95
--- NOTE | 2018-12-25 22:45 | NUR ---
A NEW IV ACCESS STARTED ON THE RT HAND G#22. CLEAR AND PATENT. WILL GIVE ZOFRAN IVP FOR NAUSEA
[2018-12-25] MEDS: ONDANSETRON 4 MG/2 ML VIAL IVP PRN (22:57)
[2018-12-25] MEDS: HYDROcodone/APAP 5/325 MG 1 TAB TAB PO PRN (22:58)
[2018-12-25] MEDS: cloNIDine 0.1 MG TAB PO SCH (22:59)
--- NOTE | 2018-12-25 22:59 | NUR ---
HD DONE @2230 OUTPUT 3.3 L. VS TAKEN. BLOOD PRESSURE 164/95 HR- 81 R-18 TEMP 98.5 WITH C/O NAUSEA AND PAIN ON THE RT LOWER SIDE OF THE MOUTH MOLAR. DUE BP MEDS CLONIDINE GIVEN AFTER NORCO AND ZOFRAN IVP WAS ALSO GIVEN. WILL CONTINUE TO MONITOR.
--- NOTE | 2018-12-26 00:50 | NUR ---
ABLE TO TALKED TO DR. LAZO CONFECTIONERY COOKER FOR DR. DOBSON AND MADE AWARE THAT PT WAS GIVEN NORCO EARLIER AND STILL C/O PAIN. REFUSED MORPHINE CAUSE FOR HIM IT MIGHT BE TOO STRONG. NEW ORDER TO GIVE NORCO 7.5/325 P0 Q6HRS PRN FOR MODERATE PAIN , TO GIVE ONE DOSE NOW.
[2018-12-26] MEDS ORDERED: HYDROcodone/APAP 7.5/325 MG 1 TAB PO SCH (01:00)
--- NOTE | 2018-12-26 03:00 | NUR ---
SLEEPING. NO S/S OF ANY DISCOMFORT NOR PAIN NOTED. WILL CONTINUE TO MONITOR.
[2018-12-26 03:11] LABS: EOSINOPHILS # (AUTO) 0.2 K/uL (0-0.4); EOSINOPHILS % (AUTO) 5.1 % (0.0-4.0); HEMATOCRIT 25.7 % (36-52); HEMOGLOBIN 8.8 g/dL (12.0-18.0); LYMPHOCYTES # (AUTO) 0.6 K/uL (2.0-11.5); LYMPHOCYTES % (AUTO) 12.6 % (20.5-51.1); MEAN CORPUSCULAR HEMOGLOBIN 30 pg (27-31); MEAN CORPUSCULAR HGB CONC 34 g/dL (33-37); MEAN CORPUSCULAR VOLUME 88.2 fL (80-94); MONOCYTES # (AUTO) 0.5 K/uL (0.8-1.0); MONOCYTES % (AUTO) 9.8 % (1.7-9.3); NEUTROPHILS # (AUTO) 3.5 K/uL (1.8-7.7); NEUTROPHILS % (AUTO) 71.5 % (42.2-75.2); PLATELET COUNT (AUTO) 97 K/uL (140-450); RED BLOOD CELL COUNT(AUTO) 2.91 MIL/uL (4.20-6.10); RED CELL DISTRIBUTION WIDTH 15.6 % (11.6-13.7); WHITE BLOOD COUNT (AUTO) 4.9 K/uL (4.8-10.8)
[2018-12-26 03:31] LABS: ANION GAP 12.5 (8-16); CARBON DIOXIDE 30.2 mmol/L (21-32); POTASSIUM 4.7 mmol/L (3.5-5.1)
[2018-12-26 03:38] LABS: CHOL/HDL RATIO 1.8 (1-4.5)
[2018-12-26 04:07] VITALS: BP 174/97
[2018-12-26] MEDS: cloNIDine 0.1 MG TAB PO SCH ×3 (04:10→20:37)
--- NOTE | 2018-12-26 04:20 | NUR ---
PTT 45.8 SEC . HEPARIN PROTOCOL FOLLOWED. BOLUS 2000 UNITS IVP GIVEN AND THE DRIP WILL BE INCREASED BY 130 UNITS/HR. WILL RUN AT 930 UNITS /HR.
[2018-12-26 04:21] LABS: CREATININE 6.7 mg/dL (0.7-1.3)
[2018-12-26] MEDS: hePARIN / DEXT 5% PREMIX 250 ML IV SCH (04:27)
[2018-12-26 05:40] VITALS: BP 156/87
[2018-12-26] MEDS ORDERED: HYDROcodone/APAP 7.5/325 MG 1 TAB PO PRN (07:00)
--- NOTE | 2018-12-26 07:20 | NUR ---
ENDORSED PT IN STABLE CONDITION TO AM NURSE . ALSO ENDORSED TO REESE JONES NURSE TO FOLLOW UP WITH DR. DOBSON ABOUT THE HEPARIN ORDER IF NEED TO CONTINUE, SHOULD HAVE ORDER.
--- NOTE | 2018-12-26 07:49 | NUR ---
RECEIVED HAND OFF REPORT FROM TECHNICAL SUPPORT INTERNSHIP NURSE PT IS AWAKE AND STABLE ALL SAFETY MEASURES ARE IN PLACE. WILL CONTINUE TO MONITOR.
[2018-12-26 08:00] VITALS: BP 165/95
--- NOTE | 2018-12-26 08:36 | NUR ---
PATIENT HAS BEEN SCREENED AND CATEGORIZED MODERATE NUTRITION RISK. PATIENT WILL BE SEEN WITHIN 3-5 DAYS OF ADMISSION. 12/28/18[address]
[2018-12-26] MEDS: ASPIRIN 81 MG TAB.CHEW PO SCH (08:45)
[2018-12-26] MEDS: FERROUS SULFATE 325 MG TABEC PO SCH (08:45)
[2018-12-26] MEDS: FUROSEMIDE 40 MG TAB PO SCH ×2 (08:45→16:21)
[2018-12-26] MEDS: amLODIPine 5 MG TAB PO SCH (08:46)
[2018-12-26] MEDS: METOLAZONE 5 MG TAB PO SCH (08:46)
[2018-12-26] MEDS: ASCORBIC ACID 500 MG TAB PO SCH (08:47)
[2018-12-26] MEDS: VIT-B COMP/VIT-C/FOLIC ACID 1 TAB PO SCH (08:47)
[2018-12-26] MEDS: SPIRONOLACTONE 25 MG TAB PO SCH (08:49)
[2018-12-26] MEDS ORDERED: CLINICAL MONITORING MC SCH (09:00)
[2018-12-26] MEDS ORDERED: NON-FORMULARY ITEM (Spironolactone (Aldactone) 25 MG) PO SCH (09:00)
[2018-12-26] MEDS ORDERED: LISINOPRIL 10 MG TAB PO SCH (09:00)
[2018-12-26] MEDS ORDERED: METOLAZONE 10 MG PO SCH (09:00)
[2018-12-26] MEDS: CHLORHEXADINE GLUC 2% CLOTH TP SCH (09:22)
--- NOTE | 2018-12-26 09:36 | NUR ---
FREQUENT ROUNDING ON PT PT IS STABLE AND IN NO APPARENT DISTRESS. ALL SAFETY MEASURES ARE IN PLACE WILL CONTINUE TO MONITOR.
--- NOTE | 2018-12-26 11:26 | NUR ---
FREQUENT ROUNDING ON PT PT IS STABLE AND IN NO APPARENT DISTRESS. ALL SAFETY MEASURES ARE IN PLACE. WILL CONTINUE TO MONITOR.
[2018-12-26 12:00] VITALS: BP 155/88
--- NOTE | 2018-12-26 13:25 | NUR ---
FREQUENT ROUNDING ON PT PT IS STABLE AND IN NO APPARENT DISTRESS. ALL SAFETY MEASURES ARE IN PLACE WILL CONTINUE TO MONITOR.
--- NOTE | 2018-12-26 14:11 | NUR ---
CALLED OFFICE OF DR ORONA [phone] SPOKE WITH JEROME, FOLLOW-UP APPOINTMENT MADE ON 12/28/18 AT 3PM AT [address] [address] [place] [address]. COPY OF APPOINTMENT GIVEN TO PATIENT. VERBALIZED UNDERSTANDING.
--- NOTE | 2018-12-26 15:45 | NUR ---
ENDORSED PT TO OTHER RN FOR CONTINUITY OF CARE. PT IS STABLE AND IN NO APPARENT DISTRESS. ALL SAFETY MEASURES ARE IN PLACE.
--- NOTE | 2018-12-26 15:46 | NUR ---
RECEIVED REPORT FROM RNKAREN. PATIENT SLEEPING, VISIBLE CHEST RISE. NO SIGNS OF DISTRESS ON RA. SAFETY PRECAUTIONS IN PLACE. WILL CONTINUE TO MONITOR.
[2018-12-26 16:00] VITALS: BP 149/90
[2018-12-26] MEDS: TAMSULOSIN 0.4 MG CAP PO SCH (16:21)
--- NOTE | 2018-12-26 16:21 | NUR ---
PATIENT VITALS STABLE, ADMINISTERED SCHEDULED MEDICATIONS. PATIENT TOLERATED WELL. PATIENT STATES HE IS SLEEPY BUT WANTS TO WALK AFTER HE TAKES A NAP. PATIENT IS SALINE LOCKED AT THIS TIME.
--- NOTE | 2018-12-26 19:12 | NUR ---
GAVE BEDSIDE REPORT TO SONG WRITER RNSYED. PATIENT IN STABLE CONDITION. FAMILY AT BEDSIDE. NO SIGNS OF DISTRESS.
--- NOTE | 2018-12-26 19:13 | NUR ---
RECEIVED REPORT FROM DAY SHIFT NURSE GAGANDEEP-RN AT BEDSIDE. PT RESTING IN BED WITH FAMILY AT BEDSIDE. PT AOX4, ON ROOM AIR WITH LEFT AC #20G-SL, FISTULA ON LEFT FA/WRIST- RESTRICTED EXTREMITY, AND DALTON CATHETER ON UPPER RIGHT CHEST. DISCUSSED PLAN OF CARE AND PT VERBALIZED UNDERSTANDING. NO S/S OF RESPIRATORY DISTRESS OR DISCOMFORT NOTED AT THIS TIME. BED IN LOWEST POSITION, BED BREAKS ON, BOTH SIDE RAILS UP. BEDSIDE TABLE AND CALL LIGHT ARE WITHIN REACH. WILL CONTINUE TO MONITOR.
[2018-12-26 20:00] VITALS: BP 162/95
--- NOTE | 2018-12-26 20:00 | NUR ---
VITAL SIGNS TAKEN AND TOLERATED WELL. ELEVATED BP NOTED AT THIS TIME, NON-SYMPTOMATIC. NO S/S OF RESPIRATORY DISTRESS OR DISCOMFORT NOTED AT THIS TIME. WILL CONTINUE TO MONITOR.
--- NOTE | 2018-12-26 20:37 | NUR ---
SCHEDULED MEDICATION CATAPRES GIVEN AND TOLERATED WELL. NO S/S OF RESPIRATORY DISTRESS OR DISCOMFORT NOTED AT THIS TIME. WILL CONTINUE TO MONITOR.
--- NOTE | 2018-12-26 22:07 | NUR ---
REASSESSMENT PB 169/96, HR 76. NO S/S OF RESPIRATORY DISTRESS OR DISCOMFORT NOTED AT THIS TIME. WILL CONTINUE TO MONITOR.
[2018-12-26] MEDS: hydrALAZINE 20 MG/ML VIAL IVP PRN (22:41)
--- NOTE | 2018-12-26 22:41 | NUR ---
APRESOLINE GIVEN FOR PB ELEVATION. PT TOLERATED WELL. NO S/S OF RESPIRATORY DISTRESS OR DISCOMFORT NOTED AT THIS TIME. WILL CONTINUE TO MONITOR.
--- NOTE | 2018-12-26 23:41 | NUR ---
REASSESSMENT BP 156/89, HR 76. NO S/S OF RESPIRATORY DISTRESS OR DISCOMFORT NOTED AT THIS TIME. WILL CONTINUE TO MONITOR.
[2018-12-27] VITALS: BP 156/89
[2018-12-27] MEDS: ONDANSETRON 4 MG/2 ML VIAL IVP PRN ×3 (01:37→12:41)
[2018-12-27] MEDS: HYDROcodone/APAP 5/325 MG 1 TAB TAB PO PRN (01:37)
--- NOTE | 2018-12-27 01:37 | NUR ---
PT C/O PAIN AND NAUSEA. FOLLOW UP CLERK NURSE YANG-CARYN ADMINISTERED NORCO AND ZOFRAN- PT TOLERATED WELL. NO S/S OF RESPIRATORY DISTRESS OR DISCOMFORT NOTED AT THIS TIME. WILL CONTINUE TO MONITOR.
[2018-12-27] MEDS: hydrALAZINE 20 MG/ML VIAL IVP PRN ×2 (02:50→23:07)
--- NOTE | 2018-12-27 02:50 | NUR ---
PT CONTINUES TO C/O NOT FEELING WELL, DOUBLE VISION, AND DIZZINESS. BP 169/94, HR 74. APRESOLINE GIVEN AND TOLERATED WELL. NO S/S OF RESPIRATORY DISTRESS OR DISCOMFORT NOTED AT THIS TIME. WILL CONTINUE TO MONITOR.
--- NOTE | 2018-12-27 03:50 | NUR ---
REASSESSMENT BP 157/80, HR 81. NO S/S OF RESPIRATORY DISTRESS OR DISCOMFORT NOTED AT THIS TIME. WILL CONTINUE TO MONITOR.
[2018-12-27 04:00] VITALS: BP 157/80
[2018-12-27] MEDS: cloNIDine 0.1 MG TAB PO SCH ×3 (05:00→21:10)
--- NOTE | 2018-12-27 05:00 | NUR ---
PT REFUSED SCHEDULED MEDICATION CATAPRES STATING HE HAD ALREADY TAKEN TOO MANY BP MEDICATIONS THAT ARE CAUSING HIM NOT TO FEEL WELL. REMINDED PT THAT BP IS STILL ELEVATED 153/88, HR 79 HOWEVER CONTINUES TO REFUSE. PT DOES HAS BP MEDS AT 0900 HOWEVER HE ALSO HAS SCHEDULED HD. PT IS AWARE AND CONTINUES TO REFUSE MEDICATION. CHARGE NURSE ANN IS AWARE. NO S/S OF RESPIRATORY DISTRESS OR DISCOMFORT NOTED AT THIS TIME. WILL CONTINUE TO MONITOR.
[2018-12-27 06:07] LABS: PHOSPHORUS 5.2 mg/dL (2.5-4.9)
[2018-12-27 06:09] LABS: HEPATITIS A ANTIBODY IGM Negative (Negative); HEPATITIS B CORE AB TOTAL Negative (Negative); HEPATITIS B SURFACE ANTIBODY Non Reactive (.); HEPATITIS B SURFACE ANTIGEN Negative (Negative)
[2018-12-27 06:09] LABS: ANION GAP 14.8 (8-16); CARBON DIOXIDE 28.5 mmol/L (21-32); POTASSIUM 5.3 mmol/L (3.5-5.1)
[2018-12-27 06:26] LABS: CREATININE 8.5 mg/dL (0.7-1.3)
[2018-12-27 06:34] LABS: BASOPHILS % (AUTO) 0.7 % (0.0-2.0); EOSINOPHILS # (AUTO) 0.2 K/uL (0-0.4); EOSINOPHILS % (AUTO) 4.5 % (0.0-4.0); HEMATOCRIT 23.8 % (36-52); HEMOGLOBIN 8.2 g/dL (12.0-18.0); LYMPHOCYTES # (AUTO) 0.6 K/uL (2.0-11.5); LYMPHOCYTES % (AUTO) 15.3 % (20.5-51.1); MEAN CORPUSCULAR HEMOGLOBIN 31 pg (27-31); MEAN CORPUSCULAR HGB CONC 35 g/dL (33-37); MONOCYTES # (AUTO) 0.4 K/uL (0.8-1.0); MONOCYTES % (AUTO) 8.7 % (1.7-9.3); NEUTROPHILS % (AUTO) 70.8 % (42.2-75.2); PLATELET COUNT (AUTO) 103 K/uL (140-450); RED CELL DISTRIBUTION WIDTH 15.8 % (11.6-13.7); WHITE BLOOD COUNT (AUTO) 4.2 K/uL (4.8-10.8)
--- NOTE | 2018-12-27 07:45 | NUR ---
RECEIVED HAND OFF REPORT FROM YOUTH MINISTER NURSE. PT IS AWAKE IN BED. PT APPEARS STABLE AND IN NO APPARENT DISTRESS. ALL SAFETY MEASURES ARE IN PLACE. IV SITE INTACT. NO SIGNS OF INFILTRATION OR INFLAMMATION. WILL CONTINUE TO MONITOR.
[2018-12-27 08:00] VITALS: BP 168/96
--- NOTE | 2018-12-27 08:09 | NUR ---
PT STATED HAS NAUSEA. WILL ADMINISTER ZOFRAN PER ORDERS. WITH MORNING MEDICATIONS.
[2018-12-27] MEDS: ASCORBIC ACID 500 MG TAB PO SCH (08:23)
[2018-12-27] MEDS: ASPIRIN 81 MG TAB.CHEW PO SCH (08:23)
[2018-12-27] MEDS: VIT-B COMP/VIT-C/FOLIC ACID 1 TAB PO SCH (08:23)
[2018-12-27] MEDS: FUROSEMIDE 40 MG TAB PO SCH ×2 (08:24→17:00)
[2018-12-27] MEDS: FERROUS SULFATE 325 MG TABEC PO SCH (08:24)
[2018-12-27] MEDS: amLODIPine 5 MG TAB PO SCH ×2 (08:24→10:42)
[2018-12-27] MEDS: SPIRONOLACTONE 25 MG TAB PO SCH ×2 (08:24→10:42)
[2018-12-27] MEDS: CHLORHEXADINE GLUC 2% CLOTH TP SCH (08:25)
[2018-12-27] MEDS: METOLAZONE 5 MG TAB PO SCH (08:25)
[2018-12-27] MEDS: LISINOPRIL 20 MG TAB PO SCH ×2 (08:25→10:41)
--- NOTE | 2018-12-27 10:18 | NUR ---
SONAL REASSESSMENT PT STATED THAT HE NO LONGER HAS NAUSEA AND WAS ABLE TO EAT SOME OF HIS BREAKFAST.
--- NOTE | 2018-12-27 10:43 | NUR ---
PER DR. Kim COLLINS'S ORDER I ADMINISTERED THE LISINOPRIL, SPIRONOLACOTONE, AND AMLODIPINE. THE DIALYSIS NURSE IS BEING CALLED TO ANOTHER PATIENT AND THE DIALYSIS IS BEING PUSHED BACK TO A LATER TIME.
[2018-12-27 12:00] VITALS: BP 152/83
[2018-12-27] MEDS ORDERED: ASPI81CT95 PO (12:13)
[2018-12-27] MEDS ORDERED: LISI-420 PO (12:13)
[2018-12-27] MEDS ORDERED: HYDR-4420 PO (12:13)
--- NOTE | 2018-12-27 13:07 | NUR ---
HELD CLONIDINE PT IS SCHEDULED FOR DIALYSIS THIS AFTERNOON ALREADY ADMINISTERED AMLODIPINE AND SPIRONOLACTONE AND LISINOPRIL PER DR. Kim CASTRO ORDERS
--- NOTE | 2018-12-27 15:00 | NUR ---
FREQUENT ROUNDING ON PT PT APPEARS STABLE AND IN NO APPARENT DISTRESS. ALL SAFETY MEASURES ARE IN PLACE. WILL CONTINUE TO MONITOR.
[2018-12-27 16:00] VITALS: BP 159/91
[2018-12-27] MEDS: TAMSULOSIN 0.4 MG CAP PO SCH (17:22)
--- NOTE | 2018-12-27 17:59 | NUR ---
JUAN RAMON ALVARES PT WAS SUPPOSED TO HAVE DIALYSIS THIS MORNING STILL WAITING ON THE DIALYSIS NURSE TO COME AND DO HIS DIALYSIS.
--- NOTE | 2018-12-27 19:28 | NUR ---
ENDORSED PT TO ADVERTISING MATERIAL DISTRIBUTOR NURSE. PT IS AWAKE IN BED. PT APPEARS STABLE AND IN NO APPARENT DISTRESS. ALL SAFETY MEASURES ARE IN PLACE. DIALYSIS NURSE IS AT BEDSIDE DIALYSIS STARTED AT AROUND 1845
--- NOTE | 2018-12-27 19:30 | NUR ---
ASSUMED CARE OF PATIENT, AWAKE, ALERT AND ORIENTED. NO COMPLAINS. ONGOING HEMODIALYSIS NOTED, LASER SET UP OPERATOR AT BEDSIDE. CALL LIGHT WITHIN REACH.
[2018-12-27 20:31] VITALS: BP 159/93
[2018-12-27] MEDS: hydrALAZINE 25 MG TAB PO SCH (21:10)
--- NOTE | 2018-12-27 21:15 | NUR ---
DUE MEDS GIVEN. HEMODIALYSIS ALMOST DONE PER RN. CALL LIGHT WITHIN REACH. PLAN OF CARE DISCUSSED WITH PATIENT, VERBALIZED UNDERSTANDING WELL. CARE BOARD UPDATED.
--- NOTE | 2018-12-27 22:00 | NUR ---
HEMODIALYSIS COMPLETED, 3L OUTPUT. NO COMPLAINS. VITAL SIGNS STABLE. TOLERATED WELL. CALL LIGHT WITHIN REACH.
[2018-12-28 00:29] VITALS: BP 157/86
--- NOTE | 2018-12-28 00:42 | NUR ---
ASLEEP EASILY AROUSABLE. NO COMPLAINS. VITAL SIGNS STABLE. AFEBRILE. CALL LIGHT WITHIN REACH.
--- NOTE | 2018-12-28 02:30 | NUR ---
ASLEEP NO COMPLAINS. AFEBRILE. CALL LIGHT WITHIN REACH.
[2018-12-28 04:21] VITALS: BP 167/95
--- NOTE | 2018-12-28 04:26 | NUR ---
ASLEEP NO COMPLAINS. VITAL SIGNS STABLE. CALL LIGHT WITHIN REACH.
[2018-12-28] MEDS: cloNIDine 0.1 MG TAB PO SCH ×2 (04:47→12:25)
[2018-12-28 06:16] LABS: BASOPHILS % (AUTO) 0.6 % (0.0-2.0); EOSINOPHILS # (AUTO) 0.1 K/uL (0-0.4); EOSINOPHILS % (AUTO) 2.4 % (0.0-4.0); HEMATOCRIT 23.3 % (36-52); HEMOGLOBIN 8.2 g/dL (12.0-18.0); LYMPHOCYTES # (AUTO) 0.5 K/uL (2.0-11.5); LYMPHOCYTES % (AUTO) 10.8 % (20.5-51.1); MEAN CORPUSCULAR HEMOGLOBIN 31 pg (27-31); MEAN CORPUSCULAR HGB CONC 35 g/dL (33-37); MEAN CORPUSCULAR VOLUME 88.2 fL (80-94); MONOCYTES # (AUTO) 0.3 K/uL (0.8-1.0); MONOCYTES % (AUTO) 7.3 % (1.7-9.3); NEUTROPHILS # (AUTO) 3.5 K/uL (1.8-7.7); NEUTROPHILS % (AUTO) 78.9 % (42.2-75.2); PLATELET COUNT (AUTO) 100 K/uL (140-450); RED BLOOD CELL COUNT(AUTO) 2.65 MIL/uL (4.20-6.10); RED CELL DISTRIBUTION WIDTH 15.4 % (11.6-13.7); WHITE BLOOD COUNT (AUTO) 4.5 K/uL (4.8-10.8)
[2018-12-28 06:17] LABS: ANION GAP 12.6 (8-16); CARBON DIOXIDE 29.5 mmol/L (21-32); POTASSIUM 4.1 mmol/L (3.5-5.1)
[2018-12-28 06:22] LABS: CREATININE 5.8 mg/dL (0.7-1.3)
--- NOTE | 2018-12-28 06:28 | NUR ---
SLEEPING WELL. NO COMPLAINS. CALL LIGHT WITHIN REACH.
--- NOTE | 2018-12-28 07:19 | NUR ---
ENDORSED CARE AT BEDSIDE WITH KAREN RUBIN, PATIENT IN STABLE CONDITION.
--- NOTE | 2018-12-28 07:25 | NUR ---
RECEIVED HAND OFF REPORT FROM FOOD SALES CLERK NURSE PT IS AWAKE IN BED PT APPEARS STABLE AND IN NO APPARENT DISTRESS, ALL SAFETY MEASURES ARE IN PLACE, WILL CONTINUE TO MONITOR.
[2018-12-28 08:00] VITALS: BP 157/91
[2018-12-28] MEDS: SPIRONOLACTONE 25 MG TAB PO SCH (08:28)
[2018-12-28] MEDS: FERROUS SULFATE 325 MG TABEC PO SCH (08:28)
[2018-12-28] MEDS: METOLAZONE 5 MG TAB PO SCH (08:28)
[2018-12-28] MEDS: amLODIPine 5 MG TAB PO SCH (08:29)
[2018-12-28] MEDS: ASCORBIC ACID 500 MG TAB PO SCH (08:29)
[2018-12-28] MEDS: hydrALAZINE 25 MG TAB PO SCH (08:29)
[2018-12-28] MEDS: VIT-B COMP/VIT-C/FOLIC ACID 1 TAB PO SCH (08:29)
[2018-12-28] MEDS: LISINOPRIL 20 MG TAB PO SCH (08:29)
[2018-12-28] MEDS: ASPIRIN 81 MG TAB.CHEW PO SCH (08:30)
[2018-12-28] MEDS: FUROSEMIDE 40 MG TAB PO SCH (08:30)
[2018-12-28] MEDS: CHLORHEXADINE GLUC 2% CLOTH TP SCH (08:33)
[2018-12-28] MEDS ORDERED: hydrALAZINE 25 MG TAB PO SCH ×3 (09:00→13:00)
--- NOTE | 2018-12-28 09:49 | NUR ---
SPOKE WITH NAVI THE PHARMACIST. I GAVE 25MG HYDRALAZINE AT [address] CHANGED THE ORDER FOR 50MG. NAVI SAID SHE WILL REVISE THE ORDER
--- NOTE | 2018-12-28 11:28 | NUR ---
FREQUENT ROUNDING ON PT PT IS ASLEEP IN BED. NOTABLE CHEST RISE AND FALL. ALL SAFETY MEASURES ARE IN PLACE. WILL CONTINUE TO MONITOR.
[2018-12-28 12:00] VITALS: BP 143/77
--- NOTE | 2018-12-28 13:25 | NUR ---
FREQUENT ROUNDING ON PT PT APPEARS STABLE AND IN NO APPARENT DISTRESS. ALL SAFETY MEASURES ARE IN PLACE WILL CONTINUE TO MONITOR.
[2018-12-28 16:03] VITALS: BP 147/77
--- NOTE | 2018-12-28 16:30 | NUR ---
REVIEWED DISCHARGE INSTRUCTIONS INFORMED PATIENT TO FOLLOW UP WITH HIS PRIMARY CARE PROVIDER AND CONTINUOUS IMPROVEMENT LEAD WITHIN THE NEXT 1-2 WEEKS. PROVIDED PT WITH HIS PRESCRIPTION. ANSWERED ALL THE PATIENTS QUESTIONS. REMOVED IV CATH. IV TIP INTACT. REMOVED PT ID BAND. PT AMBULATED OFF THE UNIT WITH HIS SON. PT AMBULATED WITH A STEADY GAIT. PT WAS STABLE AND IN NO APPARENT DISTRESS.
[2018-12-29] MEDS ORDERED: EPOETIN ALFA 2,000 UNITS/ML VIAL SUBQ SCH (09:00)
== END 2018-12-28 16:35 | disposition home or self-care (01) | DRG 190 ==
LOC: MED 11:38 → MMU 14:38
PROVIDERS: ADMIT Internal Medicine Pulmonary Disease; ATTEND Internal Medicine Pulmonary Disease
PROC: 5A1D70Z Performance of Urinary Filtration, Intermittent, Less than 6 Hours Per Day (ICD-10-PCS; principal; 2018-12-25)
PROC: 5A1D70Z Performance of Urinary Filtration, Intermittent, Less than 6 Hours Per Day (ICD-10-PCS; 2018-12-27)
DX: I21.A1 Myocardial infarction type 2 (principal); I13.2 Hypertensive heart and chronic kidney disease with heart failure and with stage 5 chronic kidney disease, or end stage renal disease; D69.6 Thrombocytopenia, unspecified; E87.70 Fluid overload, unspecified; N18.6 End stage renal disease; I50.9 Heart failure, unspecified; N40.0 Benign prostatic hyperplasia without lower urinary tract symptoms; R73.9 Hyperglycemia, unspecified; D64.9 Anemia, unspecified; Z99.2 Dependence on renal dialysis; Z79.899 Other long term (current) drug therapy
CPT/HCPCS: 36415; 70450; 71045; 80048; 80053; 82728; 83540; 83735; 83880; 84100; 84484; 85025; 85610; 85730; 86704; 86706; 86708; 86709; 86803; 87081; 87340; 90935; 93005; 96374; 96375; 99291; G0482; J0360; J1644; J2405; J2765; J3490; J7030; Q0092

== ENCOUNTER 2020-04-07 07:48 | Emergency (ER) | payer OTHER ==
[~2020-04-07] VITALS: Ht 167.6 cm; Wt 63.5 kg
[~2020-04-07 07:48] MED LIST changes: +AMLO10TA4 PO; -AMLO5TAB6 PO; +APR10 PO; -ASCO500T45 PO; +ASPI-1884 PO; -CLON0.1T42 PO; +CLON0.3T23 PO; -FER325 PO; -FURO40TA9 PO; +LISI40TA4 PO; -METO5TAB9 PO; +OMEP20TC10 PO; +SEVE800T25 PO; -SPIR25TA PO; +SPIR50TA PO; -VITA1TAB44 PO; +[UNRECOGNIZED DRUG - CODE] PO
[2020-04-07 07:55] VITALS: BP 175/95
--- NOTE | 2020-04-07 08:08 | NUR ---
DR. BONE EVALUATING PT AT BEDSIDE
--- NOTE | 2020-04-07 08:13 | NUR ---
54/M C/O NAUSEA SINCE LAST NIGHT. ONE EPISODE OF VOMITUS AFTER DRINKING SPRITE THIS MORNING. PT STATES WAS RECENTLY DISCHARGED FROM [facility] ON 04/02 FOR N/V. PT REPORTS UPPER ABDOMINAL "MUSCLE PAIN". BP 175/95 AT TRIAGE. LEFT FOREARM AV SHUNT FOR HEMODIALYSIS. LAST HD YESTERDAY [facility]. PT CONNECTED TO BEDSIDE MONITOR. MED HX: HTN, ESRD WITH HD ON , WED. Addendum: 04/07/20 at 0838 by YOAN ADMITTED 04/02/20 AND D/C ON 04/04
[2020-04-07] MEDS ORDERED: HALOPERIDOL IM 5 MG/ML VIAL IVP ONE (08:15)
[2020-04-07] MEDS ORDERED: PANTOPRAZOLE 40 MG INJ VIAL IVP ONE (08:15)
[2020-04-07] MEDS ORDERED: diphenhydrAMINE 50 MG/ML VIAL IVP ONE (08:15)
--- NOTE | 2020-04-07 10:30 | NUR ---
Patient discharged with v/s stable. Written and verbal after care instructions given and explained. Patient alert, oriented and verbalized understanding of instructions. Ambulatory with steady gait. All questions addressed prior to discharge. ID band removed. Patient advised to follow up with PMD. Rx of BENADRYL AND REGLAN given. Patient educated on indication of medication including possible reaction and side effects. Opportunity to ask questions provided and answered.
[2020-04-07 10:31] VITALS: BP 171/86
== END 2020-04-07 10:30 | disposition home or self-care (01) ==
LOC: MED 07:48
DX: K31.84 Gastroparesis (principal); I11.0 Hypertensive heart disease with heart failure; I50.9 Heart failure, unspecified; Z98.890 Other specified postprocedural states; Z79.899 Other long term (current) drug therapy; Z79.82 Long term (current) use of aspirin
CPT/HCPCS: 96374; 96375; 99284; C9113; J1200; J1630

== ENCOUNTER 2020-12-18 19:09 | Emergency (ER) | payer OTHER ==
[~2020-12-18] VITALS: Ht 170.2 cm; Wt 65.8 kg
[~2020-12-18 19:09] MED LIST changes: -AMLO10TA4 PO; +AMLO10TA89 PO; +CLON-865 PO; -CLON0.3T23 PO; -LISI40TA4 PO; +LISI40TA8 PO
[2020-12-18 19:36] VITALS: BP 172/103
--- NOTE | 2020-12-18 19:43 | NUR ---
pt w/c assisted to bed #7
--- NOTE | 2020-12-18 20:30 | NUR ---
DR. YEUNG AT BEDSIDE EXAMINING PATIENT
[2020-12-18] MEDS ORDERED: NACL 0.9% 500 ML IV ONE (20:35)
--- NOTE | 2020-12-18 20:40 | NUR ---
Lab at bedside for blood draw
--- NOTE | 2020-12-18 20:45 | NUR ---
RAD at bedside
--- NOTE | 2020-12-18 20:56 | NUR ---
COVID SUKH SWAB COLLECTED AND SENT TO LAB.
--- NOTE | 2020-12-18 20:57 | NUR ---
PT TAKEN TO CT
[2020-12-18 21:02] LABS: BASOPHILS % (AUTO) 0.4 % (0.0-2.0); HEMOGLOBIN 9.8 g/dL (12.0-18.0); LYMPHOCYTES # (AUTO) 0.3 K/uL (2.0-11.5); LYMPHOCYTES % (AUTO) 5.2 % (20.5-51.1); MEAN CORPUSCULAR HEMOGLOBIN 34 pg (27-31); MEAN CORPUSCULAR HGB CONC 34 g/dL (33-37); MEAN CORPUSCULAR VOLUME 100.2 fL (80-94); MONOCYTES # (AUTO) 0.5 K/uL (0.8-1.0); MONOCYTES % (AUTO) 8.9 % (1.7-9.3); NEUTROPHILS # (AUTO) 5.1 K/uL (1.8-7.7); NEUTROPHILS % (AUTO) 85.5 % (42.2-75.2); PLATELET COUNT (AUTO) 88 K/uL (140-450); RED BLOOD CELL COUNT(AUTO) 2.89 MIL/uL (4.20-6.10)
--- NOTE | 2020-12-18 21:09 | NUR ---
PT BACK FROM CT
[2020-12-18] MEDS ORDERED: fentaNYL citrate 0.05 MG/ML VIAL IVP ONE (21:10)
[2020-12-18 21:19] LABS: ALBUMIN 3.4 g/dL (3.4-5.0); ANION GAP 16.2 (8-16); ASPARTATE AMINOTRANSFERASE 31 U/L (15-37); CARBON DIOXIDE 28.3 mmol/L (21-32); CHLORIDE 95 mmol/L (98-107); GFR ARICAN-AMERICAN 10 mL/min (>90); GLUCOSE 172 mg/dL (74-106); POTASSIUM 5.5 mmol/L (3.5-5.1); SODIUM SERUM 134 mmol/L (136-145); UREA NITROGEN, BLOOD 58 mg/dL (7-18)
[2020-12-18] MEDS ORDERED: LABETALOL 100 MG/20 ML VIAL IVP ONE (21:20)
[2020-12-18 21:21] LABS: CREATININE 7.3 mg/dL (0.6-1.3)
--- NOTE | 2020-12-18 21:21 | NUR ---
IV ACCESS PLACED ON RIGHT AC G18
[2020-12-18 21:32] LABS: ACETAMINOPHEN < 0.5 ug/ml (10-30)
[2020-12-18] MEDS ORDERED: DESMOPRESSIN 4 MCG/ML AMP IV ONE (21:35)
[2020-12-18] MEDS ORDERED: levETIRAcetam 1,000 MG in NACL 0.9% 100 ML IV ONE (21:50)
[2020-12-18] MEDS ORDERED: NICARDIPINE HYDROCHLORIDE 25 MG in NACL 0.9% 240 ML IV ONE (21:55)
[2020-12-18] MEDS ORDERED: NICARDIPINE HYDROCHLORIDE 2.5 MG/ML VIAL IV ONE (21:55)
--- NOTE | 2020-12-18 22:03 | NUR ---
[facility] CONTACTED AND GAVE REPORT TO FREDRICK Soliz RN. TRANSPORT ETA IN 30 MINS.
--- NOTE | 2020-12-18 22:05 | NUR ---
NEW IV ACCESS ON RIGHT HAND G20 STARTED BY WARD RUBIN
[2020-12-18] MEDS ORDERED: levETIRAcetam 100 MG/ML VIAL IV ONE (22:15)
[2020-12-18 22:28] LABS: PROTHROMBIN TIME 11.9 secs (10.8-13.4)
[2020-12-18 22:50] VITALS: BP 145/81
--- NOTE | 2020-12-18 22:50 | NUR ---
Patient to be transferred to [facility]. Is being transferred due to HIGHER LEVEL OF CARE. Receiving facility has accepting physician and available space. ER physician has signed transfer form. Patient or responsible republican has agreed to transfer and signed form. Patient belongings inventoried and will be sent with patient. Copy of nursing notes, lab reports, EKG, Physicians Orders and X-rays to be sent with patient. Report called to FREDRICK Soliz RN at receiving facility. [facility] ambulance service TRANSPORTING PATIENT AND SON. VS STABLE.
== END 2020-12-18 22:50 | disposition short-term general hospital (02) ==
LOC: MED 19:09
DX: I61.9 Nontraumatic intracerebral hemorrhage, unspecified (principal); I13.2 Hypertensive heart and chronic kidney disease with heart failure and with stage 5 chronic kidney disease, or end stage renal disease; N18.6 End stage renal disease; I50.9 Heart failure, unspecified; R05 Cough; M54.2 Cervicalgia; Z20.822 Contact with and (suspected) exposure to COVID-19; Z99.2 Dependence on renal dialysis; R79.89 Other specified abnormal findings of blood chemistry; E87.5 Hyperkalemia; I16.0 Hypertensive urgency; Z98.890 Other specified postprocedural states; Z79.899 Other long term (current) drug therapy; Z79.82 Long term (current) use of aspirin
CPT/HCPCS: 36415; 70450; 71045; 80053; 84484; 85025; 85610; 85730; 87426; 93005; 96365; 96366; 96368; 96375; 99291; G0480; G0482; J1953; J2597; J3010; J3490; J7030